=== PATIENT | female | born 1955 | race Caucasian/White ===

== ENCOUNTER 2016-09-13 10:40 | Inpatient (IN) | payer MEDICARE ==
[2016-10-14 09:53] VITALS: BMI 53.5
--- NOTE | 2016-10-14 15:25 | HP ---
HISTORY AND PHYSICAL CHIEF COMPLAINT: Right knee pain. HISTORY OF PRESENT ILLNESS: The patient is a 61-year-old female on disability, who presents with progressive right knee pain secondary to osteoarthrosis despite extensive conservative measures. She notes she is having pain that limits her normal function and activities. PAST MEDICAL HISTORY: Significant for asthma, type 2 diabetes, hypothyroidism, and arthritis. PAST SURGICAL HISTORY: Significant for right and left knee surgery, left total knee arthroplasty, previous incision and drainage of an infected right prepatellar bursitis. CURRENT MEDICATIONS: 1. Januvia. 2. Meloxicam. 3. Metformin. 4. Neurontin. 5. Synthroid. She denies drug allergies. FAMILY HISTORY: Significant for cancer. SOCIAL HISTORY: Negative for current tobacco or alcohol use. 16-POINT REVIEW OF SYSTEMS: Otherwise reviewed and is noncontributory. PHYSICAL EXAMINATION: The patient is approximately 5 foot tall, 288 pounds of endomorphic habitus. HEENT exam is nonfocal. Neck is supple. She has painless passive motion of the right hip. Straight leg raise is negative. Active motion right knee -6 to 100 degrees of flexion. She is tender about the lateral joint line. She has genu valgum alignment. Her distal neurovascular exam appears to be intact in the right lower extremity. X-rays to include weightbearing notch, lateral, and Merchant views of the right knee obtained in the office show severe lateral and patellofemoral compartment narrowing. IMPRESSION: 1. Right knee severe lateral and patellofemoral compartment osteoarthrosis. 2. Increased body mass index. 3. Uek-[id number] diabetes. RECOMMENDATIONS: I talked to the patient at length regarding her treatment options. At this point, she is severely limited because of pain related to her osteoarthrosis despite conservative measures. After a thorough discussion, she opts to proceed with surgery. We will plan to proceed with a right total knee arthroplasty. Risks and benefits were discussed at length in layman's terms. We will institute DVT prophylaxis postoperatively. The patient underwent preoperative medical evaluation by Dr. Maxim Montilla. MMSLAVAL / NELDA: [id number] /
[2016-10-18] MEDS ORDERED: ceFAZolin 3 GM in SODIUM CHLORIDE 0.9% 100 ML IVPB ONE (05:00)
[2016-10-18] MEDS ORDERED: ACETAMINOPHEN TAB 500 MG TAB PO ONE (05:00)
[2016-10-18] MEDS ORDERED: TRANEXAMIC ACID 1,000 MG in SODIUM CHLORIDE 0.9% 100 ML IVPB ONE ×4 (05:00)
[2016-10-18] MEDS ORDERED: MELOXICAM 7.5 MG TAB PO ONE (05:00)
[2016-10-18] MEDS ORDERED: SCOPOLAMINE 1.5MG/72HR PATCH TRANSDERM ONE (05:25)
[2016-10-18] MEDS ORDERED: HYDROmorphone 1 MG/ML 1 ML SYRINGE IVP PRN ×2 (05:25→09:57)
[2016-10-18] MEDS ORDERED: MIDAZOLAM 2 MG/2 ML VIAL IV PRN (05:25)
[2016-10-18] MEDS ORDERED: LIDOCAINE 1% 20 ML VIAL (10MG/ML) FOR IV START INTRADERMA PRN (05:25)
[2016-10-18] MEDS ORDERED: ONDANSETRON 4 MG/2 ML VIAL IVP ONE (05:25)
[2016-10-18] MEDS ORDERED: fentaNYL (PF) 50 MCG/ML 20 ML VIAL IVP PRN (05:25)
[2016-10-18] MEDS ORDERED: DEXAMETHASONE SOD PHOSPHATE 10 MG/ML 1 ML VIAL IV ONE (05:25)
[2016-10-18 06:52] LABS: Glucose,Whole Blood 136 mg/dL (75-99)
[2016-10-18] MEDS: LACTATED RINGERS 1,000 ML IV SCH (07:00)
[2016-10-18 07:08] LABS: Prothrombin Time 9.8 sec (9.0-12.0)
[2016-10-18 07:22] LABS: Partial Thromboplastin Time 18.6 sec (22.0-30.0)
[2016-10-18] MEDS ORDERED: TRANEXAMIC ACID 1,000 MG/10 ML VIAL ONE (07:53)
[2016-10-18] MEDS ORDERED: MIDAZOLAM 2 MG/2 ML VIAL ONE (07:53)
[2016-10-18] MEDS ORDERED: fentaNYL (PF) 50 MCG/ML 2 ML AMP ONE (07:53)
[2016-10-18] MEDS ORDERED: PROPOFOL 10 MG/ML 20 ML VIAL IV ONE (07:53)
[2016-10-18] MEDS ORDERED: SODIUM CHLORIDE 0.9% 100 ML BAG ONE (07:53)
[2016-10-18] MEDS ORDERED: ONDANSETRON 4 MG/2 ML VIAL ONE (07:53)
[2016-10-18] MEDS ORDERED: ROPIVACAINE 1,100 MG, SODIUM CHLORIDE 0.9% 330 ML MISCELLANE PRN ×2 (08:42)
--- NOTE | 2016-10-18 08:43 | P.ONQ ---
Anesthesiology Proc Note - PNB - Peripheral Nerve Block Performed Right Adductor Canal Time Out Performed: Yes Indication: Acute Post-Operative Pain, Dx/Pain Location (Dr Soriano) Sedation Type: Sedate with meaningful contact maintained Preparation: Sterile Dressing Position: Supine Catheter: Indwelling Needle Types: Other (see comment) ([place]) Needle Size: 100mm (4") Needle Gauge: 18 Technique: Ultrasound Injectate: 0.5% Ropivacaine (see comment for volume) (20cc) Blood Aspirated: No Pain Paresthesia on Injection Noted: No Resistance on Injection: Normal Events: Uneventful and Well Tolerated
[2016-10-18] MEDS ORDERED: LACTATED RINGERS 1,000 ML IV ONE (09:00)
[2016-10-18] MEDS ORDERED: ceFAZolin 3,000 MG in SODIUM CHLORIDE 0.9% IRRIGATIO 3,000 ML IRRIGATION ONE (09:20)
[2016-10-18] MEDS ORDERED: ACETAMINOPHEN TAB 325 MG TAB PO PRN (09:57)
[2016-10-18] MEDS ORDERED: NALOXONE 0.4 MG/ML 1 ML VIAL IV PRN (09:57)
[2016-10-18] MEDS ORDERED: MAGNESIUM HYDROXIDE 2,400 MG/10 ML CUP PO PRN (09:57)
[2016-10-18] MEDS ORDERED: traMADol 50 MG TAB PO PRN (09:57)
[2016-10-18] MEDS ORDERED: HYDROcodone/APAP 7.5-325MG 1 EACH TAB PO PRN (09:57)
[2016-10-18] MEDS ORDERED: diphenhydrAMINE 50 MG/ML 1 ML VIAL IVP ONE (10:12)
--- NOTE | 2016-10-18 10:23 | P.OP ---
Date of Procedure: 10/18/16 Preoperative Diagnosis: Right knee severe tricompartmental osteoarthrosis-primary Postoperative Diagnosis: Same Procedure(s) Performed: Right total knee arthroplasty -cemented-cruciate retaining Implants: Vi persona size 7 cemented femoral component, size D cemented tibial component, 13 mm articular surface, 32 mm cemented patellar component. Anesthesia: spinal Surgeon: aByron Soriano Head Of Physics #1: Jai Huff Estimated Blood Loss (ml): 75 Pathology: other (Bone fragments) Condition: stable Disposition: PACU Indications for Procedure: The patient's a 61-year-old female who presents with severe right knee pain secondary osteoarthrosis despite conservative measures. A discussion of the risks and benefits of continued conservative measures versus operative intervention was made with patient. She opted to proceed with surgery. Operative risks to include infection, neurovascular injury, development of blood clots, possible component loosening, possible component failure and need for subsequent procedures was discussed. Informed consent was obtained. Operative Findings: As below Description of Procedure: The patient was brought to the operating room, and after induction of spinal anesthesia the right lower extremity was prepped and draped in normal fashion. The limb was elevated to facilitate exsanguination. The tourniquet was inflated to 270 mmHg. A longitudinal incision extending 3 finger breaths above the superior pole of the patella extending to the medial aspect of the tibial tubercle. Skin and subcutaneous tissues were divided sharply. Electrocautery was used for hemostasis. A medial parapatellar arthrotomy was performed. The medial soft tissues to include the superficial and deep portions of the medial collateral ligament were elevated some periosteally. The patella was everted. A portion of the retropatellar fat pad was excised sharply. The lateral collateral as well as the popliteus tendon was elevated off the lateral femoral epi condyle with electrocautery. A starting hole was made in the distal femur 1 cm anterior to the posterior cruciate ligament origin. An intramedullary guide was inserted planning on 5 valgus distal cut with 10 mm distal resection. The cutting block was pinned in place. There was lateral distal femoral condyle deficiency therefore an additional 2 mm was resected. The posterior referencing sizing guide was utilized. I felt size 7 was most appropriate. I planned on 3 of external rotation. This was verified off the trans-epicondylar axis and the posterior condyles. The cutting block was pinned in place. The anterior, posterior, and chamfer cuts were then made. The bone fragments were removed as well as the residual osteophytes. A trial size 7 femoral component was placed and was fully seated. There was good anterior to posterior and medial to lateral fit. The distal peg holes were drilled. An extra medullary tibial guide was utilized with 7 posterior slope cutting block. This was set in line with the tibial shaft and second metatarsal distally. I planned on 2 mm resection from the lateral compartment. The cutting block was pinned in place. The posterior pushy ligament was protected with a retractor. Proximal tibial cut was made in the bone removed in one fragment. The tibia sized most appropriate-sized the. Remnants of the medial and lateral menisci were excised the capsule junction with electrocautery. The trial femoral and tibial components were placed along with a 13 mm articular surface. I was able to obtain full flexion and extension with good stability with varus and valgus stress. I did piecrust the IT band for additional lateral release. After several flexion and extension cycles the tibial rotation was marked with electrocautery in line with the medial one third of the tibial tubercle. Attention was then paid towards preparing the patella. A patella reamer was utilized taking this down to 14 mm of bone stock. A good flush cut was made. The patella sized most appropriately at 32 mm. The peg holes were drilled. The trial components placed. The knee was taken through range of motion. I had good patellofemoral tracking with no hands technique. The trial components were then removed. The flexion and extension gaps were checked and felt to be symmetric. The residual posterior osteophytes off the distal femur were carefully removed with a curved osteotome. The tibia was prepared in the appropriate rotation with appropriate drill and keel punch. The bony surfaces were prepared with pulsatile lavage and dried. The tibial component was then cemented in placed and was fully seated. Excess cement was removed. The femoral component was cemented place and was fully seated. Excess cement was removed. The trial 13 mm articular surface was placed and the knee was put in full extension. The patella component cemented placed and was fully seated. After the cement had sufficiently hardened, the knee was again taken through range of motion. I had good stability in flexion and extension with varus valgus stress. The trial articular surface was removed and the final one inserted. Care taken to avoid any soft tissue interposition. Pulsatile lavage was utilized. A medial parapatellar prodromal performed. The tourniquet was deflated the proximal a 70 minutes total tourniquet time. I did not feel the need for deep drain. The subcu changed tissues reapproximated interrupted 2-0 Vicryl sutures. The skin was reapproximated with 3-0 subcuticular strata fix suture. Skin tape and adhesive was applied. A sterile dressing was applied. The patient was awoken from sedation and transferred to the recovery room in good condition. Blood loss was estimated at 75 mL. No complications were incurred. Sponge and needle counts were correct in the case.
[2016-10-18 10:24] LABS: Glucose,Whole Blood 152 mg/dL (75-99)
[2016-10-18] MEDS ORDERED: METOCLOPRAMIDE 5 MG/ML 2 ML VIAL IVP ONE (10:40)
--- NOTE | 2016-10-18 10:49 | XR ---
EXAMINATION TYPE: XR knee limited RT DATE OF EXAM: 10/18/2016 CLINICAL HISTORY: Right knee pain and arthritis status post total knee replacement. TECHNIQUE: Portable AP and crosstable lateral views of the right knee are obtained immediately posto peratively. COMPARISON: None FINDINGS: Metallic hardware from total right knee arthroplasty is seen and appears satisfactory in a lignment and position. There is evidence of recent surgery with diffuse subcutaneous gas. IMPRESSION: 1. No acute fractures post right knee replacement.
[2016-10-18] MEDS ORDERED: SODIUM CHLORIDE 0.9% 1,000 ML IV ONE (10:57)
[2016-10-18] MEDS: HYDROcodone/APAP 5-325MG 1 EACH TAB PO PRN ×2 (11:36→23:44)
[2016-10-18 12:04] LABS: Glucose,Whole Blood 201 mg/dL (75-99)
[2016-10-18] MEDS: HYDROmorphone 1 MG/ML 1 ML SYRINGE IVP PRN ×4 (12:14→22:07)
[2016-10-18] MEDS: INSULIN LISPRO (humaLOG) 300 UNIT/3 ML VIAL SQ SCH ×3 (14:03→22:41)
[2016-10-18] MEDS: LEVOTHYROXINE 88 MCG TAB PO SCH (14:13)
[2016-10-18 16:53] LABS: Glucose,Whole Blood 242 mg/dL (75-99)
[2016-10-18] MEDS: ceFAZolin 3 GM in SODIUM CHLORIDE 0.9% 100 ML IVPB SCH ×2 (16:57→23:39)
--- NOTE | 2016-10-18 18:02 | CONS ---
CONSULTATION DATE OF CONSULTATION: 10/18/2016 REASON FOR CONSULTATION: Medical management requested by Dr. Soriano. CONSULTATION: This is a pleasant 61-year-old patient of Dr. Montilla who has undergone a right total knee arthroplasty. Chronic stable medical conditions include diabetes, osteoarthritis, depression, restless leg syndrome, hypothyroidism. Post procedure, the patient's restless leg syndrome is bothering her a bit. No nausea or vomiting. is at the bedside. Denies any cardiac history. REVIEW OF SYSTEMS: CONSTITUTION: None. HEENT: None. RESPIRATORY: None. CARDIOVASCULAR: None. GASTROINTESTINAL: None. GENITOURINARY: None. MUSCULOSKELETAL: Aches and pains in different joints. DERMATOLOGICAL: None. HEMATOLOGICAL: None. LYMPHATICS: None. PSYCHIATRY: Depression, controlled. NEUROLOGICAL: Restless legs. PAST MEDICAL HISTORY: 1. Diabetes mellitus, type 2. 2. Osteoarthritis. 3. Depression. 4. Restless leg syndrome. 5. Hypothyroidism. PAST SURGICAL HISTORY: 1. Bariatric surgery. 2. . 3. Cholecystectomy. 4. Hernia repair. 5. Joint replacement. 6. Abdominoplasty. 7. Skin removed from the upper legs. 8. Gastric sleeve. 9. Stomach stapling. 10.Left total knee. 11.Cataract surgery with implants, bilateral. SOCIAL HISTORY: . Alcohol rarely. Does not smoke. FAMILY HISTORY: DVT. HOME MEDICATIONS: 1. Januvia 100 mg p.o. daily. 2. Requip 1 mg p.o. q.i.d. 3. Metformin 1000 mg p.o. b.i.d. 4. Viibryd 40 mg p.o. daily. 5. Mobic 15 mg p.o. daily. 6. Victoza 1.2 mg subcutaneously at noon. 7. Synthroid 88 mcg p.o. daily. 8. Insulin Lantus (Toujeo) 35 units subcutaneously daily. 9. [place] 1 tablet p.o. t.i.d. p.r.n. 10.Neurontin 300 mg p.o. b.i.d. 11.Invokana 300 mg p.o. daily. 12.Ventolin HFA 1 to 2 puffs q.6 p.r.n. 13.Xarelto 10 mg p.o. daily. ALLERGIES: ADHESIVE TAPE. PHYSICAL EXAMINATION: On examination, temperature 97, pulse 56, respirations 16, blood pressure 111/55 pulse ox 93% on room air. GENERAL APPEARANCE: Well built, BMI 53.5. Sitting up. A bit anxious-appearing. HEENT: Oral cavity normal. EYES: Pupils equal. Conjunctivae normal. NECK: Short, thick. JVD unable to assess. RESPIRATORY: Effort normal. Lungs are clear. CARDIOVASCULAR: First and second sounds normal. No edema. ABDOMEN: Soft, non-tender. Liver and spleen not palpable. LYMPHATICS: No lymph node palpable in neck or axillae. PSYCHIATRY: Alert and oriented x3. Mood and affect normal. NEUROLOGICAL: Pupils equal. Cranial nerves grossly intact. Power and sensation grossly intact. EXTREMITIES: Right knee in a dressing. INVESTIGATIONS: Accu-Cheks are noted. ASSESSMENT: 1. Right total knee arthroplasty. 2. Primary osteoarthritis in multiple joints, bilateral. 3. Depression not otherwise specified. 4. Diabetes mellitus, type 2,chronically on insulin. 5. Chronic restless leg syndrome, currently uncontrolled. 6. Morbid obesity; BMI 53.5. PLAN: Home medications are resumed. Accu-Cheks to be closely followed. Patient is on Xarelto for DVT prophylaxis. Will get dietitian to see the patient. Care was discussed with the patient and her at the bedside. Questions were answered. Thank you, Dr. Soriano. MMLILY / NELDA: [phone] /
[2016-10-18] MEDS: metFORMIN 500 MG TAB PO SCH (18:13)
[2016-10-18] MEDS: SENNOSIDES-DOCUSATE SODIUM 1 EACH TAB PO SCH (22:07)
[2016-10-18 22:12] LABS: Glucose,Whole Blood 143 mg/dL (75-99)
[2016-10-19] MEDS: HYDROmorphone 1 MG/ML 1 ML SYRINGE IVP PRN ×6 (03:37→17:51)
[2016-10-19] MEDS: LACTATED RINGERS 1,000 ML IV SCH ×2 (03:38→22:34)
[2016-10-19] MEDS: LEVOTHYROXINE 88 MCG TAB PO SCH (05:56)
[2016-10-19 06:52] LABS: Glucose,Whole Blood 150 mg/dL (75-99)
[2016-10-19 07:02] LABS: Basophils % (A) 0 %; CH 28.4; CHCM 32.2; Eosinophils % (A) 1 %; HCT 36.8 % (34.0-46.0); HDW 2.89; Luc # (Auto) 0.15; Luc % (Auto) 2; Lymphocytes # (A) 1.9 k/uL (1.0-4.8); Lymphocytes % (A) 20 %; MCH 28.9 pg (25.0-35.0); MCHC 32.7 g/dL (31.0-37.0); MCV 88.5 fL (80.0-100.0); Monocytes # (A) 0.8 k/uL (0-1.0); Monocytes % (A) 8 %; Neutrophils # (A) 6.8 k/uL (1.3-7.7); Neutrophils % (A) 70 %; RBC 4.16 m/uL (3.80-5.40); RDW 13.9 % (11.5-15.5); WBC 9.7 k/uL (3.8-10.6); WBC (Perox) 10.28
[2016-10-19] MEDS: HYDROcodone/APAP 5-325MG 1 EACH TAB PO PRN ×3 (07:07→21:20)
[2016-10-19] MEDS: INSULIN LISPRO (humaLOG) 300 UNIT/3 ML VIAL SQ SCH ×4 (07:55→21:11)
[2016-10-19] MEDS: metFORMIN 500 MG TAB PO SCH ×2 (07:59→17:50)
--- NOTE | 2016-10-19 08:46 | P.PN ---
Progress Note - Text The patient is status post right adductor canal catheter placement. The catheter was placed for postoperative pain control, status post total right arthroplasty. Ropivacaine 0.2% is infusing at 8 mLs per hour. The patient has no complaints of right lower extremity numbness or weakness. Patient's VAS score is 0 -10. Assessment: Patient's adductor canal catheter is in place and working appropriately. Plan: continue infusion and adjust it as needed.
[2016-10-19] MEDS ORDERED: NON-FORMULARY DRUG (Canagliflozin [Invokana] 300 MG) PO SCH (09:00)
[2016-10-19] MEDS ORDERED: NON-FORMULARY DRUG (Vilazodone Hcl [Viibryd] 40 MG) PO SCH ×3 (09:00)
[2016-10-19] MEDS: FAMOTIDINE 20 MG TAB PO SCH (09:18)
[2016-10-19] MEDS: LINAGLIPTIN 5 MG TABLET PO SCH (09:20)
[2016-10-19] MEDS: RIVAROXABAN 10 MG TAB PO SCH (09:20)
[2016-10-19] MEDS: VIIBRYD 40 MG PO SCH (09:21)
[2016-10-19 11:11] LABS: Glucose,Whole Blood 155 mg/dL (75-99)
[2016-10-19] MEDS ORDERED: NON-FORMULARY DRUG (Liraglutide [Victoza 2-Pak] 1.2 MG) SQ SCH (12:00)
--- NOTE | 2016-10-19 12:10 | P.PN ---
Subjective Principal diagnosis: Status post right total knee arthroplasty Patient is seen today resting in her hospital chair, she appears to be no acute distress. She did notices increasing pain in the right calf region. She states last night when she attempts to get up with therapy, leg give out on her and she had a hyperextensible type injury. She has no increase in pain involving the knee itself. She has ambulated minimally since then. She denies any headaches, chest pain, shortness of breath, abdominal discomfort. Objective - Vital Signs Vital signs: Vital Signs Temp 97.0 F L 10/19/16 07:00 Pulse 84 10/19/16 08:00 Resp 18 10/19/16 07:00 BP 118/56 10/19/16 07:00 Pulse Ox 95 10/19/16 07:00 Intake & Output 10/18/16 10/19/16 10/19/16 18:59 06:59 18:59 Intake Total 2236 750 180 Output Total 1325 1150 900 Balance 911 -400 -720 Weight 124.284 kg Intake: IV 2236 Oral 750 180 Output: Urine 1250 1150 900 Uretheral (Welch) 900 Estimated Blood Loss 75 Other: Voiding Method Indwelling Catheter Indwelling Catheter # Voids 1 - Exam Right lower extremity: Incisions clean, dry, and intact. Minimal soft tissue swelling around the knee. Calf is painful with palpation, there is obvious swelling noted. Plantar flexion, dorsiflexion, EHL, FHL are intact. Sensory exam to light touch throughout the extremities intact. Dorsal pedis pulses 2+. - Labs CBC & Chem 7: 10/19/16 06:12 Labs: Abnormal Lab Results - Last 24 Hours (Table) 10/18/16 10/18/16 10/19/16 Range/Units 16:33 22:11 06:50 POC Glucose (mg/dL) 242 H 143 H 150 H (75-99) mg/dL 10/19/16 Range/Units 11:08 POC Glucose (mg/dL) 155 H (75-99) mg/dL Assessment and Plan Plan: Assessment: 1. Postop day 1 status post right total knee arthroplasty 2. Calf strain Plan: 1. Pain control, continue current medications 2. Lower extremity ultrasound on the right side for further evaluation of calf pain and swelling 3. GI and DVT prophylaxis, continue Xarelto 4. Basic range of motion exercises of the foot and ankle along with knee recommended, continue therapy 5. Ice and elevate/daily dressing changes 6. Medical recommendations 7. Discharge planning: Patient likely be discharged in the next day or 2 Time with Patient: Less than 30
--- NOTE | 2016-10-19 13:39 | US ---
EXAMINATION TYPE: US venous doppler duplex LE RT DATE OF EXAM: 10/19/2016 1:07 PM COMPARISON: NONE CLINICAL HISTORY: right calf pain. SIDE PERFORMED: right TECHNIQUE: The lower extremity deep venous system is examined utilizing real time linear array sonog crystal with graded compression, doppler sonography and color-flow sonography. VESSELS IMAGED: External Iliac Vein (EIV) Common Femoral Vein Deep Femoral Vein Greater Saphenous Vein * Femoral Vein-unable to view distal for compression Popliteal Vein Small Saphenous Vein * Proximal Calf Veins (* superficial vessels) Morbidly obese patient Right Leg: Negative for DVT Exam AP limited somewhat by patient body habitus. IMPRESSION: Grayscale, color doppler, spectral doppler imaging performed of the deep veins of the lo wer extremities. There is normal flow, compressibility, vascular waveforms. No evident deep venous arthrosis at or above the right knee. Follow-up as indicated in 24 to 48 hours.
[2016-10-19] MEDS: INSULIN GLARGINE 100 UNIT/ML 10 ML VIAL SQ SCH (14:12)
--- NOTE | 2016-10-19 15:56 | P.PN ---
<Ronni Moran - Last Filed: 10/20/16 12:03> Progress Note - Text Attending note. Date of service-10/19/2016 This patient was seen and examined by me . Discussed the patient with my nurse practitioner Ms. Casper. Right knee surgery. Pain is present. No chest pain no shortness of breath. On examination: Lungs-clear, cardiovascular first seconds are normal Investigations: Assessment and plan: Right total knee arthroplasty with some pain. Continue current medication and treatment plan. Care discussed with patient and her <Martha Casper - Last Filed: 10/20/16 16:18> Progress Note - Text DATE OF SERVICE: 10/19/2016 PRESENTING COMPLAINT: Medical management, status post knee surgery HISTORY OF PRESENT ILLNESS: 59-year-old female status post right total knee arthroplasty. INTERVAL HISTORY: 10/19/2016: Postop day 1 from right total knee arthroplasty, no nausea or vomiting, tolerating her diet, no BM, working with physical therapy, pain meds are providing adequate pain control. Restless leg syndrome has been under control. REVIEW OF SYSTEMS: Done for constitutional ,cardiovascular, GI, pulmonary with relevant findings as above. CURRENT MEDICATIONS [place], Pepcid, Dilaudid, Lantus, Humalog, urgent, milk of magnesia, Glucophage, Senokot Zofran, Ultram. PHYSICAL EXAM VITAL SIGNS: Temperature 97.0, pulse 86, respiratory rate 18, blood pressure 118/56, oxygen saturation 95% on room air. GENERAL APPEARANCE: Sitting up in the chair not in distress. EYES: Pupils equal. Conjunctiva normal. NECK: JVD not raised. Mass not palpable. RESPIRATORY: Respiratory effort normal. Lungs diminished to auscultation. CARDIOVASCULAR: First and second sounds normal. No edema. ABDOMEN: Soft. Liver and spleen not palpable. No tenderness. No mass palpable. PSYCHIATRY: Alert and oriented x3. Mood and affect normal. MUSCULOSKELETAL: Right knee covered with surgical dressing, no drainage noted tenderness to palpation INVESTIGATIONS: CBC unremarkable, Accu-Cheks noted. ASSESSMENT: -Right total knee arthroplasty -Nausea likely due to narcotic pain medication. -Primary osteoarthritis of multiple joints, bilateral. -Depression otherwise specified. -Diabetes mellitus type 2, chronically on insulin. -Chronic restless leg syndrome, improving -Morbid obesity, BMI 53.5. PLAN: Follow Accu-Cheks closely, continue DVT prophylaxis with Xarelto. Dietitian to see the patient today. We will continue to follow closely, questions answered regarding plan of care family is in agreement. FOUNDER / CEO statement: Patient was seen and examined by nurse practitioner Martha Casper and all elements of the case discussed with attending Dr. Moran
[2016-10-19 17:49] LABS: Glucose,Whole Blood 203 mg/dL (75-99)
[2016-10-19] MEDS: ONDANSETRON 4 MG/2 ML VIAL IVP PRN (18:49)
[2016-10-19 18:55] LABS: Glucose,Whole Blood 228 mg/dL (75-99)
[2016-10-19 20:27] LABS: Glucose,Whole Blood 156 mg/dL (75-99)
[2016-10-19] MEDS: SENNOSIDES-DOCUSATE SODIUM 1 EACH TAB PO SCH (21:10)
[2016-10-20] MEDS: HYDROmorphone 1 MG/ML 1 ML SYRINGE IVP PRN ×2 (02:20→09:41)
[2016-10-20] MEDS: LEVOTHYROXINE 88 MCG TAB PO SCH (05:35)
[2016-10-20] MEDS: HYDROcodone/APAP 5-325MG 1 EACH TAB PO PRN (05:35)
[2016-10-20 07:11] LABS: Basophils % (A) 0 %; CH 28.4; CHCM 32.4; Eosinophils # (A) 0.2 k/uL (0-0.7); Eosinophils % (A) 1 %; HCT 40.2 % (34.0-46.0); HDW 2.89; HGB 13.2 gm/dL (11.4-16.0); Luc # (Auto) 0.19; Luc % (Auto) 2; Lymphocytes % (A) 15 %; MCH 28.9 pg (25.0-35.0); MCHC 32.8 g/dL (31.0-37.0); Mean Platelet Volume 7.1; Monocytes % (A) 8 %; Neutrophils # (A) 9.7 k/uL (1.3-7.7); Neutrophils % (A) 74 %; RBC 4.57 m/uL (3.80-5.40); WBC 13.1 k/uL (3.8-10.6); WBC (Perox) 13.43
[2016-10-20 07:12] LABS: Glucose,Whole Blood 174 mg/dL (75-99)
[2016-10-20] MEDS: INSULIN LISPRO (humaLOG) 300 UNIT/3 ML VIAL SQ SCH ×4 (07:28→20:58)
[2016-10-20] MEDS: LINAGLIPTIN 5 MG TABLET PO SCH (07:30)
[2016-10-20] MEDS: FAMOTIDINE 20 MG TAB PO SCH (07:30)
[2016-10-20] MEDS: metFORMIN 500 MG TAB PO SCH ×2 (07:30→18:03)
[2016-10-20] MEDS: VIIBRYD 40 MG PO SCH (07:30)
[2016-10-20] MEDS: RIVAROXABAN 10 MG TAB PO SCH (07:30)
[2016-10-20] MEDS ORDERED: ALPRAZolam 0.25 MG TAB PO PRN (07:59)
[2016-10-20] MEDS ORDERED: hydrOXYzine PAMOATE 25 MG CAP PO PRN (09:34)
--- NOTE | 2016-10-20 09:37 | P.PN ---
Subjective Principal diagnosis: Status post right total knee arthroplasty Patient is seen today resting in her hospital chair, she appears to be no acute distress. Patient states that the pain Is slightly improved, she is having some slight increase in pain in the knee. She denies any headaches, chest pain , shortness of breath, abdominal discomfort. Objective - Vital Signs Vital signs: Vital Signs Temp 97.8 F 10/20/16 07:00 Pulse 111 H 10/20/16 07:00 Resp 17 10/20/16 07:00 BP 166/70 10/20/16 07:00 Pulse Ox 95 10/20/16 07:00 Intake & Output 10/19/16 10/20/16 10/20/16 18:59 06:59 18:59 Intake Total 380 500 Output Total 900 Balance -520 500 Intake: Intake, IV Titration 200 Amount Lactated Ringers 1,000 ml 200 @ 50 mls/hr IV .Q20H JENNIFER Rx#:[id number] Oral 180 500 Output: Urine 900 Uretheral (Welch) 900 Other: Voiding Method Indwelling Catheter # Voids 1 - Exam Right lower extremity: Incisions clean, dry, and intact. Minimal soft tissue swelling around the knee. Calf is painful with palpation, there is obvious swelling noted. Plantar flexion, dorsiflexion, EHL, FHL are intact. Sensory exam to light touch throughout the extremities intact. Dorsal pedis pulses 2+. - Labs CBC & Chem 7: 10/20/16 06:51 Labs: Abnormal Lab Results - Last 24 Hours (Table) 10/19/16 10/19/16 10/19/16 Range/Units 11:08 17:48 18:53 WBC (3.8-10.6) k/uL Neutrophils # (1.3-7.7) k/uL POC Glucose (mg/dL) 155 H 203 H 228 H (75-99) mg/dL 10/19/16 10/20/16 10/20/16 Range/Units 20:25 06:51 07:04 WBC 13.1 H (3.8-10.6) k/uL Neutrophils # 9.7 H (1.3-7.7) k/uL POC Glucose (mg/dL) 156 H 174 H (75-99) mg/dL Assessment and Plan Plan: Assessment: 1. Postop day #2 status post right total knee arthroplasty 2. Calf strain Plan: 1. Pain control, will adjust oral medications 2. Ultrasound of left lower extremity was negative for DVT 3. GI and DVT prophylaxis, continue Xarelto 4. Basic range of motion exercises of the foot and ankle along with knee recommended, continue therapy 5. Ice and elevate/daily dressing changes 6. Medical recommendations 7. Discharge planning: Patient likely be discharged home tomorrow Time with Patient: Less than 30
[2016-10-20] MEDS: ONDANSETRON 4 MG/2 ML VIAL IVP PRN (09:41)
[2016-10-20 11:25] LABS: Glucose,Whole Blood 204 mg/dL (75-99)
[2016-10-20] MEDS: INSULIN GLARGINE 100 UNIT/ML 10 ML VIAL SQ SCH (12:26)
--- NOTE | 2016-10-20 13:20 | P.PN ---
Progress Note - Text 0710 anesthesia POD 2. Patient is status post right TKR under spinal anesthesia with a right adductor canal catheter placed for postoperative pain relief. With ropivacaine 0.2% running at 8 mL per hour the patient's VAS is cc 0, 4). Catheter site is clean dry and the dressing is intact.
[2016-10-20] MEDS: HYDROcodone/APAP 7.5-325MG 1 EACH TAB PO PRN ×2 (13:48→20:18)
--- NOTE | 2016-10-20 16:17 | P.PN ---
Progress Note - Text DATE OF SERVICE: 10/20/2016 PRESENTING COMPLAINT: Medical management, status post knee surgery HISTORY OF PRESENT ILLNESS: 59-year-old female status post right total knee arthroplasty. INTERVAL HISTORY: 10/20/2016: Postop day 2 from right total knee arthroplasty, no nausea or vomiting, tolerating her diet, no BM, working with physical therapy, complains of pain On- Q pump and narcotic pain meds helping, restless legs have been under control with medication. 10/19/2016: Postop day 1 from right total knee arthroplasty, no nausea or vomiting, tolerating her diet, no BM, working with physical therapy, pain meds are providing adequate pain control. Restless leg syndrome has been under control. REVIEW OF SYSTEMS: Done for constitutional ,cardiovascular, GI, pulmonary with relevant findings as above. CURRENT MEDICATIONS [place], Pepcid, Dilaudid, Lantus, Humalog, urgent, milk of magnesia, Glucophage, Senokot Zofran, Ultram. PHYSICAL EXAM VITAL SIGNS: Temperature 97.8, pulse 111, respirations 17, blood pressure 166/70, oxygen saturation 95% on 3 L GENERAL APPEARANCE: Lying in bed, sleepy not in distress. EYES: Pupils equal. Conjunctiva normal. NECK: JVD not raised. Mass not palpable. RESPIRATORY: Respiratory effort normal. Lungs diminished to auscultation. CARDIOVASCULAR: First and second sounds normal. No edema. ABDOMEN: Soft. Liver and spleen not palpable. No tenderness. No mass palpable. PSYCHIATRY: Alert and oriented x3. Mood and affect normal. MUSCULOSKELETAL: Right knee covered with surgical dressing INVESTIGATIONS: CBC unremarkable, Accu-Cheks noted. ASSESSMENT: -Right total knee arthroplasty -Nausea likely due to narcotic pain medication. -Primary osteoarthritis of multiple joints, bilateral. -Depression otherwise specified. -Diabetes mellitus type 2, chronically on insulin. -Chronic restless leg syndrome, improving -Morbid obesity, BMI 53.5. PLAN: Follow Accu-Cheks closely, continue DVT prophylaxis with Xarelto. Discharge planning for tomorrow, We will continue to follow closely, questions answered regarding plan of care family is in agreement. AVIONICS MECHANIC statement: Patient was seen and examined by nurse practitioner Martha Casper and all elements of the case discussed with attending Dr. Moran
[2016-10-20 16:27] LABS: Glucose,Whole Blood 182 mg/dL (75-99)
[2016-10-20] MEDS: LACTATED RINGERS 1,000 ML IV SCH (18:05)
[2016-10-20] MEDS: SENNOSIDES-DOCUSATE SODIUM 1 EACH TAB PO SCH (20:19)
[2016-10-20 20:27] LABS: Glucose,Whole Blood 191 mg/dL (75-99)
--- NOTE | 2016-10-20 22:32 | PN ---
PROGRESS NOTE DATE OF SERVICE: 10/20/2016. ATTENDING NOTE: Patient examined by me. I discussed with nurse practitioner, Ms. Casper. The patient is status post right knee arthroplasty. Significant pain, getting IV Dilaudid. Had nausea and threw up her breakfast this morning. Tired. at the bedside. EXAM: Her lungs distant breath sounds. Cardiovascular. HEART: Sounds distant. Dressing of the right knee. ABDOMEN: Soft, nontender. INVESTIGATIONS: White count 13.1. ASSESSMENT: 1. Right total knee arthroplasty. 2. Nausea vomiting as a side effect of pain medications. PLAN: Continue current medication and treatment plan. I did talk to the and the patient to order design maintenance engineer food. Give anti nausea medication. Follow. MMODL / IJN: [id number] /
[2016-10-21] MEDS: HYDROcodone/APAP 7.5-325MG 1 EACH TAB PO PRN ×3 (01:30→12:39)
[2016-10-21] MEDS: LEVOTHYROXINE 88 MCG TAB PO SCH (05:57)
[2016-10-21 07:16] LABS: Glucose,Whole Blood 151 mg/dL (75-99)
[2016-10-21 07:36] LABS: Basophils % (A) 0 %; CH 29.5; CHCM 33.4; Eosinophils # (A) 0.2 k/uL (0-0.7); Eosinophils % (A) 2 %; HCT 39.4 % (34.0-46.0); HDW 2.96; HGB 12.7 gm/dL (11.4-16.0); Luc # (Auto) 0.15; Luc % (Auto) 2; Lymphocytes # (A) 1.3 k/uL (1.0-4.8); Lymphocytes % (A) 14 %; MCH 28.7 pg (25.0-35.0); MCHC 32.3 g/dL (31.0-37.0); MCV 88.7 fL (80.0-100.0); Mean Platelet Volume 7.5; Monocytes # (A) 0.6 k/uL (0-1.0); Monocytes % (A) 6 %; Neutrophils # (A) 7.2 k/uL (1.3-7.7); Neutrophils % (A) 76 %; RBC 4.44 m/uL (3.80-5.40); RDW 14.7 % (11.5-15.5); WBC 9.5 k/uL (3.8-10.6)
[2016-10-21 07:43] VITALS: BP 138/65; PULSE 96; RESP 14; TEMP 99
[2016-10-21] MEDS: INSULIN LISPRO (humaLOG) 300 UNIT/3 ML VIAL SQ SCH ×2 (07:50→12:45)
[2016-10-21] MEDS: LINAGLIPTIN 5 MG TABLET PO SCH (07:51)
[2016-10-21] MEDS: RIVAROXABAN 10 MG TAB PO SCH (07:51)
[2016-10-21] MEDS: metFORMIN 500 MG TAB PO SCH (07:51)
[2016-10-21] MEDS: VIIBRYD 40 MG PO SCH (07:51)
[2016-10-21] MEDS: FAMOTIDINE 20 MG TAB PO SCH (07:51)
--- NOTE | 2016-10-21 09:26 | P.PN ---
Subjective Principal diagnosis: Status post right total knee arthroplasty Patient is seen today resting in her hospital chair, she appears to be no acute distress. Patient states that the pain is much improved since yesterday. She denies any headaches, chest pain, shortness of breath, abdominal discomfort. Objective - Vital Signs Vital signs: Vital Signs Temp 99 F 10/21/16 07:00 Pulse 96 10/21/16 07:00 Resp 14 10/21/16 07:00 BP 138/65 10/21/16 07:00 Pulse Ox 92 L 10/21/16 07:00 Intake & Output 10/20/16 10/21/16 10/21/16 18:59 06:59 18:59 Other: # Voids 1 1 # Bowel Movements 0 - Exam Right lower extremity: Incisions clean, dry, and intact. Minimal soft tissue swelling around the knee. Calf is soft, minimal tenderness with palpation. Plantar flexion, dorsiflexion, EHL, FHL are intact. Sensory exam to light touch throughout the extremities intact. Dorsal pedis pulses 2+. - Labs CBC & Chem 7: 10/21/16 07:09 Labs: Abnormal Lab Results - Last 24 Hours (Table) 10/20/16 10/20/16 10/20/16 Range/Units 11:24 16:18 20:25 POC Glucose (mg/dL) 204 H 182 H 191 H (75-99) mg/dL 10/21/16 Range/Units 07:06 POC Glucose (mg/dL) 151 H (75-99) mg/dL Assessment and Plan Plan: Assessment: 1. Postop day #3 status post right total knee arthroplasty 2. Calf strain Plan: 1. Pain control, will adjust oral medications 2. Ultrasound of left lower extremity was negative for DVT 3. GI and DVT prophylaxis, continue Xarelto 4. Basic range of motion exercises of the foot and ankle along with knee recommended, continue therapy 5. Ice and elevate/daily dressing changes 6. Medical recommendations 7. Discharge planning: Patient will be discharged home today Time with Patient: Less than 30
--- NOTE | 2016-10-21 09:31 | P.DS ---
Providers Date of admission: 10/18/16 06:27 Expected date of discharge: 10/21/16 Attending physician: Bayron Soriano Consults: 10/18/16 09:57 Consult Physician Routine Consulting Provider: Maxim Montilla Consult Reason/Comments: Medical Management Do you want consulting provider notified?: Yes 10/18/16 11:18 Consult Physician Routine Consulting Provider: Ronni Moran Consult Reason/Comments: medical managment Do you want consulting provider notified?: Yes Primary care physician: Maxim Montilla Hospital Course: Date of admission: 10/18/2016 Date of discharge: 10/21/2016 Admission diagnosis: Status post right total knee arthroplasty Discharge diagnosis: Same Attending physician: Dr. Soriano Surgical procedures: Right total knee arthroplasty Brief history: Patient is a 61-year-old female with a history of with progressive primary right knee osteoarthritis. At this point patient has failed conservative treatment measures and has opted to proceed with a elective right total knee arthroplasty. Hospital course: Details of patient's surgery can be found in operative report. Patient tolerated the procedure well and was subsequently transported to orthopedic floor. Patient's orthopeidc and medical care was provided daily. Patient had daily laboratory tests performed for evaluation of overall blood counts. Patient had daily physical therapy to include strengthening range of motion as well as education with walker ambulation. Patient had daily CPM usage as part of their physical therapy program. Patient was treated with Xarelto for their postoperative DVT prophylaxis during their inpatient stay. Patient was noted to have a relatively uneventful postoperative course. Patient reported satisfactory pain control with oral pain medications by postoperative day 1. Patient showed satisfactory progress with physical therapy. Patient moved steadily through the program and had no difficulty meeting the goals by postoperative day 3. Given patient's otherwise satisfactory course and having met physical therapy goals, plan is to discharge patient home on postoperative day 3. Discharge condition/disposition: Patient will be discharged home in stable condition. Discharge medications: Instructions are given on resumption of patient's normal daily medications per primary care recommendation, in addition patient will be prescribed [place] 7.5 mg/325 mg, tramadol 50 mg, Vistaril 25 mg, Xarelto 10 mg, Pepcid 20 mg, Colace 100 mg. Discharge instructions: 1. Wound care and infection precautions, keep incision dry and covered while showering, no lotions, creams, moisturizers. No soaking, tubs, pools, hottubs. Do not scrub over the incision. 2. Weight-bear as tolerated with walker / cane until follow-up. 3. Ice and elevate when necessary. Do not exceed 20 minutes per hour with ice pack. 4. Utilize compression sleeve until seen at first follow up appointment. 5. Visiting nursing care. 6. Home physical therapy including home CPM. 7. Pain meds and anticoagulants per prescription. 8. Pain medication has potential to cause constipation. Increase oral fluid and fiber intake. Contact primary care provider if you have not had a bowel movement within 48 hours after discharge 9. No anti-inflammatory medication until discussed at first post operative visit, this including Motrin, Aleve, Mobic, Diclofenac. 10. Follow up in office at 2 weeks postop with Ruslan Huff PA-C 11. Follow up with your primary care doctor 7-10 days after discharge. 12. Contact [facility] with any questions, . Procedures: Right total knee arthroplasty Patient Condition at Discharge: Good Plan - Discharge Summary New Discharge Prescriptions: New Rivaroxaban [Xarelto] 10 mg PO DAILY #12 tab Docusate [Colace] 100 mg PO DAILY #30 capsule Famotidine [Pepcid] 20 mg PO DAILY #30 tablet HYDROcodone/APAP 7.5-325MG [[place] 7.5] 1 - 2 each PO Q6HR PRN #60 tab PRN Reason: Pain hydrOXYzine PAMOATE [Vistaril] 25 mg PO Q6HR #40 capsule traMADol HCl [Ultram] 50 mg PO Q6H PRN #40 tab PRN Reason: Pain No Action rOPINIRole HCL [Requip] 1 mg PO QID Vilazodone HCl [Viibryd] 40 mg PO DAILY metFORMIN HCL 1,000 mg PO BID Gabapentin [Neurontin] 300 mg PO BID Liraglutide [Victoza 2-John] 1.2 mg SQ 1200 Insulin Glargine,Hum.rec.anlog [Jim Castaneda] 35 units SQ DAILY@1200 Canagliflozin [Invokana] 300 mg PO DAILY sitaGLIPtin [Januvia] 100 mg PO DAILY Albuterol Inhaler [Ventolin Hfa Inhaler] 1 - 2 puff INHALATION RT-Q6H PRN PRN Reason: Shortness Of Breath Levothyroxine Sodium [Synthroid] 88 mcg PO DAILY Discharge Medication List Vilazodone HCl [Viibryd] 40 mg PO DAILY 09/28/13 [History] metFORMIN HCL 1,000 mg PO BID 09/28/13 [History] rOPINIRole HCL [Requip] 1 mg PO QID 09/28/13 [History] Albuterol Inhaler [Ventolin Hfa Inhaler] 1 - 2 puff INHALATION RT-Q6H PRN [History] Canagliflozin [Invokana] 300 mg PO DAILY 10/14/16 [History] Gabapentin [Neurontin] 300 mg PO BID 10/14/16 [History] Insulin Glargine,Hum.rec.anlog [[place] Solostar] 35 units SQ DAILY@1200 [History] Liraglutide [Victoza 2-John] 1.2 mg SQ 1200 10/14/16 [History] sitaGLIPtin [Januvia] 100 mg PO DAILY 10/14/16 [History] Levothyroxine Sodium [Synthroid] 88 mcg PO DAILY 10/18/16 [History] Rivaroxaban [Xarelto] 10 mg PO DAILY #12 tab 10/18/16 [Rx] Docusate [Colace] 100 mg PO DAILY #30 capsule 10/21/16 [Rx] Famotidine [Pepcid] 20 mg PO DAILY #30 tablet 10/21/16 [Rx] HYDROcodone/APAP 7.5-325MG [[place] 7.5] 1 - 2 each PO Q6HR PRN #60 tab 10/21/16 [ Rx] hydrOXYzine PAMOATE [Vistaril] 25 mg PO Q6HR #40 capsule 10/21/16 [Rx] traMADol HCl [Ultram] 50 mg PO Q6H PRN #40 tab 10/21/16 [Rx] Follow up Appointment(s)/Referral(s): [facility], [NON-STAFF] - Jai Huff PAC [PHYSICIAN FITNESS INSTRUCTOR] - 11/02/16 3:10 pm Activity/Diet/Wound Care/Special Instructions: Orthopedic Discharge Instructions: 1. Wound care and infection precautions, keep incision dry and covered while showering, no lotions, creams, moisturizers. No soaking, pools, hot tubs. Do not scrub over incision. 2. Weight-bear as tolerated with walker / cane until follow-up. 3. Ice and elevate when necessary. Do not exceed 20 minutes per hour with ice pack. 4. Utilize compression sleeve until seen at first follow up appointment. 5. Visiting nursing care. 6. Home physical therapy . 7. Pain meds and anticoagulants per prescription. 8. Pain medication has potential to cause constipation. Increase oral fluid and fiber intake. Contact primary care provider if you have not had a bowel movement within 48 hours after discharge. 9. No anti-inflammatory medication until discussed at first post operative visit, this including Motrin, Aleve, Mobic, Diclofenac. 10. Follow up in office at 2 weeks postop with Ruslan Huff PA-C 11. Follow up with your primary care doctor 7-10 days after discharge. 12. Contact [facility] with any questions, . Discharge Disposition: HOME WITH HOME HEALTH SERVICES
--- NOTE | 2016-10-21 11:14 | P.PN ---
Progress Note - Text DATE OF SERVICE: 10/21/2016 PRESENTING COMPLAINT: Medical management, status post knee surgery HISTORY OF PRESENT ILLNESS: 59-year-old female status post right total knee arthroplasty. INTERVAL HISTORY: 10/21/2016: Postop day 3 right total knee arthroplasty no nausea or vomiting, tolerating her diet, working with physical therapy, pain better controlled On-Q pump in place. Restless legs have been under control with medication. 10/20/2016: Postop day 2 from right total knee arthroplasty, no nausea or vomiting, tolerating her diet, no BM, working with physical therapy, complains of pain On- Q pump and narcotic pain meds helping, restless legs have been under control with medication. 10/19/2016: Postop day 1 from right total knee arthroplasty, no nausea or vomiting, tolerating her diet, no BM, working with physical therapy, pain meds are providing adequate pain control. Restless leg syndrome has been under control. REVIEW OF SYSTEMS: Done for constitutional ,cardiovascular, GI, pulmonary with relevant findings as above. CURRENT MEDICATIONS [place], Pepcid, Dilaudid, Lantus, Humalog, urgent, milk of magnesia, Glucophage, Senokot Zofran, Ultram. PHYSICAL EXAM VITAL SIGNS: Temperature 99.0, pulse 96, respiratory rate 14, blood pressure 138/65, oxygen saturation 92% on room air. GENERAL APPEARANCE: Sitting in a chair more awake not in distress. EYES: Pupils equal. Conjunctiva normal. NECK: JVD not raised. Mass not palpable. RESPIRATORY: Respiratory effort normal. Lungs diminished to auscultation. CARDIOVASCULAR: First and second sounds normal. No edema. ABDOMEN: Soft. Liver and spleen not palpable. No tenderness. No mass palpable. PSYCHIATRY: Alert and oriented x3. Mood and affect normal. MUSCULOSKELETAL: Right knee covered with surgical dressing INVESTIGATIONS: CBC unremarkable, Accu-Cheks noted. ASSESSMENT: -Right total knee arthroplasty -Nausea likely due to narcotic pain medication. -Primary osteoarthritis of multiple joints, bilateral. -Depression otherwise specified. -Diabetes mellitus type 2, chronically on insulin. -Chronic restless leg syndrome, improving -Morbid obesity, BMI 53.5. PLAN: Patient to be discharged home today per orthopedics. Current medical condition stable and appropriate for discharge. SUPERVISOR PAPER TESTING statement: Patient was seen and examined by nurse practitioner Martha Casper and all elements of the case discussed with attending Dr. Moran
[2016-10-21 11:36] LABS: Glucose,Whole Blood 241 mg/dL (75-99)
[2016-10-21] MEDS: INSULIN GLARGINE 100 UNIT/ML 10 ML VIAL SQ SCH (12:45)
--- NOTE | 2016-10-23 09:01 | PN ---
PROGRESS NOTE DATE OF SERVICE: 10/21/2016 ATTENDING NOTE: This patient was seen and examined by me. I reviewed and discussed this with my nurse practitioner, Ms. Casper. The patient's pain is better controlled. Tolerating a diet. No chest pain or short of breath. Did work with physical therapy. EXAMINATION: On examination, LUNGS: Fair air entry. CARDIOVASCULAR: First and second sounds are normal. ASSESSMENT: Right total knee arthroplasty. PLAN: Patient is doing well. If discharged should follow with the family doctor. Care was discussed with the patient. MMODL / IJN: [id number] /
--- NOTE | 2016-10-23 09:01 | PN ---
PROGRESS NOTE DATE OF SERVICE: 10/21/2016 ATTENDING NOTE: This patient was seen and examined by me. I reviewed the note of my nurse practitioner, Ms. Casper. I saw this patient yesterday on 10/21/16. Pain is better controlled. Tolerating a diet. Overall feels better. EXAMINATION: LUNGS: Distant breath sounds. CARDIOVASCULAR: First and second sounds are normal. ASSESSMENT: 1. Right total knee arthroplasty. 2. Nausea side effect of narcotic medications, improving. PLAN: Care was discussed with the patient. Questions were answered. MMODL / IJN: [id number] /
== END 2016-10-21 13:55 | disposition home health service (06) | DRG 470 ==
LOC: 2ORMAIN 10-18 06:27 → 3SUR 10-18 09:49
PROVIDERS: ADMIT Family Medicine; ATTEND Orthopaedic Surgery
PROC: 0SRC0J9 Replacement of Right Knee Joint with Synthetic Substitute, Cemented, Open Approach (ICD-10-PCS; principal; 2016-10-18 08:00)
DX: M17.11 Unilateral primary osteoarthritis, right knee (principal); Z68.43 Body mass index [BMI] 50.0-59.9, adult; F32.9 Major depressive disorder, single episode, unspecified; E11.9 Type 2 diabetes mellitus without complications; J45.909 Unspecified asthma, uncomplicated; E03.9 Hypothyroidism, unspecified; M19.90 Unspecified osteoarthritis, unspecified site; M25.761 Osteophyte, right knee; S86.119A Strain of other muscle(s) and tendon(s) of posterior muscle group at lower leg level, unspecified leg, initial encounter; G25.81 Restless legs syndrome; T40.605A Adverse effect of unspecified narcotics, initial encounter; R11.0 Nausea; Z98.41 Cataract extraction status, right eye; Z96.1 Presence of intraocular lens; Z98.42 Cataract extraction status, left eye; Z87.19 Personal history of other diseases of the digestive system; Z90.49 Acquired absence of other specified parts of digestive tract; Z98.84 Bariatric surgery status; Z79.4 Long term (current) use of insulin; Z79.01 Long term (current) use of anticoagulants; Z79.899 Other long term (current) drug therapy; Z80.9 Family history of malignant neoplasm, unspecified; Z91.048 Other nonmedicinal substance allergy status
CPT/HCPCS: 85025; 85610; 85730; 88300

== ENCOUNTER → 2016-10-13 | Outpatient (CLI) | payer MEDICARE | END | disposition home or self-care (01) | LOC: LABPAT 16:35 | PROVIDERS: ATTEND Orthopaedic Surgery | DX: Z01.812 Encounter for preprocedural laboratory examination (principal) | CPT/HCPCS: 87070 ==

== ENCOUNTER 2016-10-22 12:57 | Inpatient (IN) | payer MEDICARE ==
--- NOTE | 2016-10-22 13:47 | ED ---
General Adult HPI - General Chief complaint: Shortness of Breath Stated complaint: Low O2-Post Surgical 10/18/16 Time Seen by Provider: 10/22/16 13:00 Source: patient, family, RN notes reviewed Mode of arrival: wheelchair Limitations: no limitations - History of Present Illness Initial comments: This is a 61-year-old female presents emergency department because the visiting nurse told her that her lips are blue in her pulse ox is in the high 70s. Patient states she was asymptomatic at the time family did not notice her being any breast her distress and he did not notice her lips turning blue. Patient states she had no chest pain palpitations difficulty breathing shortness of breath patient had no recent fever chills or cough. Patient states she did just have surgery this previous week for right knee replacement. Patient states she has no lightheadedness or dizziness. Patient denies any headache patient denies numbness weakness. Patient denies any symptoms even at the time that the nurses stating her lips were blue. Patient continues to be asymptomatic - Related Data Home Medications Medication Instructions Recorded Confirmed Vilazodone HCl [Viibryd] 40 mg PO DAILY 09/28/13 10/22/16 metFORMIN HCL 1,000 mg PO BID 09/28/13 10/22/16 rOPINIRole HCL [Requip] 1 mg PO QID 09/28/13 10/22/16 Albuterol Inhaler [Ventolin Hfa 1 - 2 puff INHALATION RT-Q6H PRN 10/14/16 Inhaler] Canagliflozin [Invokana] 300 mg PO DAILY 10/14/16 10/22/16 Gabapentin [Neurontin] 300 mg PO BID 10/14/16 10/22/16 Insulin Glargine,Hum.rec.anlog 35 units SQ DAILY@1200 10/14/16 10/22/16 [Jim Solostdeni] Liraglutide [Victoza 2-John] 1.2 mg SQ DAILY@1200 10/14/16 10/22/16 sitaGLIPtin [Januvia] 100 mg PO DAILY 10/14/16 10/22/16 Levothyroxine Sodium [Synthroid] 88 mcg PO DAILY 10/18/16 10/22/16 HYDROcodone/APAP 7.5-325MG [[place] 1 - 2 tab PO Q6HR PRN 10/22/16 10/22/16 7.5] Previous Rx's Medication Instructions Recorded Rivaroxaban [Xarelto] 10 mg PO DAILY #12 tab 10/18/16 Docusate [Colace] 100 mg PO DAILY #30 capsule 10/21/16 Famotidine [Pepcid] 20 mg PO DAILY #30 tablet 10/21/16 hydrOXYzine PAMOATE [Vistaril] 25 mg PO Q6HR #40 capsule 10/21/16 traMADol HCl [Ultram] 50 mg PO Q6H PRN #40 tab 10/21/16 Allergies Allergy/AdvReac Type Severity Reaction Status Date / Time adhesive tape Allergy Rash/Hives Verified 10/22/16 13:07 Review of Systems ROS Statement: Those systems with pertinent positive or pertinent negative responses have been documented in the HPI. ROS Other: All systems not noted in ROS Statement are negative. Past Medical History Past Medical History: Asthma, Diabetes Mellitus, Osteoarthritis (OA) History of Any Multi-Drug Resistant Organisms: None Reported Past Surgical History: Bariatric Surgery, Section, Cholecystectomy, Hernia Repair, Joint Replacement, Orthopedic Surgery Additional Past Surgical History / Comment(s): ABDOMINALPLASTY , SKIN REMOVED FROM UPPER LEGS,GASTRIC SLEEVE, STOMACH STAPLING, TOTAL LEFT KNEE, CATARACT SURGERY WITH IMPLANTS-BILATERAL Past Anesthesia/Blood Transfusion Reactions: No Reported Reaction Past Psychological History: Depression Smoking Status: Never smoker Past Alcohol Use History: Rare Past Drug Use History: None Reported - Past Family History Sister(s) Family Medical History: Deep Vein Thrombosis (DVT) General Exam - General Exam Comments Initial Comments: GENERAL: Patient is well-developed and well-nourished. Patient is nontoxic and well- hydrated and is in no acute distress. ENT: Neck is soft and supple. No significant lymphadenopathy is noted. Oropharynx is clear. Moist mucous membranes. Neck has full range of motion without eliciting any pain. There is no thyroid enlargement and no masses were felt. EYES: The sclera were anicteric and conjunctiva were pink and moist. Extraocular movements were intact and pupils were equal round and reactive to light. Eyelids were unremarkable. PULMONARY: Unlabored respirations. Good breath sounds bilaterally. No audible rales rhonchi or wheezing was noted. CARDIOVASCULAR: There is a regular rate and rhythm without any murmurs gallops or rubs. Femoral pulses are equal bilaterally ABDOMEN: Soft and nontender with normal bowel sounds. No palpable organomegaly was noted. There is no palpable pulsatile mass. SKIN: Skin is clear with no lesions or rashes and otherwise unremarkable. NEUROLOGIC: Patient is alert and oriented x3. Cranial nerves II through XII are grossly intact. Motor and sensory are also intact. Normal speech, volume and content. Symmetrical smile. Cerebellar exam grossly intact. MUSCULOSKELETAL: Normal extremities with adequate strength and full range of motion. No lower extremity swelling or edema. No calf tenderness. LYMPHATICS: No significant lymphadenopathy is noted PSYCHIATRIC: Normal psychiatric evaluation. Normal interpersonal interactions appears functionally intact in deals appropriately with others. No signs of depression. No signs of anxiety. No delusions. No hallucinations. Limitations: no limitations Course Vital Signs 10/22/16 10/22/16 10/22/16 12:58 13:58 14:00 Temperature 98.8 F 99.3 F Pulse Rate 101 H 95 Respiratory 20 19 20 Rate Blood Pressure 120/80 121/60 O2 Sat by Pulse 88 L 95 Oximetry 10/22/16 10/22/16 10/22/16 14:42 15:36 16:01 Temperature 98.2 F Pulse Rate 86 79 79 Respiratory 18 18 18 Rate Blood Pressure 134/61 121/61 121/57 O2 Sat by Pulse 97 97 97 Oximetry Medical Decision Making - Medical Decision Making EKG shows a sinus rhythm with occasional PVCs at 100 bpm NH interval 234 QRS is 92 QT interval 354 QTC is 456 per patient's EKG shows no ST segment elevation or depression or T wave abnormalities are noted. Chest x-ray shows no acute abnormality. CT scan shows possible pulmonary was. I spoke with the nurse practitioner for Dr. Seaman the patient will be treated with Xarelto the current dose of 10 mg daily will be increased to 15 mg twice a day. Patient had elevated also cardiology consult appeared patient ultrasound on bilateral extremity. Hematology be consult in because the family's history of multiple clots. - Lab Data Result diagrams: 10/22/16 13:54 10/22/16 13:54 Lab Results 10/22/16 10/22/16 10/22/16 Range/Units 13:39 13:54 13:54 WBC 9.0 (3.8-10.6) k/uL RBC 4.12 (3.80-5.40) m/uL Hgb 11.7 (11.4-16.0) gm/dL Hct 36.0 (34.0-46.0) % MCV 87.3 (80.0-100.0) fL MCH 28.5 (25.0-35.0) pg MCHC 32.6 (31.0-37.0) g/dL RDW 14.9 (11.5-15.5) % Plt Count 239 (150-450) k/uL Neutrophils % 67 % Lymphocytes % 21 % Monocytes % 7 % Eosinophils % 2 % Basophils % 1 % Neutrophils # 6.1 (1.3-7.7) k/uL Lymphocytes # 1.9 (1.0-4.8) k/uL Monocytes # 0.7 (0-1.0) k/uL Eosinophils # 0.2 (0-0.7) k/uL Basophils # 0.1 (0-0.2) k/uL PT (9.0-12.0) sec INR (<1.2) APTT (22.0-30.0) sec Sample Site lrad ABG pH 7.44 (7.35-7.45) ABG pCO2 36 (35-45) mmHg ABG pO2 46 L (83-108) mmHg ABG HCO3 24 (21-25) mmol/L ABG Total CO2 26 H (19-24) mmol/L ABG O2 Saturation 83.0 L (94-97) % ABG Base Excess 0.7 mmol/L FiO2 21 % Sodium (137-145) mmol/L Potassium (3.5-5.1) mmol/L Chloride (98-107) mmol/L Carbon Dioxide (22-30) mmol/L Anion Gap mmol/L BUN (7-17) mg/dL Creatinine (0.52-1.04) mg/dL Est GFR (MDRD) Af Amer (>60 ml/min/1.73 sqM) Est GFR (MDRD) Non-Af (>60 ml/min/1.73 sqM) Glucose (74-99) mg/dL POC Glucose (mg/dL) (75-99) mg/dL POC Glu Millinery Salesperson ID Calcium (8.4-10.2) mg/dL Total Bilirubin (0.2-1.3) mg/dL AST (14-36) U/L ALT (9-52) U/L Alkaline Phosphatase (38-126) U/L Total Creatine Kinase 114 (30-135) U/L CK-MB (CK-2) 0.7 (0.0-2.4) ng/mL CK-MB (CK-2) Rel Index 0.6 Troponin I 0.162 H* (0.000-0.034) ng/mL NT-Pro-B Natriuret Pep pg/mL Total Protein (6.3-8.2) g/dL Albumin (3.5-5.0) g/dL 10/22/16 10/22/16 10/22/16 Range/Units 13:54 13:54 13:54 WBC (3.8-10.6) k/uL RBC (3.80-5.40) m/uL Hgb (11.4-16.0) gm/dL Hct (34.0-46.0) % MCV (80.0-100.0) fL MCH (25.0-35.0) pg MCHC (31.0-37.0) g/dL RDW (11.5-15.5) % Plt Count (150-450) k/uL Neutrophils % % Lymphocytes % % Monocytes % % Eosinophils % % Basophils % % Neutrophils # (1.3-7.7) k/uL Lymphocytes # (1.0-4.8) k/uL Monocytes # (0-1.0) k/uL Eosinophils # (0-0.7) k/uL Basophils # (0-0.2) k/uL PT 12.4 H (9.0-12.0) sec INR 1.2 H (<1.2) APTT 30.3 H (22.0-30.0) sec Sample Site ABG pH (7.35-7.45) ABG pCO2 (35-45) mmHg ABG pO2 (83-108) mmHg ABG HCO3 (21-25) mmol/L ABG Total CO2 (19-24) mmol/L ABG O2 Saturation (94-97) % ABG Base Excess mmol/L FiO2 % Sodium 136 L (137-145) mmol/L Potassium 4.3 (3.5-5.1) mmol/L Chloride 99 (98-107) mmol/L Carbon Dioxide 27 (22-30) mmol/L Anion Gap 10 mmol/L BUN 31 H (7-17) mg/dL Creatinine 0.97 (0.52-1.04) mg/dL Est GFR (MDRD) Af Amer >60 (>60 ml/min/1.73 sqM) Est GFR (MDRD) Non-Af 58 (>60 ml/min/1.73 sqM) Glucose 203 H (74-99) mg/dL POC Glucose (mg/dL) (75-99) mg/dL POC Glu Millinery Salesperson ID Calcium 8.9 (8.4-10.2) mg/dL Total Bilirubin 0.5 (0.2-1.3) mg/dL AST 448 H (14-36) U/L ALT 325 H (9-52) U/L Alkaline Phosphatase 72 (38-126) U/L Total Creatine Kinase (30-135) U/L CK-MB (CK-2) (0.0-2.4) ng/mL CK-MB (CK-2) Rel Index Troponin I (0.000-0.034) ng/mL NT-Pro-B Natriuret Pep 5330 pg/mL Total Protein 6.1 L (6.3-8.2) g/dL Albumin 3.3 L (3.5-5.0) g/dL 10/22/16 Range/Units 14:39 WBC (3.8-10.6) k/uL RBC (3.80-5.40) m/uL Hgb (11.4-16.0) gm/dL Hct (34.0-46.0) % MCV (80.0-100.0) fL MCH (25.0-35.0) pg MCHC (31.0-37.0) g/dL RDW (11.5-15.5) % Plt Count (150-450) k/uL Neutrophils % % Lymphocytes % % Monocytes % % Eosinophils % % Basophils % % Neutrophils # (1.3-7.7) k/uL Lymphocytes # (1.0-4.8) k/uL Monocytes # (0-1.0) k/uL Eosinophils # (0-0.7) k/uL Basophils # (0-0.2) k/uL PT (9.0-12.0) sec INR (<1.2) APTT (22.0-30.0) sec Sample Site ABG pH (7.35-7.45) ABG pCO2 (35-45) mmHg ABG pO2 (83-108) mmHg ABG HCO3 (21-25) mmol/L ABG Total CO2 (19-24) mmol/L ABG O2 Saturation (94-97) % ABG Base Excess mmol/L FiO2 % Sodium (137-145) mmol/L Potassium (3.5-5.1) mmol/L Chloride (98-107) mmol/L Carbon Dioxide (22-30) mmol/L Anion Gap mmol/L BUN (7-17) mg/dL Creatinine (0.52-1.04) mg/dL Est GFR (MDRD) Af Amer (>60 ml/min/1.73 sqM) Est GFR (MDRD) Non-Af (>60 ml/min/1.73 sqM) Glucose (74-99) mg/dL POC Glucose (mg/dL) 176 H (75-99) mg/dL POC Glu Millinery Salesperson ID Carlene Kimball Calcium (8.4-10.2) mg/dL Total Bilirubin (0.2-1.3) mg/dL AST (14-36) U/L ALT (9-52) U/L Alkaline Phosphatase (38-126) U/L Total Creatine Kinase (30-135) U/L CK-MB (CK-2) (0.0-2.4) ng/mL CK-MB (CK-2) Rel Index Troponin I (0.000-0.034) ng/mL NT-Pro-B Natriuret Pep pg/mL Total Protein (6.3-8.2) g/dL Albumin (3.5-5.0) g/dL Critical Care Time Critical Care Time: Yes Total Critical Care Time: 35 Disposition Clinical Impression: Pulmonary embolism, Elevated troponin Disposition: ADMITTED IP TO THIS HOSP Referrals: Maxim Montilla MD [Primary Care Provider] - 1-2 days Time of Disposition: 16:20
[2016-10-22 13:55] LABS: ABG PCO2 36 mmHg (35-45); ABG PH 7.44 (7.35-7.45); ABG PO2 46 mmHg (83-108)
[2016-10-22 13:56] LABS: ABG Base Excess 0.7 mmol/L; ABG HCO3 24 mmol/L (21-25); ABG TCO2 26 mmol/L (19-24)
[2016-10-22 14:09] LABS: Basophils # (A) 0.1 k/uL (0-0.2); Basophils % (A) 1 %; CH 29.4; CHCM 33.8; Eosinophils # (A) 0.2 k/uL (0-0.7); Eosinophils % (A) 2 %; HDW 2.99; HGB 11.7 gm/dL (11.4-16.0); Luc # (Auto) 0.18; Luc % (Auto) 2; Lymphocytes # (A) 1.9 k/uL (1.0-4.8); Lymphocytes % (A) 21 %; MCH 28.5 pg (25.0-35.0); MCHC 32.6 g/dL (31.0-37.0); MCV 87.3 fL (80.0-100.0); Mean Platelet Volume 7.9; Monocytes # (A) 0.7 k/uL (0-1.0); Monocytes % (A) 7 %; Neutrophils # (A) 6.1 k/uL (1.3-7.7); Neutrophils % (A) 67 %; RBC 4.12 m/uL (3.80-5.40); RDW 14.9 % (11.5-15.5); WBC (Perox) 9.22
--- NOTE | 2016-10-22 14:15 | XR ---
EXAMINATION TYPE: XR chest 2V DATE OF EXAM: 10/22/2016 COMPARISON: Prior chest x-ray 04/17/2014 HISTORY: Difficulty breathing TECHNIQUE: Frontal and lateral views of the chest are obtained. FINDINGS: Patient is rotated. Heart is enlarged and stable. Mediastinum appears widened possibly due to rotation. There are overlying cardiac leads. No airspace disease, pneumothorax, or pleural effusi on evident. IMPRESSION: No acute cardiopulmonary process. Stable exam, cardiomegaly, rotated, follow-up as indic ated
[2016-10-22 14:19] LABS: ALT 325 U/L (9-52); AST 448 U/L (14-36); Alkaline Phosphatase 72 U/L (38-126); Anion Gap 10 mmol/L; Blood Urea Nitrogen 31 mg/dL (7-17); Calcium 8.9 mg/dL (8.4-10.2); Carbon Dioxide 27 mmol/L (22-30); Chloride 99 mmol/L (98-107); Glucose 203 mg/dL (74-99); Non-African American GFR(MDRD) 58 (>60 ml/min/1.73 sqM); Potassium 4.3 mmol/L (3.5-5.1); Sodium 136 mmol/L (137-145); Total Bilirubin 0.5 mg/dL (0.2-1.3); Total Protein 6.1 g/dL (6.3-8.2)
[2016-10-22 14:25] LABS: INR 1.2 (<1.2); Partial Thromboplastin Time 30.3 sec (22.0-30.0); Prothrombin Time 12.4 sec (9.0-12.0)
[2016-10-22 14:43] LABS: Creatine Kinase MB 0.7 ng/mL (0.0-2.4)
[2016-10-22 14:43] LABS: Glucose,Whole Blood 176 mg/dL (75-99)
[2016-10-22] MEDS ORDERED: HYDROmorphone 1 MG/ML 1 ML SYRINGE IVP STA ×2 (14:44→20:00)
[2016-10-22] MEDS ORDERED: RX INFO: IV CONTRAST WAS GIVEN 1 EACH MISC MISCELLANE PRN (14:45)
[2016-10-22 14:48] LABS: Troponin I 0.162 ng/mL (0.000-0.034)
--- NOTE | 2016-10-22 15:46 | CT ---
EXAMINATION TYPE: CT chest angio for PE DATE OF EXAM: 10/22/2016 COMPARISON: NONE HISTORY: Decreased O2 saturation. Post op knee surgery [address] DLP: 526.00 mGycm Automated exposure control for dose reduction was used. CONTRAST: CT Chest for pulmonary embolism performed with with IV Contrast, patient injected with 80 mL of Visip a[place] 320. FINDINGS: LUNGS: The lungs are remarkable for probable old granulomatous disease, calcified nodule present axia l image 53 right upper lobe. Some minimal subpleural nodularity is present especially posterior later ally in the right upper lobe and left upper lobe, subcentimeter in size. There is no pleural effusio n or pneumothorax seen. The tracheobronchial tree is patent. MEDIASTINUM: There is somewhat limited opacification of the pulmonary arteries, segmental branches, i n the right lower lobe there is some decreased attenuation noted within a segmental pulmonary artery on image 74 which is appearing somewhat tubular as on axial image 49. There are no greater than 1 cm hilar or mediastinal lymph nodes. Borderline pretracheal node shows low attenuation on axial image 3 4. Some nonenlarged prevascular nodes present. 1 coronary artery calcifications present. No pericardi al effusion is seen. AORTA: No additional significant abnormality is seen. OTHER: Distal esophagus is thickened. Patient is status post gastric sleeve. IMPRESSION: Cannot exclude pulmonary embolism as described within the right lung. Old granulomatous disease. Post op changes. Abnormal thickening of the distal esophagus of questionable etiology.
[2016-10-22] MEDS ORDERED: HYDROmorphone 1 MG/ML 1 ML SYRINGE IM STA (15:55)
[2016-10-22] MEDS ORDERED: SODIUM CHLORIDE 0.9% 1,000 ML IV ONE (16:21)
[2016-10-22] MEDS ORDERED: HYDROcodone/APAP 7.5-325MG 1 EACH TAB PO PRN (17:32)
--- NOTE | 2016-10-22 17:35 | US ---
EXAMINATION TYPE: US venous doppler duplex LE DATE OF EXAM: 10/22/2016 5:01 PM COMPARISON: US CLINICAL HISTORY: Pain. right leg pain post total knee, possible PE per CT SIDE PERFORMED: Bilateral TECHNIQUE: The lower extremity deep venous system is examined utilizing real time linear array sonog crystal with graded compression, doppler sonography and color-flow sonography. VESSELS IMAGED: External Iliac Vein (EIV) Common Femoral Vein Deep Femoral Vein Greater Saphenous Vein * Femoral Vein Popliteal Vein Proximal Calf Veins (* superficial vessels) Morbidly obese patient Right Leg: Negative for DVT Left Leg: Negative for DVT IMPRESSION: Grayscale, color doppler, spectral doppler imaging performed of the deep veins of the lo wer extremities. There is normal flow, compressibility, vascular waveforms. No evident deep venous thrombosis at or above the knees.
[2016-10-22 18:12] VITALS: BMI 53.5
[2016-10-22] MEDS: RIVAROXABAN 15 MG TAB PO SCH (20:22)
[2016-10-22] MEDS: hydrOXYzine PAMOATE 25 MG CAP PO SCH ×2 (20:22→23:39)
[2016-10-22] MEDS: GABAPENTIN 300 MG CAP PO SCH (20:24)
[2016-10-22 21:09] LABS: Creatine Kinase MB 0.6 ng/mL (0.0-2.4)
[2016-10-22 21:19] LABS: Troponin I 0.088 ng/mL (0.000-0.034)
[2016-10-22 21:28] LABS: Glucose,Whole Blood 153 mg/dL (75-99)
[2016-10-22] MEDS: traMADol 50 MG TAB PO PRN (23:38)
[2016-10-23 02:47] LABS: Creatine Kinase MB 0.5 ng/mL (0.0-2.4)
[2016-10-23 02:53] LABS: Troponin I 0.064 ng/mL (0.000-0.034)
[2016-10-23] MEDS: traMADol 50 MG TAB PO PRN ×5 (05:07→23:26)
[2016-10-23] MEDS: hydrOXYzine PAMOATE 25 MG CAP PO SCH ×3 (05:07→17:28)
[2016-10-23 06:28] LABS: ALT 277 U/L (9-52); AST 219 U/L (14-36); Alkaline Phosphatase 65 U/L (38-126); Anion Gap 8 mmol/L; Blood Urea Nitrogen 24 mg/dL (7-17); Calcium 8.8 mg/dL (8.4-10.2); Carbon Dioxide 28 mmol/L (22-30); Chloride 103 mmol/L (98-107); Glucose 104 mg/dL (74-99); Non-African American GFR(MDRD) >60 (>60 ml/min/1.73 sqM); Potassium 4.1 mmol/L (3.5-5.1); Sodium 139 mmol/L (137-145); Total Bilirubin 0.5 mg/dL (0.2-1.3); Total Protein 5.6 g/dL (6.3-8.2)
[2016-10-23] MEDS: LEVOTHYROXINE 88 MCG TAB PO SCH (06:31)
[2016-10-23] MEDS: RIVAROXABAN 15 MG TAB PO SCH ×2 (06:31→17:28)
[2016-10-23 06:55] LABS: Glucose,Whole Blood 126 mg/dL (75-99)
[2016-10-23] MEDS: FAMOTIDINE 20 MG TAB PO SCH (07:51)
[2016-10-23] MEDS: GABAPENTIN 300 MG CAP PO SCH ×2 (07:51→21:23)
[2016-10-23] MEDS: LINAGLIPTIN 5 MG TABLET PO SCH (07:51)
[2016-10-23] MEDS: DOCUSATE 100 MG CAP PO SCH (07:51)
[2016-10-23] MEDS ORDERED: NON-FORMULARY DRUG (Canagliflozin [Invokana] 300 MG) PO SCH (09:00)
[2016-10-23] MEDS: HYDROcodone/APAP 7.5-325MG 1 EACH TAB PO PRN ×3 (09:02→21:21)
--- NOTE | 2016-10-23 09:20 | P.CRDCN ---
History of Present Illness Consult date: 10/23/16 Reason for Consult (text): Elevated troponin, pulmonary embolism, shortness of breath History of present illness: 61-year-old lady with history of diabetes who presented to Hospital having been sent by a visiting nurse. Patient had a recent knee replacement went home a day later the nurse found that she was somewhat short of breath at home due to this she was found to be hypoxic sent to the emergency room where she had a computed tomography scan of the chest where pulmonary embolism could not be ruled out. She is being treated as pulmonary embolism given the clinical context symptomatology and the computed tomography scan findings. She is currently on xarelto at pulmonary embolism dose. And is feeling better. EKG shows sinus tachycardia with nonspecific ST-T wave changes. Review of Systems Constitutional: Denies chills. Denies fever. Eyes: Denies blurred vision. Denies pain. Ears, nose, mouth and throat: Denies headache. Denies sore throat. Cardiovascular: Denies chest pain. has shortness of breath. Respiratory: Denies cough. Gastrointestinal: Denies abdominal pain. Denies diarrhea. Denies nausea. Denies vomiting. Musculoskeletal: Denies myalgias. Joint pain Integumentary: Denies pruritus. Denies rash. Neurological: Denies numbness. Denies weakness. Psychiatric: Denies anxiety. Denies depression. Endocrine: Denies fatigue. Denies weight change. Genitourinary: Denies burning, hematuria, frequency of urination. Hematological: No anemia or excess bleeding. Past Medical History Past Medical History: Asthma, Diabetes Mellitus, Osteoarthritis (OA) History of Any Multi-Drug Resistant Organisms: None Reported Past Surgical History: Bariatric Surgery, Section, Cholecystectomy, Hernia Repair, Joint Replacement, Orthopedic Surgery Additional Past Surgical History / Comment(s): ABDOMINALPLASTY , SKIN REMOVED FROM UPPER LEGS,GASTRIC SLEEVE, STOMACH STAPLING, TOTAL LEFT KNEE, CATARACT SURGERY WITH IMPLANTS-BILATERAL Past Anesthesia/Blood Transfusion Reactions: No Reported Reaction Past Psychological History: Depression Smoking Status: Never smoker Past Alcohol Use History: Rare Past Drug Use History: None Reported - Past Family History Sister(s) Family Medical History: Deep Vein Thrombosis (DVT) Medications and Allergies Home Medications Medication Instructions Recorded Confirmed Type Vilazodone HCl [Viibryd] 40 mg PO DAILY 09/28/13 10/22/16 History metFORMIN HCL 1,000 mg PO BID 09/28/13 10/22/16 History rOPINIRole HCL [Requip] 1 mg PO QID 09/28/13 10/22/16 History Albuterol Inhaler [Ventolin Hfa 1 - 2 puff INHALATION RT-Q6H PRN 10/14/16 History Inhaler] Canagliflozin [Invokana] 300 mg PO DAILY 10/14/16 10/22/16 History Gabapentin [Neurontin] 300 mg PO BID 10/14/16 10/22/16 History Insulin Glargine,Hum.rec.anlog 35 units SQ DAILY@1200 10/14/16 10/22/16 History [[place] Solostar] Liraglutide [Victoza 2-John] 1.2 mg SQ DAILY@1200 10/14/16 10/22/16 History sitaGLIPtin [Januvia] 100 mg PO DAILY 10/14/16 10/22/16 History Levothyroxine Sodium [Synthroid] 88 mcg PO DAILY 10/18/16 10/22/16 History Rivaroxaban [Xarelto] 10 mg PO DAILY #12 tab 10/18/16 10/22/16 Rx Docusate [Colace] 100 mg PO DAILY #30 capsule 10/21/16 10/22/16 Rx Famotidine [Pepcid] 20 mg PO DAILY #30 tablet 10/21/16 10/22/16 Rx hydrOXYzine PAMOATE [Vistaril] 25 mg PO Q6HR #40 capsule 10/21/16 10/22/16 Rx traMADol HCl [Ultram] 50 mg PO Q6H PRN #40 tab 10/21/16 10/22/16 Rx HYDROcodone/APAP 7.5-325MG [[place] 1 - 2 tab PO Q6HR PRN 10/22/16 10/22/16 History 7.5] Allergies Allergy/AdvReac Type Severity Reaction Status Date / Time adhesive tape Allergy Rash/Hives Verified 10/22/16 13:07 Physical Exam Vitals: Vital Signs Temp Pulse Pulse Pulse Resp BP BP 10/23/16 08:16 10/23/16 08:00 97.2 F L 83 16 125/64 10/23/16 04:00 97.3 F L 81 20 124/68 10/23/16 00:00 97.0 F L 86 20 112/71 10/22/16 20:00 99.1 F 85 18 132/65 10/22/16 18:30 97.2 F L 88 17 10/22/16 18:05 98.4 F 70 18 134/64 10/22/16 17:07 98.0 F 70 18 138/64 10/22/16 16:01 79 18 121/57 10/22/16 15:36 79 18 121/61 10/22/16 14:42 98.2 F 86 18 134/61 10/22/16 14:00 20 10/22/16 13:58 99.3 F 95 19 121/60 10/22/16 12:58 98.8 F 101 H 20 120/80 BP Pulse Ox 10/23/16 08:16 98 10/23/16 08:00 98 10/23/16 04:00 93 L 10/23/16 00:00 97 10/22/16 20:00 97 10/22/16 18:30 123/67 97 10/22/16 18:05 97 10/22/16 17:07 97 10/22/16 16:01 97 10/22/16 15:36 97 10/22/16 14:42 97 10/22/16 14:00 10/22/16 13:58 95 10/22/16 12:58 88 L Intake and Output 10/22/16 10/23/16 10/23/16 22:59 06:59 14:59 Intake Total 180 Balance 180 Intake: Oral 180 Other: # Voids 0 1 Weight 124.284 kg 123.831 kg General: The patient is awake and alert, in no distress, and does not appear acutely ill. Skin: Skin is warm and dry and no rashes or lesions are noted. Eye: Pupils are equal, round and reactive to light, extra-ocular movements are intact; there is normal conjunctiva bilaterally. Ears, nose, mouth and throat: There are moist mucous membranes and no oral lesions. Neck: The neck is supple, there is no tenderness or JVD. Cardiovascular: There is a regular rate and rhythm. No murmur, rub or gallop is appreciated. Respiratory: Lungs are clear to auscultation, respirations are non-labored, breath sounds are equal. Gastrointestinal: Soft, non-distended, non-tender abdomen without masses or organomegaly noted. There is no rebound or guarding present. Bowel sounds are unremarkable. Back: There is no tenderness to palpation in the midline. There is no obvious deformity. Musculoskeletal: Normal ROM, no tenderness, There is no pedal edema. There is no calf tenderness or swelling. Extremities: No edema. Vascular: Femoral pulse is normal. Posterior tibial pulses are normal .Dorsalis pedis is palpable. Neurological: CN II-XII intact. There are no obvious motor or sensory deficits. Speech is normal. Psychiatric: Cooperative, appropriate mood & affect, normal judgment. Results 10/22/16 13:54 10/23/16 05:49 Cardiac Enzymes 10/22/16 10/22/16 10/22/16 Range/Units 13:54 13:54 20:10 AST 448 H (14-36) U/L CK-MB (CK-2) 0.7 0.6 (0.0-2.4) ng/mL Troponin I 0.162 H* 0.088 H* (0.000-0.034) ng/mL 10/23/16 10/23/16 Range/Units 01:24 05:49 AST 219 H (14-36) U/L CK-MB (CK-2) 0.5 (0.0-2.4) ng/mL Troponin I 0.064 H* (0.000-0.034) ng/mL Coagulation 10/22/16 Range/Units 13:54 PT 12.4 H (9.0-12.0) sec APTT 30.3 H (22.0-30.0) sec CBC 10/22/16 Range/Units 13:54 WBC 9.0 (3.8-10.6) k/uL RBC 4.12 (3.80-5.40) m/uL Hgb 11.7 (11.4-16.0) gm/dL Hct 36.0 (34.0-46.0) % Plt Count 239 (150-450) k/uL Comprehensive Metabolic Panel 10/22/16 10/23/16 Range/Units 13:54 05:49 Sodium 136 L 139 (137-145) mmol/L Potassium 4.3 4.1 (3.5-5.1) mmol/L Chloride 99 103 (98-107) mmol/L Carbon Dioxide 27 28 (22-30) mmol/L BUN 31 H 24 H (7-17) mg/dL Creatinine 0.97 0.80 (0.52-1.04) mg/dL Glucose 203 H 104 H (74-99) mg/dL Calcium 8.9 8.8 (8.4-10.2) mg/dL AST 448 H 219 H (14-36) U/L ALT 325 H 277 H (9-52) U/L Alkaline Phosphatase 72 65 (38-126) U/L Total Protein 6.1 L 5.6 L (6.3-8.2) g/dL Albumin 3.3 L 2.8 L (3.5-5.0) g/dL Current Medications Generic Name Dose Route Start Last Admin Trade Name Freq PRN Reason Stop Dose Admin Hydrocodone Bitart/Acetaminophen 1 each 10/23/16 08:35 10/23/16 09:02 [place] 7.5-325 PO 1 each Q6H PRN Administration Pain Docusate Sodium 100 mg 10/23/16 09:00 10/23/16 07:51 Colace PO 100 mg DAILY JENNIFER Administration Famotidine 20 mg 10/23/16 09:00 10/23/16 07:51 Pepcid PO 20 mg DAILY JENNIFER Administration Gabapentin 300 mg 10/22/16 21:00 10/23/16 07:51 Neurontin PO 300 mg BID JENNIFER Administration Hydroxyzine Pamoate 25 mg 10/22/16 18:00 10/23/16 05:07 Vistaril PO 25 mg Q6HR JENNIFER Administration Insulin Glargine 35 unit 10/23/16 12:00 Lantus SQ DAILY@1200 JENNIFER Levothyroxine Sodium 88 mcg 10/23/16 06:30 10/23/16 06:31 Synthroid PO 88 mcg DAILY@0630 JENNIFER Administration Linagliptin 5 mg 10/23/16 09:00 10/23/16 07:51 Tradjenta PO 5 mg DAILY JENNIFER Administration Miscellaneous Information 1 each 10/22/16 14:45 Rx Info: Iv Contrast Was Given MISCELLANE 10/24/16 14:45 DAILY PRN Per Protocol Non-Formulary Medication 300 mg 10/23/16 09:00 Canagliflozin [Invokana] PO DAILY JENNIFER Non-Formulary Medication 40 mg 10/23/16 09:00 Vilazodone Hcl [Viibryd] PO DAILY JENNIFER Rivaroxaban 15 mg 10/22/16 17:30 10/23/16 06:31 Xarelto PO 15 mg BID-W/MEALS JENNIFER Administration Ropinirole HCl 1 mg 10/22/16 18:00 10/23/16 07:51 Requip PO 1 mg QID JENNIFER Administration Tramadol HCl 50 mg 10/22/16 17:32 10/23/16 05:07 Ultram PO 50 mg Q6H PRN Administration Pain Intake and Output 10/22/16 10/23/16 10/23/16 22:59 06:59 14:59 Intake Total 180 Balance 180 Intake: Oral 180 Other: # Voids 0 1 Weight 124.284 kg 123.831 kg 10/22/16 13:54 10/23/16 05:49 EKG Interpretations (text) Normal sinus rhythm Assessment and Plan Plan: Acute pulmonary embolism Status post knee replacement Patient is on anticoagulant she is stable to be discharged home later today. If she is still here tomorrow we can get an echocardiogram if not we can get this done as outpatient
--- NOTE | 2016-10-23 09:59 | P.CONS ---
History of Present Illness - Reason for Consult Consult date: 10/23/16 Pulmonary embolus. Family history of clots - History of Present Illness The patient is a 59-year-old lady, who was recently admitted to the hospital for right knee replacement. She was discharged on 10/18/16 on Xarelto 10 mg, which is the standard prophylactic dose post on to placement surgery. According to the patient, her visiting nurse noted that the patient appeared to be blue around the lips. She checked her pulse ox which was found to be low, in the 70 range. The patient herself cannot recall feeling any specific chest pain or shortness of breath. She was sent in to the emergency room, where she had a CTA of the chest. This indicated a possible pulmonary embolus in the segmental branches on the right side. The finding was not totally definitive for however. Dopplers of the lower extremity were negative. Based on the clinical presentation, it was felt that the patient be treated as a PE, then she was admitted to further management. The patient states that multiple family members have had clots, including at least 2 sisters, her own daughter, as well as nieces. She she is not aware a more specific information, asked whether these clots were arterial versus venous , or were provoked. Personally, she has never had an arterial or venous thrombosis. She denies any history of malignancy. She has had 1 miscarriage, which was in the first trimester. Review of Systems Constitutional: Reports fatigue Eyes: denies blurred vision, denies pain Ears, nose, mouth and throat: Denies headache, Denies sore throat Cardiovascular: Reports decreased exercise tolerance Respiratory: Reports dyspnea (Questionable) Gastrointestinal: Denies abdominal pain, Denies diarrhea, Denies nausea, Denies vomiting Genitourinary: Denies dysuria, Denies hematuria Menstruation: Reports postmenopausal Musculoskeletal: right: knee pain, knee stiffness Integumentary: Denies pruritus, Denies rash Neurological: Denies numbness, Denies weakness Psychiatric: Denies anxiety, Denies depression Endocrine: Denies fatigue, Denies weight change Hematologic/Lymphatic: Reports as per HPI Past Medical History Past Medical History: Asthma, Diabetes Mellitus, Osteoarthritis (OA) History of Any Multi-Drug Resistant Organisms: None Reported Past Surgical History: Bariatric Surgery, Section, Cholecystectomy, Hernia Repair, Joint Replacement, Orthopedic Surgery Additional Past Surgical History / Comment(s): ABDOMINALPLASTY , SKIN REMOVED FROM UPPER LEGS,GASTRIC SLEEVE, STOMACH STAPLING, TOTAL LEFT KNEE, CATARACT SURGERY WITH IMPLANTS-BILATERAL Past Anesthesia/Blood Transfusion Reactions: No Reported Reaction Past Psychological History: Depression Smoking Status: Never smoker Past Alcohol Use History: Rare Past Drug Use History: None Reported - Past Family History Sister(s) Family Medical History: Deep Vein Thrombosis (DVT) Medications and Allergies Home Medications Medication Instructions Recorded Confirmed Type Vilazodone HCl [Viibryd] 40 mg PO DAILY 09/28/13 10/22/16 History metFORMIN HCL 1,000 mg PO BID 09/28/13 10/22/16 History rOPINIRole HCL [Requip] 1 mg PO QID 09/28/13 10/22/16 History Albuterol Inhaler [Ventolin Hfa 1 - 2 puff INHALATION RT-Q6H PRN 10/14/16 History Inhaler] Canagliflozin [Invokana] 300 mg PO DAILY 10/14/16 10/22/16 History Gabapentin [Neurontin] 300 mg PO BID 10/14/16 10/22/16 History Insulin Glargine,Hum.rec.anlog 35 units SQ DAILY@1200 10/14/16 10/22/16 History [[place] Soldianaar] Liraglutide [Victoza 2-John] 1.2 mg SQ DAILY@1200 10/14/16 10/22/16 History sitaGLIPtin [Januvia] 100 mg PO DAILY 10/14/16 10/22/16 History Levothyroxine Sodium [Synthroid] 88 mcg PO DAILY 10/18/16 10/22/16 History Rivaroxaban [Xarelto] 10 mg PO DAILY #12 tab 10/18/16 10/22/16 Rx Docusate [Colace] 100 mg PO DAILY #30 capsule 10/21/16 10/22/16 Rx Famotidine [Pepcid] 20 mg PO DAILY #30 tablet 10/21/16 10/22/16 Rx hydrOXYzine PAMOATE [Vistaril] 25 mg PO Q6HR #40 capsule 10/21/16 10/22/16 Rx traMADol HCl [Ultram] 50 mg PO Q6H PRN #40 tab 10/21/16 10/22/16 Rx HYDROcodone/APAP 7.5-325MG [[place] 1 - 2 tab PO Q6HR PRN 10/22/16 10/22/16 History 7.5] Allergies Allergy/AdvReac Type Severity Reaction Status Date / Time adhesive tape Allergy Rash/Hives Verified 10/22/16 13:07 Physical Exam Vitals: Vital Signs Temp Pulse Pulse Pulse Resp BP BP 10/23/16 08:16 10/23/16 08:00 97.2 F L 83 16 125/64 10/23/16 04:00 97.3 F L 81 20 124/68 10/23/16 00:00 97.0 F L 86 20 112/71 10/22/16 20:00 99.1 F 85 18 132/65 10/22/16 18:30 97.2 F L 88 17 10/22/16 18:05 98.4 F 70 18 134/64 10/22/16 17:07 98.0 F 70 18 138/64 10/22/16 16:01 79 18 121/57 10/22/16 15:36 79 18 121/61 10/22/16 14:42 98.2 F 86 18 134/61 10/22/16 14:00 20 10/22/16 13:58 99.3 F 95 19 121/60 10/22/16 12:58 98.8 F 101 H 20 120/80 BP Pulse Ox 10/23/16 08:16 98 10/23/16 08:00 98 10/23/16 04:00 93 L 10/23/16 00:00 97 10/22/16 20:00 97 10/22/16 18:30 123/67 97 10/22/16 18:05 97 10/22/16 17:07 97 10/22/16 16:01 97 10/22/16 15:36 97 10/22/16 14:42 97 10/22/16 14:00 10/22/16 13:58 95 10/22/16 12:58 88 L Intake and Output 10/22/16 10/23/16 10/23/16 22:59 06:59 14:59 Intake Total 180 Balance 180 Intake: Oral 180 Other: # Voids 0 1 Weight 124.284 kg 123.831 kg - Constitutional General appearance: no acute distress - EENT Eyes: EOMI, PERRLA ENT: hearing grossly normal, normal oropharynx - Neck Neck: no lymphadenopathy Thyroid: bilateral: normal size - Respiratory Respiratory: bilateral: CTA - Cardiovascular Rhythm: regular Heart sounds: normal: S1, S2 - Gastrointestinal General gastrointestinal: normal bowel sounds, soft - Integumentary Integumentary: normal - Neurologic Neurologic: CNII-XII intact - Musculoskeletal Postop changes, right knee area - Psychiatric Psychiatric: A&O x's 3, appropriate affect Results CBC & Chem 7: 10/22/16 13:54 10/23/16 05:49 Labs: Abnormal Lab Results - Last 24 Hours (Table) 10/22/16 10/22/16 10/22/16 Range/Units 13:39 13:54 13:54 PT (9.0-12.0) sec INR (<1.2) APTT (22.0-30.0) sec ABG pO2 46 L (83-108) mmHg ABG Total CO2 26 H (19-24) mmol/L ABG O2 Saturation 83.0 L (94-97) % Sodium 136 L (137-145) mmol/L BUN 31 H (7-17) mg/dL Glucose 203 H (74-99) mg/dL POC Glucose (mg/dL) (75-99) mg/dL AST 448 H (14-36) U/L ALT 325 H (9-52) U/L Troponin I 0.162 H* (0.000-0.034) ng/mL Total Protein 6.1 L (6.3-8.2) g/dL Albumin 3.3 L (3.5-5.0) g/dL 10/22/16 10/22/16 10/22/16 Range/Units 13:54 14:39 20:10 PT 12.4 H (9.0-12.0) sec INR 1.2 H (<1.2) APTT 30.3 H (22.0-30.0) sec ABG pO2 (83-108) mmHg ABG Total CO2 (19-24) mmol/L ABG O2 Saturation (94-97) % Sodium (137-145) mmol/L BUN (7-17) mg/dL Glucose (74-99) mg/dL POC Glucose (mg/dL) 176 H (75-99) mg/dL AST (14-36) U/L ALT (9-52) U/L Troponin I 0.088 H* (0.000-0.034) ng/mL Total Protein (6.3-8.2) g/dL Albumin (3.5-5.0) g/dL 10/22/16 10/23/16 10/23/16 Range/Units 21:08 01:24 05:49 PT (9.0-12.0) sec INR (<1.2) APTT (22.0-30.0) sec ABG pO2 (83-108) mmHg ABG Total CO2 (19-24) mmol/L ABG O2 Saturation (94-97) % Sodium (137-145) mmol/L BUN 24 H (7-17) mg/dL Glucose 104 H (74-99) mg/dL POC Glucose (mg/dL) 153 H (75-99) mg/dL AST 219 H (14-36) U/L ALT 277 H (9-52) U/L Troponin I 0.064 H* (0.000-0.034) ng/mL Total Protein 5.6 L (6.3-8.2) g/dL Albumin 2.8 L (3.5-5.0) g/dL 10/23/16 Range/Units 06:20 PT (9.0-12.0) sec INR (<1.2) APTT (22.0-30.0) sec ABG pO2 (83-108) mmHg ABG Total CO2 (19-24) mmol/L ABG O2 Saturation (94-97) % Sodium (137-145) mmol/L BUN (7-17) mg/dL Glucose (74-99) mg/dL POC Glucose (mg/dL) 126 H (75-99) mg/dL AST (14-36) U/L ALT (9-52) U/L Troponin I (0.000-0.034) ng/mL Total Protein (6.3-8.2) g/dL Albumin (3.5-5.0) g/dL Chest x-ray: report reviewed CT scan - chest: report reviewed Venous US: report reviewed Assessment and Plan (1) Pulmonary embolism Narrative/Plan: The findings on the CT are not totally definitive. However the clinical situation is certainly suspicious, including postop state, documented hypoxia, as well as mild troponin elevation. Therefore it is quite reasonable in this case to treat the patient has an acute pulmonary embolus. This would be considered appropriate event. The patient was on Xarelto previously, but this was a prophylactic dose. Therefore it is appropriate to increase her dose to 15 by mouth twice a day, which is a treatment dose. Per protocol, she'll be switched to 20 mg by mouth daily for 3 weeks. I would recommend at least 6 months of anticoagulation. The patient has an extensive family history as described. Though she does not have any significant history personally, she would like to be tested for hypercoagulable conditions. This will be done in the outpatient setting. The results will most likely not affect her management, but may have implications for her family. The patient is okay to discharge from our standpoint, whenever okay with the admitting service and other consultants. Please follow-up in the office in about 3-4 weeks. Status: Acute
--- NOTE | 2016-10-23 11:06 | HP ---
HISTORY AND PHYSICAL DATE OF ADMISSION: 10/22/2016 PRESENTING COMPLAINT: Hypoxia. HISTORY OF PRESENTING COMPLAINT: This is a 61-year-old patient who was just in the hospital, admitted on 10/18/16 and discharged on 10/21/[address] Soriano. The patient had a right total knee arthroplasty. Patient follows with Dr. Montilla as a family doctor. Chronic stable medical conditions of diabetes, osteoarthritis, depression, restless legs syndrome and hypothyroidism. The patient has a visiting nurse at home. Rechecked the patient's pulse ox, found it to be in 70s and she thought patient may have a bit of blue lips and The patient was not short of breath, no different than her baseline. Did not complain of any swelling of the legs. In fact, patient had an ultrasound when she was in the hospital and was negative for DVT and she was brought in here to the hospital. Denies any fever. Incision is healing well. REVIEW OF SYSTEMS: CONSTITUTIONAL: Tired. HEENT: None. RESPIRATORY: No change from baseline. CARDIOVASCULAR: None. GASTROINTESTINAL: None. GENITOURINARY: None. MUSCULOSKELETAL: Pain in different joints. DERMATOLOGY: Incision healing well. HEMATOLOGIC: None. LYMPHATICS: None. PSYCHIATRY: Depression, controlled NEUROLOGIC: Restless legs syndrome. PAST HISTORY: Diabetes mellitus type 2, osteoarthritis, depression, restless legs syndrome, hypothyroidism. PAST SURGICAL HISTORY: Bariatric surgery, C section, cholecystectomy hernia repair, joint replacement, abdominoplasty, skin removed from left lower leg, gastric sleeve stomach stapling, left total knee, cataract surgery with implants, bilateral; right total knee. SOCIAL HISTORY: . Drinks alcohol rarely. No smoking. FAMILY HISTORY: DVT. ALLERGIES: ADHESIVE TAPE. HOME MEDICATIONS: 1. Ultram 50 mg p.o. q.6 p.r.n. 2. Januvia 100 mg p.o. daily. 3. Requip 1 mg p.o. q.i.d. 4. Metformin 1000 mg p.o. b.i.d. 5. Vistaril 25 mg q.6h p.r.n. 6. Viibryd 40 mg p.o. daily. 7. Xarelto 10 mg p.o. daily. 8. Victoza 1.2 mg subcutaneous daily at noon. 9. Synthroid 88 mcg p.o. daily. 10.Lantus 35 units p.o. daily. 11.[place] 7.5, 1 or 2 tablets q.6h p.r.n. 12.Neurontin 300 mg p.o. b.i.d. 13.Pepcid 20 mg p.o. daily. 14.Colace 100 mg daily. 15.Invokana 300 mg p.o. daily. 16.Ventolin 1-2 puffs q.6h p.r.n. EXAMINATION: On examination, vital signs on presentation, temperature 98.8, pulse 101, respiratory rate 20, blood pressure 130/80, pulse ox 88% on room air. GENERAL APPEARANCE: Well built. BMI of 46.5. Sitting up in bed. Not in distress. Comfortable though slightly short of breath. EYES: Pupils equal. Conjunctivae normal. HENT: Oral cavity normal. NECK: JVD unable to assess. Mass not palpable. RESPIRATORY: Effort normal. LUNGS: Slightly decreased breath sounds. CARDIOVASCULAR: First and second sounds normal. No edema. ABDOMEN: Soft, nontender. Liver and spleen not palpable LYMPHATICS: No lymph node palpable in neck or axillae. PSYCHIATRIC: Alert and oriented x3. Mood normal NEUROLOGIC: Pupils appear grossly intact. Pulses grossly intact. EXTREMITIES: Right knee has a dressing. INVESTIGATIONS: White count 9, hemoglobin 11.7, pro time 12.4. Blood gas showed a pH of 7.44, pCO2 46, pCO2 of 26 on room air. Potassium 4.3, BUN 31, creatinine 0.97. Accu-Cheks noted AST 448, ALT 325. Troponin I 0.162, 0.088. EKG, sinus rhythm. Chest x-ray, nothing acute. Chest CTA cannot exclude pulmonary embolism. Doppler ultrasound normal. ASSESSMENT: 1. This is a patient was found to be hypoxic at home. She had a pulse ox in the 70s and here the patient's pulse ox on room air is anywhere from 88-92%. Patient is morbidly obese and patient could have chronic restrictive lung disease. Blood gases show a compensated pH in the setting of a low PO2 and this could well be obesity hypoventilation syndrome. Pulmonary embolism, of course, cannot be ruled out. Though, once again, the fact that she had a Doppler ultrasound while she was inpatient and also had a negative Doppler ultrasound here and patient was on Xarelto. 2. Recent right total knee arthroplasty. 3. Primary osteoarthritis of multiple joints, bilateral. 4. Depression, not otherwise specified. 5. Diabetes mellitus type 2, chronically on insulin. 6. Chronic restless leg syndrome. 7. Morbid obesity, body mass index 46.5. 8. Troponin leak. could be from recent surgery. PLAN: At this point, patient has been put on a therapeutic dose Xarelto. Home medications are being continued. I will order a 2D echocardiogram to look for any wall motion abnormality. Consultation to cardiology, pulmonary and Dr. Soriano will be done. Care was discussed with the patient. Questions were answered. MMODL / IJN: [id number] /
[2016-10-23 11:47] LABS: Glucose,Whole Blood 136 mg/dL (75-99)
--- NOTE | 2016-10-23 12:03 | P.CNPUL ---
History of Present Illness Consult date: 10/23/16 Requesting physician: Ronni Moran Reason for consult: pulmonary embolism Chief complaint: Low oxygen saturation History of present illness: This is a 59-year-old female recently admitted for a right knee replacement, and she was just discharged on 10/18/2016 on Xarelto, as a prophylactic dose post knee replacement. However the patient was followed by the visiting nurse at home, and she was noted to be cyanotic around the lips. Pulse oximetry was quite low in the 70s, hence she recommended that she goes to the ER. The patient herself had no complaints, she had no chest pain, no shortness of breath , no cough, no wheezing. Indeed upon arrival to the ER, a CT angiogram was done , and it was a very poor quality CT of the chest since there wasn't a great opacification of the pulmonary vasculature, but was suggestive of thromboembolic disease in the right lower lobe. Clinically that correlated well , venous Doppler was negative for deep vein thrombosis. Patient was admitted, continued on Xarelto, but the dose was increased to a therapeutic dose of 15 mg twice a day at least for the next 21 days. Patient will be eventually switch to 20 mg daily after 3 weeks. And she will need to be on anticoagulation therapy for at least 6 months. Patient denies any cough no wheezing no shortness of breath and no chest pain. Denies any history of COPD, she does have history of morbid obesity, but no documentation of previous hypoxia. Or previous underlying pulmonary disease. Review of Systems Review of Systems Constitutional: Vague fatigue symptoms. No weight loss. No fever, no chills. Eyes: denies blurred vision, denies pain Ears, nose, mouth and throat: Denies headache, Denies sore throat Cardiovascular: Reports dyspnea on exertion Respiratory: As noted in HPI Gastrointestinal: Denies abdominal pain, Denies diarrhea, Denies nausea, Denies vomiting Genitourinary: No dysuria, no hematuria, no frequency, no urgency. Menstruation: Negative Musculoskeletal: right: knee pain, knee stiffness Integumentary: Denies pruritus, Denies rash Neurological: No headache or blurred vision no dizziness. Psychiatric: Denies anxiety, Denies depression Endocrine: No symptoms to suggest hypothyroidism, but patient is known to have history of diabetes. Hematologic/Lymphatic: No previous history of clotting or bleeding or bruising. Past Medical History Past Medical History: Asthma, Diabetes Mellitus, Osteoarthritis (OA) Additional Past Medical History / Comment(s): Questionable history of asthma, placed at one point on albuterol, but she doesn't take it on a regular basis. History of Any Multi-Drug Resistant Organisms: None Reported Past Surgical History: Bariatric Surgery, Section, Cholecystectomy, Hernia Repair, Joint Replacement, Orthopedic Surgery Additional Past Surgical History / Comment(s): ABDOMINALPLASTY , SKIN REMOVED FROM UPPER LEGS,GASTRIC SLEEVE, STOMACH STAPLING, TOTAL LEFT KNEE, CATARACT SURGERY WITH IMPLANTS-BILATERAL Past Anesthesia/Blood Transfusion Reactions: No Reported Reaction Past Psychological History: Depression Smoking Status: Never smoker Past Alcohol Use History: Rare Past Drug Use History: None Reported - Past Family History Sister(s) Family Medical History: Deep Vein Thrombosis (DVT) Medications and Allergies Home Medications Medication Instructions Recorded Confirmed Type Vilazodone HCl [Viibryd] 40 mg PO DAILY 09/28/13 10/22/16 History metFORMIN HCL 1,000 mg PO BID 09/28/13 10/22/16 History rOPINIRole HCL [Requip] 1 mg PO QID 09/28/13 10/22/16 History Albuterol Inhaler [Ventolin Hfa 1 - 2 puff INHALATION RT-Q6H PRN 10/14/16 History Inhaler] Canagliflozin [Invokana] 300 mg PO DAILY 10/14/16 10/22/16 History Gabapentin [Neurontin] 300 mg PO BID 10/14/16 10/22/16 History Insulin Glargine,Hum.rec.anlog 35 units SQ DAILY@1200 10/14/16 10/22/16 History [Toreshma Solzelda] Liraglutide [Victoza 2-John] 1.2 mg SQ DAILY@1200 10/14/16 10/22/16 History sitaGLIPtin [Januvia] 100 mg PO DAILY 10/14/16 10/22/16 History Levothyroxine Sodium [Synthroid] 88 mcg PO DAILY 10/18/16 10/22/16 History Rivaroxaban [Xarelto] 10 mg PO DAILY #12 tab 10/18/16 10/22/16 Rx Docusate [Colace] 100 mg PO DAILY #30 capsule 10/21/16 10/22/16 Rx Famotidine [Pepcid] 20 mg PO DAILY #30 tablet 10/21/16 10/22/16 Rx hydrOXYzine PAMOATE [Vistaril] 25 mg PO Q6HR #40 capsule 10/21/16 10/22/16 Rx traMADol HCl [Ultram] 50 mg PO Q6H PRN #40 tab 10/21/16 10/22/16 Rx HYDROcodone/APAP 7.5-325MG [[place] 1 - 2 tab PO Q6HR PRN 10/22/16 10/22/16 History 7.5] Allergies Allergy/AdvReac Type Severity Reaction Status Date / Time adhesive tape Allergy Rash/Hives Verified 10/22/16 13:07 Physical Exam Vitals: Vital Signs Temp Pulse Pulse Pulse Resp BP BP 10/23/16 08:16 10/23/16 08:00 97.2 F L 83 16 125/64 10/23/16 04:00 97.3 F L 81 20 124/68 10/23/16 00:00 97.0 F L 86 20 112/71 10/22/16 20:00 99.1 F 85 18 132/65 10/22/16 18:30 97.2 F L 88 17 10/22/16 18:05 98.4 F 70 18 134/64 10/22/16 17:07 98.0 F 70 18 138/64 10/22/16 16:01 79 18 121/57 10/22/16 15:36 79 18 121/61 10/22/16 14:42 98.2 F 86 18 134/61 10/22/16 14:00 20 10/22/16 13:58 99.3 F 95 19 121/60 10/22/16 12:58 98.8 F 101 H 20 120/80 BP Pulse Ox 10/23/16 08:16 98 10/23/16 08:00 98 10/23/16 04:00 93 L 10/23/16 00:00 97 10/22/16 20:00 97 10/22/16 18:30 123/67 97 10/22/16 18:05 97 10/22/16 17:07 97 10/22/16 16:01 97 10/22/16 15:36 97 10/22/16 14:42 97 10/22/16 14:00 10/22/16 13:58 95 10/22/16 12:58 88 L Intake and Output 10/22/16 10/23/16 10/23/16 22:59 06:59 14:59 Intake Total 180 Balance 180 Intake: Oral 180 Other: # Voids 0 1 Weight 124.284 kg 123.831 kg - Constitutional General appearance: Physical examination revealed a 61-year-old female in no distress, morbidly obese.- EENT Eyes: EOMI, PERRLA ENT: hearing grossly normal, normal oropharynx - Neck Neck: no lymphadenopathy no neck masses, no JVD. Thyroid: bilateral: normal size - Respiratory Respiratory: Diminished breath sound bilaterally, no crackles, no rhonchi, no wheezes. - Cardiovascular Rhythm: regular Heart sounds: normal: S1, S2, no gallops, no murmur. - Gastrointestinal General gastrointestinal: Obese soft nontender no megaly no rebound no guarding. - Integumentary Integumentary: normal - Neurologic Neurologic: CNII-XII intact - Musculoskeletal Postop changes, right knee area - Psychiatric Psychiatric: A&O x's 3, appropriate affect Results - Laboratory Findings CBC and BMP: 10/22/16 13:54 10/23/16 05:49 ABG ABG pH 7.44 (7.35-7.45) 10/22/16 13:39 ABG pCO2 36 mmHg (35-45) 10/22/16 13:39 ABG pO2 46 mmHg (83-108) L 10/22/16 13:39 ABG O2 Saturation 83.0 % (94-97) L 10/22/16 13:39 PT/INR, D-dimer PT 12.4 sec (9.0-12.0) H 10/22/16 13:54 INR 1.2 (<1.2) H 10/22/16 13:54 D-Dimer 2.26 mg/L FEU (<0.60) H 10/23/16 05:49 Abnormal lab findings: Abnormal Labs 10/22/16 10/22/16 10/22/16 13:39 13:54 13:54 PT INR APTT D-Dimer ABG pO2 46 L ABG Total CO2 26 H ABG O2 Saturation 83.0 L Sodium 136 L BUN 31 H Glucose 203 H POC Glucose (mg/dL) AST 448 H ALT 325 H Troponin I 0.162 H* Total Protein 6.1 L Albumin 3.3 L 10/22/16 10/22/16 10/22/16 13:54 14:39 20:10 PT 12.4 H INR 1.2 H APTT 30.3 H D-Dimer ABG pO2 ABG Total CO2 ABG O2 Saturation Sodium BUN Glucose POC Glucose (mg/dL) 176 H AST ALT Troponin I 0.088 H* Total Protein Albumin 10/22/16 10/23/16 10/23/16 21:08 01:24 05:49 PT INR APTT D-Dimer ABG pO2 ABG Total CO2 ABG O2 Saturation Sodium BUN 24 H Glucose 104 H POC Glucose (mg/dL) 153 H AST 219 H ALT 277 H Troponin I 0.064 H* Total Protein 5.6 L Albumin 2.8 L 10/23/16 10/23/16 10/23/16 05:49 06:20 11:44 PT INR APTT D-Dimer 2.26 H ABG pO2 ABG Total CO2 ABG O2 Saturation Sodium BUN Glucose POC Glucose (mg/dL) 126 H 136 H AST ALT Troponin I Total Protein Albumin - Diagnostic Findings CT scan - chest: image reviewed (Poor quality CT angiogram of the chest, but suggestive of thromboembolic disease involving the right lower lobe.) Assessment and Plan Plan: Impression: 1 acute pulmonary embolism, provoked by recent right total knee arthroplasty. 2 history of multiple comorbidities including morbid obesity, type 2 diabetes, osteoarthritis, history of bariatric surgery, and abdominoplasty. Recommendation: Agree with the present treatment plan, consider discharge planning in the next 24 hours. We'll continue to follow. Patient must remain on anticoagulations therapy for at least 3-6 months. Time with Patient: Greater than 30
[2016-10-23] MEDS: INSULIN GLARGINE 100 UNIT/ML 10 ML VIAL SQ SCH (12:04)
--- NOTE | 2016-10-23 13:06 | P.CNOR ---
History of Present Illness - [facility] Consult date: 10/23/16 Consult reason: other History of present illness: This is a 61-year-old female who was seen and evaluated Matilda Magana. Patient was recommended to go to the hospital yesterday afternoon after her visiting nurse check done home. Patient recently had a right total knee arthroplasty on 10/18/2016. She spent 3 nights in the hospital, and was discharged home on 10/21/2016. Home nursing mentioned cyanosis in the lips and her O2 sats were very low. She reported to Matilda Magana later that afternoon. She underwent multiple imaging test lab studies. There is concern over possible pulmonary embolism, she was admitted under the internal medicine group with multiple medical specialties on consult, including orthopedic group. Patient is seen today resting in her hospital bed, she appears comfortable. She 's having no increase in pain involving the right knee. She denies any acute shortness of breath, chest pain, lightheadedness, headaches. She notes no recent fever chills. Patient apparently has a significant family history involving blood clots, she' s never been worked up by ore trimmer. She's never had a DVT or pulmonary embolism the past. According to other medical specialty consults, her treating this as an acute pulmonary wasn't. The plan at this point seems to be increasing her oral anticoagulant which is Xarelto. She will also be seen in the outpatient setting by hematology for a further workup. Review of Systems Constitutional: Reports as per [facility] Past Medical History Past Medical History: Asthma, Diabetes Mellitus, Osteoarthritis (OA) Additional Past Medical History / Comment(s): Questionable history of asthma, placed at one point on albuterol, but she doesn't take it on a regular basis. History of Any Multi-Drug Resistant Organisms: None Reported Past Surgical History: Bariatric Surgery, Section, Cholecystectomy, Hernia Repair, Joint Replacement, Orthopedic Surgery Additional Past Surgical History / Comment(s): ABDOMINALPLASTY , SKIN REMOVED FROM UPPER LEGS,GASTRIC SLEEVE, STOMACH STAPLING, TOTAL LEFT KNEE, CATARACT SURGERY WITH IMPLANTS-BILATERAL Past Anesthesia/Blood Transfusion Reactions: No Reported Reaction Past Psychological History: Depression Smoking Status: Never smoker Past Alcohol Use History: Rare Past Drug Use History: None Reported - Past Family History Sister(s) Family Medical History: Deep Vein Thrombosis (DVT) Medications and Allergies Home Medications Medication Instructions Recorded Confirmed Type Vilazodone HCl [Viibryd] 40 mg PO DAILY 09/28/13 10/22/16 History metFORMIN HCL 1,000 mg PO BID 09/28/13 10/22/16 History rOPINIRole HCL [Requip] 1 mg PO QID 09/28/13 10/22/16 History Albuterol Inhaler [Ventolin Hfa 1 - 2 puff INHALATION RT-Q6H PRN 10/14/16 History Inhaler] Canagliflozin [Invokana] 300 mg PO DAILY 10/14/16 10/22/16 History Gabapentin [Neurontin] 300 mg PO BID 10/14/16 10/22/16 History Insulin Glargine,Hum.rec.anlog 35 units SQ DAILY@1200 10/14/16 10/22/16 History [Jim Castaneda] Liraglutide [Victoza 2-John] 1.2 mg SQ DAILY@1200 10/14/16 10/22/16 History sitaGLIPtin [Januvia] 100 mg PO DAILY 10/14/16 10/22/16 History Levothyroxine Sodium [Synthroid] 88 mcg PO DAILY 10/18/16 10/22/16 History Rivaroxaban [Xarelto] 10 mg PO DAILY #12 tab 10/18/16 10/22/16 Rx Docusate [Colace] 100 mg PO DAILY #30 capsule 10/21/16 10/22/16 Rx Famotidine [Pepcid] 20 mg PO DAILY #30 tablet 10/21/16 10/22/16 Rx hydrOXYzine PAMOATE [Vistaril] 25 mg PO Q6HR #40 capsule 10/21/16 10/22/16 Rx traMADol HCl [Ultram] 50 mg PO Q6H PRN #40 tab 10/21/16 10/22/16 Rx HYDROcodone/APAP 7.5-325MG [[place] 1 - 2 tab PO Q6HR PRN 10/22/16 10/22/16 History 7.5] Allergies Allergy/AdvReac Type Severity Reaction Status Date / Time adhesive tape Allergy Rash/Hives Verified 10/22/16 13:07 Physical Examination Right lower extremity: Incision is clean, dry, and intact. Minimal soft tissue swelling and ecchymosis present around the knee. Calf is soft, no tenderness with palpation. Plantar flexion, dorsiflexion, EHL, FHL are intact. Sensory exam light touch throughout the extremities intact. Dorsal pedis pulses 2+. Results - Labs Labs: Abnormal Lab Results - Last 24 Hours (Table) 10/22/16 10/22/16 10/22/16 Range/Units 13:39 13:54 13:54 PT (9.0-12.0) sec INR (<1.2) APTT (22.0-30.0) sec D-Dimer (<0.60) mg/L FEU ABG pO2 46 L (83-108) mmHg ABG Total CO2 26 H (19-24) mmol/L ABG O2 Saturation 83.0 L (94-97) % Sodium 136 L (137-145) mmol/L BUN 31 H (7-17) mg/dL Glucose 203 H (74-99) mg/dL POC Glucose (mg/dL) (75-99) mg/dL AST 448 H (14-36) U/L ALT 325 H (9-52) U/L Troponin I 0.162 H* (0.000-0.034) ng/mL Total Protein 6.1 L (6.3-8.2) g/dL Albumin 3.3 L (3.5-5.0) g/dL 10/22/16 10/22/16 10/22/16 Range/Units 13:54 14:39 20:10 PT 12.4 H (9.0-12.0) sec INR 1.2 H (<1.2) APTT 30.3 H (22.0-30.0) sec D-Dimer (<0.60) mg/L FEU ABG pO2 (83-108) mmHg ABG Total CO2 (19-24) mmol/L ABG O2 Saturation (94-97) % Sodium (137-145) mmol/L BUN (7-17) mg/dL Glucose (74-99) mg/dL POC Glucose (mg/dL) 176 H (75-99) mg/dL AST (14-36) U/L ALT (9-52) U/L Troponin I 0.088 H* (0.000-0.034) ng/mL Total Protein (6.3-8.2) g/dL Albumin (3.5-5.0) g/dL 10/22/16 10/23/16 10/23/16 Range/Units 21:08 01:24 05:49 PT (9.0-12.0) sec INR (<1.2) APTT (22.0-30.0) sec D-Dimer (<0.60) mg/L FEU ABG pO2 (83-108) mmHg ABG Total CO2 (19-24) mmol/L ABG O2 Saturation (94-97) % Sodium (137-145) mmol/L BUN 24 H (7-17) mg/dL Glucose 104 H (74-99) mg/dL POC Glucose (mg/dL) 153 H (75-99) mg/dL AST 219 H (14-36) U/L ALT 277 H (9-52) U/L Troponin I 0.064 H* (0.000-0.034) ng/mL Total Protein 5.6 L (6.3-8.2) g/dL Albumin 2.8 L (3.5-5.0) g/dL 10/23/16 10/23/16 10/23/16 Range/Units 05:49 06:20 11:44 PT (9.0-12.0) sec INR (<1.2) APTT (22.0-30.0) sec D-Dimer 2.26 H (<0.60) mg/L FEU ABG pO2 (83-108) mmHg ABG Total CO2 (19-24) mmol/L ABG O2 Saturation (94-97) % Sodium (137-145) mmol/L BUN (7-17) mg/dL Glucose (74-99) mg/dL POC Glucose (mg/dL) 126 H 136 H (75-99) mg/dL AST (14-36) U/L ALT (9-52) U/L Troponin I (0.000-0.034) ng/mL Total Protein (6.3-8.2) g/dL Albumin (3.5-5.0) g/dL H & H 10/22/16 Range/Units 13:54 Hgb 11.7 (11.4-16.0) gm/dL Hct 36.0 (34.0-46.0) % Coagulation 10/22/16 Range/Units 13:54 INR 1.2 H (<1.2) Result Diagrams: 10/22/16 13:54 10/23/16 05:49 Assessment and Plan Plan: Assessment: 1. Stable right total knee arthroplasty 2. Pulmonary embolism Plan: With regards to the right knee, she remained stable. Wound care instructions were discussed with the patient at bedside. She will continue with in-home therapy and use of the CPM after discharge. Her oral anticoagulation altered slightly due to the current pulmonary embolism. I advise continuing use of ice and elevating at home. I also advised using a walker or cane with ambulation for the next few weeks. Pain control, she'll continue current medications GI and DVT prophylaxis per hematology recommendations Other medical lab scientist recommendations On orthopedic standpoint, patient remains stable for discharge to home. Time with Patient: Less than 30
[2016-10-23] MEDS: Vilazodone Hcl [Viibryd] 40 MG PO SCH (13:35)
--- NOTE | 2016-10-23 15:30 | P.PN ---
Progress Note - Text DATE OF SERVICE: 10/23/2016 PRESENTING COMPLAINT: Hypoxia HISTORY OF PRESENT ILLNESS: 61-year-old female status post recent right total knee arthroplasty discharged on 10/21/2016, seen by visiting nurse found to be hypoxic with pulse ox in the 70s, and lips were blue. No complaints of shortness of breath, swelling in the legs. Expressed some concerns regarding familial clotting disorder as the potential reason. Diagnostic testing revealed PE. Admitted for the same. INTERVAL HISTORY: 10/23/2016: Patient lying in bed appears comfortable, no shortness of breath wheezing cough or pain on inspiration. 2 L of oxygen remains in place oxygen saturations 90- 100. Cardiology,Hematology and pulmonology all agree with Eliquis treatment or PE. From an orthopedic standpoint patient's right knee is stable. Patient is tolerating her diet eating between 75% 100%, ambulatory with assistance and the use of a walker, no BM. REVIEW OF SYSTEMS: Done for constitutional ,cardiovascular, GI, pulmonary, musculoskeletal with relevant findings as above. CURRENT MEDICATIONS [place], on a gluten, Lantus 35 units subcu daily, Xarelto 15 mg by mouth twice a day ropinirole 1 mg by mouth 4 times a day, Ultram 50 g by mouth every 6 hours when necessary PHYSICAL EXAM VITAL SIGNS: 97.2, pulse 83, respiratory rate 16, blood pressure 125/64, oxygen saturation 98 % on room air. GENERAL APPEARANCE: Lying in bed, not in distress. EYES: Pupils equal. Conjunctiva normal. NECK: JVD unable to assess. Mass not palpable. RESPIRATORY: Respiratory effort normal. Lungs diminished auscultation. CARDIOVASCULAR: First and second sounds normal. No edema. ABDOMEN: Soft. Liver and spleen not palpable. No tenderness. No mass palpable. PSYCHIATRY: Alert and oriented x3. Mood and affect normal. EXTREMITY: Right knee with a dry dressing no drainage noted. INVESTIGATIONS: D-dimer 2.26, BUN 24, AST 219, ALTs 277, troponin 0.064, Accu-Cheks noted. ASSESSMENT: -Acute hypoxia likely due to chronic restrictive lung disease or obesity hypoventilation syndrome improving -Acute Pulmonary embolism -Recent right total knee arthroplasty, improving -Primary osteoarthritis multiple joints, bilateral. -Depression not otherwise specified. -Diabetes mellitus type 2 on insulin chronically. -Chronic restless leg syndrome. -Morbid obesity body mass index 46.5. -Troponin leak, could be from recent surgery. PLAN: We'll continue Eliquis 15 mg by mouth twice a day for 20 days and will switch the dose to 20 mg daily. She will likely need home oxygen therapy for discharge , as she desaturates without oxygen on. Patient to follow-up with cardiology outpatient for 2-D echo if not here in the morning, hematology also recommends a follow-up outpatient for hypercoagulable concerns. Likely stable for discharge in the next 24 hours. We'll continue to follow closely. TRADE MANAGER statement: Patient was seen and examined by nurse practitioner Martha Casper and all elements of the case discussed with attending Dr. Moran
[2016-10-23 17:03] LABS: Glucose,Whole Blood 135 mg/dL (75-99)
[2016-10-23 20:43] LABS: Glucose,Whole Blood 168 mg/dL (75-99)
[2016-10-24] MEDS: hydrOXYzine PAMOATE 25 MG CAP PO SCH ×3 (00:39→15:04)
[2016-10-24] MEDS: HYDROcodone/APAP 7.5-325MG 1 EACH TAB PO PRN ×2 (03:03→10:54)
[2016-10-24] MEDS: traMADol 50 MG TAB PO PRN ×2 (05:25→12:08)
[2016-10-24] MEDS: LEVOTHYROXINE 88 MCG TAB PO SCH (06:44)
[2016-10-24 07:39] LABS: Glucose,Whole Blood 126 mg/dL (75-99)
[2016-10-24 08:28] VITALS: BP 131/60; PULSE 70; RESP 18; TEMP 97.9
--- NOTE | 2016-10-24 08:35 | P.PN ---
Subjective This is a 61-year-old female pt who presented to the hospital with hypoxemia and was diagnosed with probable PE. CT scan was inconclusive so she was placed on Xarelto. She is s/p right knee replacement, hx of DM, asthma, osteoarthritis and morbid obesity. Upon exam today she is seen sitting in bed in no acute distress. She denies any episodes of shortness of breath or chest pain. She is currently on oxygen via nasal cannula in the process of weaning per nursing staff. She is only maintained on 1L at this time. She c/o right knee achiness at this time. Objective - Vital Signs Vital signs: Vital Signs Temp 97.9 F 10/24/16 07:00 Pulse 70 10/24/16 07:00 Resp 18 10/24/16 07:00 BP 131/60 10/24/16 07:00 Pulse Ox 95 10/24/16 07:00 Intake & Output 10/23/16 10/24/16 10/24/16 18:59 06:59 18:59 Intake Total 180 Balance 180 Intake: Oral 180 Other: # Voids 2 1 # Bowel Movements 0 - Exam GENERAL: Well-appearing, well-nourished and in no acute distress. NECK: Supple without JVD or thyromegaly. LUNGS: Breath sounds clear to auscultation bilaterally. Respiration equal and unlabored. No wheezes, rales or rhonchi. HEART: Regular rate and rhythm without murmurs, rubs or gallops. S1 and S2 heard. EXTREMITIES: No edema. No clubbing or cyanosis. Peripheral pulses intact and strong. - Labs CBC & Chem 7: 10/22/16 13:54 10/23/16 05:49 Labs: Abnormal Lab Results - Last 24 Hours (Table) 10/23/16 10/23/16 10/23/16 Range/Units 05:49 11:44 16:48 D-Dimer 2.26 H (<0.60) mg/L FEU POC Glucose (mg/dL) 136 H 135 H (75-99) mg/dL 10/23/16 10/24/16 Range/Units 20:32 07:05 D-Dimer (<0.60) mg/L FEU POC Glucose (mg/dL) 168 H 126 H (75-99) mg/dL Assessment and Plan Plan: ASSESSMENT 1. Acute pulmonary embolism 2. Morbid obesity 3. Status post right knee replacement PLAN Patient can continue on anticoagulation. Echocardiogram has been performed this morning shows normal RV size and function with no evidence of pulmonary hypertension. This does not support significant pulmonary embolism. Patient is stable for discharge home from a cardiac standpoint. She can follow-up with Dr. Chua in 2 weeks. Thank you kindly for this consultation. Nurse Practitioner note has been reviewed, I agree with a documented findings and plan of care. Patient was seen and examined.
[2016-10-24] MEDS: RIVAROXABAN 15 MG TAB PO SCH (09:51)
[2016-10-24] MEDS: GABAPENTIN 300 MG CAP PO SCH (09:51)
[2016-10-24] MEDS: FAMOTIDINE 20 MG TAB PO SCH (09:51)
[2016-10-24] MEDS: DOCUSATE 100 MG CAP PO SCH (09:51)
[2016-10-24] MEDS: Vilazodone Hcl [Viibryd] 40 MG PO SCH (09:52)
[2016-10-24] MEDS: LINAGLIPTIN 5 MG TABLET PO SCH (09:52)
--- NOTE | 2016-10-24 11:23 | ECHOF ---
Referral Reason:wall motion abnormality MEASUREMENTS -------- HEIGHT: 154.9 cm WEIGHT: 123.8 kg BP: 135/62 RVIDd: 3.0 cm (< 3.3) IVSd: 2.0 cm (0.6 - 1.1) LVIDd: 3.1 cm (3.9 - 5.3) LVPWd: 1.8 cm (0.6 - 1.1) IVSs: 2.1 cm LVIDs: 1.2 cm LVPWs: 2.0 cm Ao Diam: 2.7 cm (2.0 - 3.7) AV Cusp: 1.9 cm (1.5 - 2.6) LA Diam: 3.4 cm (2.7 - 3.8) MV EXCURSION: 17.007 mm (> 18.000) MV EF SLOPE: 111 mm/s (70 - 150) EPSS: 0.2 cm MV E Doron: 0.82 m/s MV DecT: 156 ms MV A Doron: 0.63 m/s MV E/A Ratio: 1.31 RAP: 5.00 mmHg RVSP: 31.53 mmHg FINDINGS -------- Sinus rhythm. This was a technically difficult study with suboptimal views. There is severe concentric left ventricular hypertrophy. Overall left ventricular systolic function is normal with, an EF between 55 - 60 %. The right ventricle is normal in size and function. The left atrium is normal in size. The right atrium is normal in size. The aortic valve is trileaflet, and appears structurally normal. No aortic stenosis or regurgitation. Normal appearing mitral valve. Trace tricuspid regurgitation present. The right ventricular systolic pressure, as measured by Doppler, is 31.53mmHg. The pulmonic valve was not well visualized. The aortic root size is normal. The pericardium is normal. CONCLUSIONS -------- 1. Sinus rhythm. 2. Trace tricuspid regurgitation present. 3. The right ventricular systolic pressure, as measured by Doppler, is 31.53mmHg. 4. The pulmonic valve was not well visualized. 5. The aortic root size is normal. 6. The pericardium is normal. 7. This was a technically difficult study with suboptimal views. 8. There is severe concentric left ventricular hypertrophy. 9. Overall left ventricular systolic function is normal with, an EF between 55 - 60 %. 10. The right ventricle is normal in size and function. 11. The left atrium is normal in size. 12. The right atrium is normal in size. 13. The aortic valve is trileaflet, and appears structurally normal. No aortic stenosis or regurgitation. 14. Normal appearing mitral valve. TOOL SPECIALIST: Luanne Carlson RDCS
[2016-10-24 12:19] LABS: Glucose,Whole Blood 152 mg/dL (75-99)
[2016-10-24] MEDS: INSULIN GLARGINE 100 UNIT/ML 10 ML VIAL SQ SCH (13:37)
--- NOTE | 2016-10-24 14:04 | P.PN ---
Subjective Progress note dated 10/24/2016 This is a 61-year-old female who was admitted with a diagnosis of acute pulmonary embolism, provoked by recent right total knee arthroplasty. She is a history of multiple medical problems including obesity diabetes DJD, previous bariatric surgery and abdominoplasty. She's hoping to be able be discharged home soon. Apparently her insurance allowed her to start on a factor X a inhibitor. Anyway she denies any shortness of breath chest pain chest discomfort any other complaints for that matter. Feeling generally well. Objective - Vital Signs Vital signs: Vital Signs Temp 97.9 F 10/24/16 07:00 Pulse 70 10/24/16 07:00 Resp 18 10/24/16 07:00 BP 131/60 10/24/16 07:00 Pulse Ox 95 10/24/16 08:54 Intake & Output 10/23/16 10/24/16 10/24/16 18:59 06:59 18:59 Intake Total 180 Balance 180 Intake: Oral 180 Other: # Voids 2 1 # Bowel Movements 0 - Exam No acute distress, oriented 3. HEENT examination is grossly unremarkable. Mucous membranes are moist. No oral lesions. Neck supple. Full range of motion. No adenopathy or thyromegaly. Neck veins are flat. Cardiovascular examination reveals regular rhythm rate. S1-S2 normal no S3-S4 or murmur. Lungs reveal mostly clear breath sounds. A few scattered rhonchi. No wheezes or crackles. Abdomen soft bowel sounds are heard. No masses or tenderness. Extremities are intact. No cyanosis clubbing or edema. Skin without rash. Neurologic examination is brief but nonfocal. - Labs CBC & Chem 7: 10/22/16 13:54 10/23/16 05:49 Labs: Abnormal Lab Results - Last 24 Hours (Table) 10/23/16 10/23/16 10/24/16 Range/Units 16:48 20:32 07:05 POC Glucose (mg/dL) 135 H 168 H 126 H (75-99) mg/dL 10/24/16 Range/Units 12:11 POC Glucose (mg/dL) 152 H (75-99) mg/dL Assessment and Plan (1) Pulmonary embolism Status: Acute Plan: Plan dated 10/24/2016 The patient's doing relatively well. The patient should be treated with anticoagulants in my opinion for about 3 months. Really no need to treat any longer. She should have a follow-up CT angiogram the chest. Since this was a provoked clot blood clot, treatment recommendation is 3 months. We'll continue to follow. Prognosis is guarded. Time with Patient: Less than 30
--- NOTE | 2016-10-24 17:08 | P.DS ---
Providers Date of admission: 10/22/16 16:21 Expected date of discharge: 10/24/16 Attending physician: Ronni Moran Consults: 10/22/16 16:21 Consult Physician Urgent Consulting Provider: [facility] Consult Reason/Comments: Elevated troponin Do you want consulting provider notified?: Yes Consult Physician Urgent Consulting Provider: Jesica Hartley Consult Reason/Comments: Pulmonary embolism on Xarelto, family history of clots Do you want consulting provider notified?: Yes 10/22/16 21:55 Consult Physician Routine Consulting Provider: Emili Pinzon Consult Reason/Comments: hypoxia Do you want consulting provider notified?: Yes 10/22/16 21:56 Consult Physician Routine Consulting Provider: Bayron Soriano Consult Reason/Comments: r-tka Do you want consulting provider notified?: Yes Primary care physician: Maxim Duong [facility] Course: FINAL DIAGNOSES: -Acute hypoxia likely due to chronic restrictive lung disease or obesity hypoventilation syndrome improving -Acute Pulmonary embolism -Recent right total knee arthroplasty, improving -Primary osteoarthritis multiple joints, bilateral. -Depression not otherwise specified. -Diabetes mellitus type 2 on insulin chronically. -Chronic restless leg syndrome. -Morbid obesity body mass index 46.5. -Troponin leak, could be from recent surgery. HOSPTIAL COURSE: 61-year-old female status post recent right total knee arthroplasty, discharged on 10/21/2016, seen by a visiting nurse found to be hypoxic with pulse ox in the 70s and lips were blue, however patient had no complaints of shortness of breath swelling in the legs. Sent to the emergency department, diagnostic workup revealed pulmonary embolus admitted for the same. Cardiology consulted for elevated troponin however not felt to be a cardiac event and in fact was related to pulmonary embolus. Hematology consulted for concerns regarding hypercoagulability, appears to be a history in the family of DVTs, agreed with current treatment plan with Eliquis for PE. Should follow-up outpatient to do a full workup on hypercoagulability. Pulmonology consulted and agree with acute pulmonary embolism diagnosis provoked by right total knee arthroplasty will need to remain on anticoagulation for at least 3-6 months. Orthopedics consulted and recommend continuation with discharge instructions of wound care in-home therapy and use of the CPM machine after discharge continuation of anticoagulation with adjustments made for this hospitalization. Recommend using a cane or a walker with ambulation for the next few weeks as well. Patient did have several episodes of desaturation without oxygen therapy with saturations dropping into the 70s to 80s, with 2 L nasal cannula she remains in the 90s to 100s. Will require oxygen therapy for discharge. Patient ambulating in the ballesteros and in the room with her walker, tolerating her diet eating between 50 and 75% of her meals, moved her bowels. Overall condition has stabilized, anticoagulation adjusted to cover treatment of the PE and as such will be discharged home to the care of her family. PHYSICAL EXAM: CARDIOVASCULAR: First and second sounds noted no edema RESPIRATORY: Lung sounds diminished bilaterally respiratory effort mildly labored. MUSKULOSKELETAL: Right knee incision covered with a dry dressing mild swelling noted around it no erythema noted Patient was seen and examined by nurse practitioner Martha Casper in all elements of the case discussed with attending Dr. Moran DISPOSITION: Plan - Discharge Summary New Discharge Prescriptions: New Apixaban [Eliquis] 10 mg PO BID #45 tab Sennosides-Docusate Sodium [Senokot-S] 1 tab PO DAILY #1 tablet Continue rOPINIRole HCL [Requip] 1 mg PO QID Vilazodone HCl [Viibryd] 40 mg PO DAILY metFORMIN HCL 1,000 mg PO BID Gabapentin [Neurontin] 300 mg PO BID Liraglutide [Victoza 2-John] 1.2 mg SQ DAILY@1200 Insulin Glargine,Hum.rec.anlog [Toubautistao Solostar] 35 units SQ DAILY@1200 Canagliflozin [Invokana] 300 mg PO DAILY sitaGLIPtin [Januvia] 100 mg PO DAILY Albuterol Inhaler [Ventolin Hfa Inhaler] 1 - 2 puff INHALATION RT-Q6H PRN PRN Reason: Shortness Of Breath Levothyroxine Sodium [Synthroid] 88 mcg PO DAILY Famotidine [Pepcid] 20 mg PO DAILY #30 tablet hydrOXYzine PAMOATE [Vistaril] 25 mg PO Q6HR #40 capsule traMADol HCl [Ultram] 50 mg PO Q6H PRN #40 tab PRN Reason: Pain HYDROcodone/APAP 7.5-325MG [[place] 7.5-325] 1 - 2 tab PO Q6HR PRN PRN Reason: Pain Discontinued Rivaroxaban [Xarelto] 10 mg PO DAILY #12 tab Docusate [Colace] 100 mg PO DAILY #30 capsule Discharge Medication List Vilazodone HCl [Viibryd] 40 mg PO DAILY 09/28/13 [History] metFORMIN HCL 1,000 mg PO BID 09/28/13 [History] rOPINIRole HCL [Requip] 1 mg PO QID 09/28/13 [History] Albuterol Inhaler [Ventolin Hfa Inhaler] 1 - 2 puff INHALATION RT-Q6H PRN [History] Canagliflozin [Invokana] 300 mg PO DAILY 10/14/16 [History] Gabapentin [Neurontin] 300 mg PO BID 10/14/16 [History] Insulin Glargine,Hum.rec.anlog [Toubautistao Solostar] 35 units SQ DAILY@1200 [History] Liraglutide [Victoza 2-John] 1.2 mg SQ DAILY@1200 10/14/16 [History] sitaGLIPtin [Januvia] 100 mg PO DAILY 10/14/16 [History] Levothyroxine Sodium [Synthroid] 88 mcg PO DAILY 10/18/16 [History] Famotidine [Pepcid] 20 mg PO DAILY #30 tablet 10/21/16 [Rx] hydrOXYzine PAMOATE [Vistaril] 25 mg PO Q6HR #40 capsule 10/21/16 [Rx] traMADol HCl [Ultram] 50 mg PO Q6H PRN #40 tab 10/21/16 [Rx] HYDROcodone/APAP 7.5-325MG [[place] 7.5-325] 1 - 2 tab PO Q6HR PRN 10/22/16 [ History] Apixaban [Eliquis] 10 mg PO BID #45 tab 10/24/16 [Rx] Sennosides-Docusate Sodium [Senokot-S] 1 tab PO DAILY #1 tablet 10/24/16 [Rx] Follow up Appointment(s)/Referral(s): Emili Pinzon MD [STAFF PHYSICIAN] - 1 Week (Pt wants to make all of her own appointments) Denis Gutierrez MD [STAFF PHYSICIAN] - 4 Weeks (Pt wishes to make her own appointment. Please call office [phone] for appt) [facility] [NON-STAFF] - Maxim Montilla MD [Primary Care Provider] - 1-2 days (Pt wishes to make own appt) Raoul Chua MD [STAFF PHYSICIAN] - 2 Weeks (Pt wishes to make own appt.) Bayron Soriano MD [STAFF PHYSICIAN] - 1 Week (Pt wishes to make own appointment. ) Patient Instructions/Handouts: Pulmonary Embolism (DC) Activity/Diet/Wound Care/Special Instructions: Eliquis 10 mg twice daily for 7 days then 5 mg twice daily. Cardiac, diabetic diet. Activity as tolerated. Discharge Disposition: HOME WITH HOME HEALTH SERVICES
--- NOTE | 2016-10-24 21:29 | PN ---
PROGRESS NOTE DATE OF SERVICE: 10/23/16 ATTENDING NOTE: This patient was seen by me and examined by me on 10/23/2016. I discussed with my [employer], Ms. Casper. Breathing is stable. Requiring oxygen. No new issues. Tolerating a diet. PHYSICAL EXAMINATION: On exam lungs decreased breath sounds. CARDIOVASCULAR: First and second sounds normal. ASSESSMENT: 1. Acute hypoxia felt to be from acute pulmonary embolism. There may be likely a chronic hypoxia element due to restrictive lung disease. 2. Obesity hypoventilation syndrome. 3. Acute pulmonary embolism. PLAN: Continue current medication and treatment plan. Anticoagulations to continue. The patient will need oxygen for home use. Follow with pulmonary. Care was discussed with the patient and her . RAMAN / CAMILON: [id number] /
--- NOTE | 2016-10-25 14:18 | DS ---
DISCHARGE SUMMARY DATE OF SERVICE: 10/24/2016 ADDENDUM TO DISCHARGE SUMMARY ATTENDING NOTE: This patient was seen and examined by me. I discussed with my nurse practitioner, Ms. Casper. The patient is feeling better, requiring oxygen. ON EXAMINATION: LUNGS: Decreased breath sounds. CARDIOVASCULAR: First and second sounds normal. ASSESSMENT: 1. Acute hypoxic respiratory failure due to acute pulmonary embolism due to deep venous thrombosis. 2. Suspect chronic hypoxic respiratory failure due to underlying chronic restrictive lung disease/obesity hypoventilation syndrome, for further workup as an outpatient. PLAN: Care was discussed at length with the patient's . Questions were answered. Discharge planning more than 35 minutes. MMODL / IJN: [id number] /
== END 2016-10-24 15:13 | disposition home health service (06) | DRG 175 ==
LOC: EC 12:57 → 6SEL 16:21 → 4MS4W 10-23 18:12
PROVIDERS: ADMIT Hospitalist; ATTEND Hospitalist
DX: I26.99 Other pulmonary embolism without acute cor pulmonale (principal); J96.21 Acute and chronic respiratory failure with hypoxia; D68.9 Coagulation defect, unspecified; E66.2 Morbid (severe) obesity with alveolar hypoventilation; Z68.42 Body mass index [BMI] 45.0-49.9, adult; Z96.651 Presence of right artificial knee joint; F32.9 Major depressive disorder, single episode, unspecified; E11.9 Type 2 diabetes mellitus without complications; G25.81 Restless legs syndrome; J98.4 Other disorders of lung; Z96.652 Presence of left artificial knee joint; J45.909 Unspecified asthma, uncomplicated; Z96.1 Presence of intraocular lens; M15.9 Polyosteoarthritis, unspecified; Z91.048 Other nonmedicinal substance allergy status; Z83.2 Family history of diseases of the blood and blood-forming organs and certain disorders involving the immune mechanism; Z98.84 Bariatric surgery status; Z79.01 Long term (current) use of anticoagulants; Z79.899 Other long term (current) drug therapy; Z90.49 Acquired absence of other specified parts of digestive tract; Z87.19 Personal history of other diseases of the digestive system; Z79.4 Long term (current) use of insulin; Z79.891 Long term (current) use of opiate analgesic; Z79.51 Long term (current) use of inhaled steroids; Z98.41 Cataract extraction status, right eye; Z98.42 Cataract extraction status, left eye
CPT/HCPCS: 36415; 36600; 71020; 71275; 80053; 82550; 82553; 82805; 83880; 84484; 85025; 85379; 85610; 85730; 93005; 93306; 93970; 94760; 96360; 96372; 99291

== ENCOUNTER 2016-11-05 03:26 | Observation (INO) | payer MEDICARE ==
[2016-11-05] MEDS ORDERED: SODIUM CHLORIDE 0.9% 500 ML IV STA (03:38)
--- NOTE | 2016-11-05 03:43 | ED ---
General Adult HPI - General Source: EMS Mode of arrival: EMS <Laxmi Bingham - Last Filed: 11/05/16 06:24> <Olivier Cohen - Last Filed: 11/17/16 08:58> - General Chief complaint: Fall Stated complaint: Fall/Knee Injury Time Seen by Provider: 11/05/16 03:27 - History of Present Illness Initial comments: 61-year-old female patient presented to emergency department today for evaluation after experiencing a fall just prior to arrival. Patient states that she was about to go up the stairs, went up 1 step, states that she got very dizzy her vision went black and she passed out. Patient states when she came to she was wedged between the entertainment center and the staircase. She believes she was only unconscious for a few seconds. She states when she woke that her legs were twisted beneath her. She is unsure she had her head. Patient states that she was having severe pain in her right knee, right leg, and right foot. She states that she did undergo a right total knee arthroplasty on 10/18/2016. She states that shortly after that she was readmitted with pulmonary embolism for which she is currently being treated. She states that she had been feeling fine all day yesterday. She denies any neck pain or back pain. Patient denies any recent rash, fever, chills, shortness breath, chest pain, abdominal pain, nausea, vomiting, diarrhea, constipation, back pain, numbness, tingling, dizziness, weakness, hematuria, dysuria, urinary urgency, urinary frequency, headache, or visual disturbance. She denies any history of syncope. (Laxmi Bingham) - Related Data Home Medications Medication Instructions Recorded Confirmed Vilazodone HCl [Viibryd] 40 mg PO QAM 09/28/13 11/15/16 metFORMIN HCL 1,000 mg PO BID 09/28/13 11/15/16 rOPINIRole HCL [Requip] 1 mg PO QID 09/28/13 11/15/16 Albuterol Inhaler [Ventolin Hfa 1 - 2 puff INHALATION RT-Q6H PRN 10/14/16 Inhaler] Canagliflozin [Invokana] 300 mg PO DAILY 10/14/16 11/15/16 Gabapentin [Neurontin] 300 mg PO BID 10/14/16 11/15/16 Insulin Glargine,Hum.rec.anlog 35 units SQ DAILY@1200 10/14/16 11/15/16 [Jim Castaneda] Liraglutide [Victoza 2-John] 1.8 mg SQ DAILY@1200 10/14/16 11/15/16 sitaGLIPtin [Januvia] 100 mg PO DAILY 10/14/16 11/15/16 Levothyroxine Sodium [Synthroid] 88 mcg PO QAM 10/18/16 11/15/16 HYDROcodone/APAP 7.5-325MG [[place] 1 - 2 tab PO Q6HR PRN 10/22/16 11/15/16 7.5-325] Apixaban [Eliquis] 5 mg PO BID 11/05/16 11/15/16 Famotidine [Pepcid] 20 mg PO QAM 11/14/16 11/15/16 Previous Rx's Medication Instructions Recorded hydrOXYzine PAMOATE [Vistaril] 25 mg PO Q6HR #40 capsule 10/21/16 traMADol HCl [Ultram] 50 mg PO Q6H PRN #40 tab 10/21/16 Allergies Allergy/AdvReac Type Severity Reaction Status Date / Time adhesive tape Allergy Rash/Hives Verified 11/15/16 16:45 Review of Systems ROS Other: All systems not noted in ROS Statement are negative. <Laxmi Bingham - Last Filed: 11/05/16 06:24> ROS Other: All systems not noted in ROS Statement are negative. <Olivier Cohen - Last Filed: 11/17/16 08:58> ROS Statement: Those systems with pertinent positive or pertinent negative responses have been documented in the HPI. Past Medical History Past Medical History: Asthma, Diabetes Mellitus, Osteoarthritis (OA), Pulmonary Embolus (PE) Additional Past Medical History / Comment(s): Questionable history of asthma, placed at one point on albuterol, but she doesn't take it on a regular basis. PE in lung History of Any Multi-Drug Resistant Organisms: None Reported Past Surgical History: Bariatric Surgery, Section, Cholecystectomy, Hernia Repair, Joint Replacement, Orthopedic Surgery Additional Past Surgical History / Comment(s): ABDOMINALPLASTY , SKIN REMOVED FROM UPPER LEGS,GASTRIC SLEEVE, STOMACH STAPLING, TOTAL LEFT KNEE, CATARACT SURGERY WITH IMPLANTS-BILATERAL Past Anesthesia/Blood Transfusion Reactions: No Reported Reaction Past Psychological History: Depression Smoking Status: Never smoker Past Alcohol Use History: Rare Past Drug Use History: None Reported - Past Family History Sister(s) Family Medical History: Deep Vein Thrombosis (DVT) <Laxmi Bingham - Last Filed: 11/05/16 06:24> General Exam General appearance: alert, in distress (Well-developed, obese female sitting up in bed somewhat frantic. Crying stating that the pain in her leg is severe. Vital signs upon admission were temperature 98.9F, pulse 82, respirations 18, blood pressure 157/87, pulse ox 99% 2 L.), obese, other Head exam: Present: atraumatic, normocephalic, normal inspection Eye exam: Present: normal appearance, PERRL, EOMI. Absent: scleral icterus, conjunctival injection, periorbital swelling ENT exam: Present: normal exam, normal oropharynx, mucous membranes moist Neck exam: Present: normal inspection, full ROM, other (Nontender, no step-off, no deformity to firm midline palpation of the posterior cervical spine. Full range of motion without pain or limitation.). Absent: tenderness, meningismus, lymphadenopathy Respiratory exam: Present: normal lung sounds bilaterally. Absent: respiratory distress, wheezes, rales, rhonchi, stridor Cardiovascular Exam: Present: regular rate, normal rhythm, normal heart sounds. Absent: systolic murmur, diastolic murmur, rubs, gallop, clicks GI/Abdominal exam: Present: soft, normal bowel sounds, other (No evidence of surface trauma, ecchymosis, or abrasions.). Absent: distended, tenderness, guarding, rebound, rigid Extremities exam: Present: tenderness (Tenderness over the dorsal aspect of the entire foot, the medial and lateral aspect of the ankle, the tib-fib, and the right knee.), normal capillary refill, other (Are as evidence of a superficial abrasion to the right distal ruiz. Evidence of some ecchymosis noted to the dorsal aspect of the right great toe. Skin otherwise pink, warm, and dry. Cap refill less than 3 seconds. Pedal and posttibial pulses are strong and equal bilaterally. There is evidence of a healing right knee incision. Well approximated.). Absent: full ROM (Limited range of motion to the knee and ankle due to increased pain with movement.), pedal edema, joint swelling, calf tenderness Back exam: Present: normal inspection, other (Nontender, no step-off, no deformity to firm midline palpation of the thoracic and lumbar vertebrae. Full range of motion without pain or limitation.). Absent: tenderness, vertebral tenderness Neurological exam: Present: alert, oriented X3, CN II-XII intact Psychiatric exam: Present: normal affect, anxious Skin exam: Present: warm, dry, intact, normal color. Absent: rash <Laxmi Bingham - Last Filed: 11/05/16 06:24> EKG Findings - EKG Comments: EKG Findings:: EKG obtained at 0621 is a repeat now the patient is more calm and able to sit still for the past. This exam shows normal sinus rhythm with a ventricular rate of 83, OR interval 144, QRS duration 84, QT 374, QTC 439. No evidence of ST elevation or depression. <Laxmi Bingham - Last Filed: 11/05/16 06:24> Medical Decision Making - Lab Data Result diagrams: 11/05/16 04:12 11/05/16 04:12 - Radiology Data Radiology results: report reviewed, image reviewed <Laxmi Bingham - Last Filed: 11/05/16 06:24> - Lab Data Result diagrams: 11/05/16 04:12 11/05/16 04:12 <Olivier Cohen - Last Filed: 11/17/16 08:58> - Medical Decision Making 61-year-old female patient presented after a fall related to a syncopal episode at home. Patient underwent right total knee arthroplasty on 10/18/2016, was readmitted shortly thereafter for pulmonary embolism. Lab work was reviewed and did show white blood cell count of 11.3. Urinalysis showed a cloudy appearance, trace protein, 4+ urine glucose, trace blood, large amount of leukocyte esterase, 7 red blood cells, 66 white blood cells, occasional white blood cell clumps, 11 squamous epithelial cells, and occasional bacteria. X- rays of the right knee, tib-fib, and the foot were reviewed and showed a possible subacute fracture to the third proximal phalanx on the right foot. Patient is still having significant pain to the right leg and knee. Did discuss findings with my attending Dr. Cohen. Patient will be admitted to the service of Dr. diamond for further evaluation of the syncopal episode. Did discuss this plan with the patient and she verbalizes understanding and agrees to the plan. (Laxmi Bingham) I saw this patient in conjunction with the physician geriatric assistant. I performed independent history and physical exam. Agree with case management. (Olivier Cohen) - Lab Data Lab Results 11/05/16 11/05/16 11/05/16 Range/Units 04:12 04:12 04:12 WBC 11.3 H (3.8-10.6) k/uL RBC 4.65 (3.80-5.40) m/uL Hgb 13.1 (11.4-16.0) gm/dL Hct 41.8 (34.0-46.0) % MCV 89.9 (80.0-100.0) fL MCH 28.2 (25.0-35.0) pg MCHC 31.3 (31.0-37.0) g/dL RDW 15.6 H (11.5-15.5) % Plt Count 413 (150-450) k/uL Neutrophils % 73 % Lymphocytes % 17 % Monocytes % 6 % Eosinophils % 2 % Basophils % 1 % Neutrophils # 8.2 H (1.3-7.7) k/uL Lymphocytes # 2.0 (1.0-4.8) k/uL Monocytes # 0.7 (0-1.0) k/uL Eosinophils # 0.3 (0-0.7) k/uL Basophils # 0.1 (0-0.2) k/uL Hypochromasia Slight PT (9.0-12.0) sec INR (<1.2) APTT (22.0-30.0) sec Sodium 141 (137-145) mmol/L Potassium 4.7 (3.5-5.1) mmol/L Chloride 102 (98-107) mmol/L Carbon Dioxide 25 (22-30) mmol/L Anion Gap 14 mmol/L BUN 19 H (7-17) mg/dL Creatinine 0.70 (0.52-1.04) mg/dL Est GFR (MDRD) Af Amer >60 (>60 ml/min/1.73 sqM) Est GFR (MDRD) Non-Af >60 (>60 ml/min/1.73 sqM) Glucose 192 H (74-99) mg/dL POC Glucose (mg/dL) (75-99) mg/dL POC Glu Digital Tech ID Calcium 10.0 (8.4-10.2) mg/dL Total Bilirubin 0.4 (0.2-1.3) mg/dL AST 24 (14-36) U/L ALT 37 (9-52) U/L Alkaline Phosphatase 83 (38-126) U/L Total Creatine Kinase 25 L (30-135) U/L CK-MB (CK-2) <0.2 (0.0-2.4) ng/mL CK-MB (CK-2) Rel Index Troponin I <0.012 (0.000-0.034) ng/mL Total Protein 7.1 (6.3-8.2) g/dL Albumin 3.9 (3.5-5.0) g/dL Urine Color Urine Appearance (Clear) Urine pH (5.0-8.0) Ur Specific [place] (1.001-1.035) Urine Protein (Negative) Urine Glucose (UA) (Negative) Urine Ketones (Negative) Urine Blood (Negative) Urine Nitrite (Negative) Urine Bilirubin (Negative) Urine Urobilinogen (<2.0) mg/dL Ur Leukocyte Esterase (Negative) Urine RBC (0-5) /hpf Urine WBC (0-5) /hpf Urine WBC Clumps (None) /hpf Ur Squamous Epith Cells (0-4) /hpf Urine Bacteria (None) /hpf 11/05/16 11/05/16 11/05/16 Range/Units 04:12 04:20 04:28 WBC (3.8-10.6) k/uL RBC (3.80-5.40) m/uL Hgb (11.4-16.0) gm/dL Hct (34.0-46.0) % MCV (80.0-100.0) fL MCH (25.0-35.0) pg MCHC (31.0-37.0) g/dL RDW (11.5-15.5) % Plt Count (150-450) k/uL Neutrophils % % Lymphocytes % % Monocytes % % Eosinophils % % Basophils % % Neutrophils # (1.3-7.7) k/uL Lymphocytes # (1.0-4.8) k/uL Monocytes # (0-1.0) k/uL Eosinophils # (0-0.7) k/uL Basophils # (0-0.2) k/uL Hypochromasia PT 10.5 (9.0-12.0) sec INR 1.0 (<1.2) APTT 24.2 (22.0-30.0) sec Sodium (137-145) mmol/L Potassium (3.5-5.1) mmol/L Chloride (98-107) mmol/L Carbon Dioxide (22-30) mmol/L Anion Gap mmol/L BUN (7-17) mg/dL Creatinine (0.52-1.04) mg/dL Est GFR (MDRD) Af Amer (>60 ml/min/1.73 sqM) Est GFR (MDRD) Non-Af (>60 ml/min/1.73 sqM) Glucose (74-99) mg/dL POC Glucose (mg/dL) 176 H (75-99) mg/dL POC Glu Digital Tech ID Erica Hardin Calcium (8.4-10.2) mg/dL Total Bilirubin (0.2-1.3) mg/dL AST (14-36) U/L ALT (9-52) U/L Alkaline Phosphatase (38-126) U/L Total Creatine Kinase (30-135) U/L CK-MB (CK-2) (0.0-2.4) ng/mL CK-MB (CK-2) Rel Index Troponin I (0.000-0.034) ng/mL Total Protein (6.3-8.2) g/dL Albumin (3.5-5.0) g/dL Urine Color Yellow Urine Appearance Cloudy H (Clear) Urine pH 5.5 (5.0-8.0) Ur Specific [place] 1.025 (1.001-1.035) Urine Protein Trace H (Negative) Urine Glucose (UA) 4+ H (Negative) Urine Ketones Negative (Negative) Urine Blood Trace H (Negative) Urine Nitrite Negative (Negative) Urine Bilirubin Negative (Negative) Urine Urobilinogen <2.0 (<2.0) mg/dL Ur Leukocyte Esterase Large H (Negative) Urine RBC 7 H (0-5) /hpf Urine WBC 56 H (0-5) /hpf Urine WBC Clumps Occasional H (None) /hpf Ur Squamous Epith Cells 11 H (0-4) /hpf Urine Bacteria Occasional H (None) /hpf Disposition Decision to Admit Reason: Admit from EC Decision Date: 11/05/16 Decision Time: 06:12 <Laxmi Bingham - Last Filed: 11/05/16 06:24> <Olivier Cohen - Last Filed: 11/17/16 08:58> Clinical Impression: Syncope, Urinary tract infection Disposition: ADMITTED IP TO THIS HOSP
[2016-11-05] MEDS ORDERED: HYDROmorphone 1 MG/ML 1 ML SYRINGE IVP STA (03:44)
[2016-11-05 04:25] LABS: Basophils # (A) 0.1 k/uL (0-0.2); Basophils % (A) 1 %; CH 29.1; CHCM 32.5; Eosinophils # (A) 0.3 k/uL (0-0.7); Eosinophils % (A) 2 %; HCT 41.8 % (34.0-46.0); HDW 3.21; HGB 13.1 gm/dL (11.4-16.0); Hypochromasia Slight; Luc # (Auto) 0.16; Luc % (Auto) 1; Lymphocytes % (A) 17 %; MCH 28.2 pg (25.0-35.0); MCHC 31.3 g/dL (31.0-37.0); MCV 89.9 fL (80.0-100.0); Mean Platelet Volume 7.2; Monocytes # (A) 0.7 k/uL (0-1.0); Monocytes % (A) 6 %; Neutrophils # (A) 8.2 k/uL (1.3-7.7); Neutrophils % (A) 73 %; RBC 4.65 m/uL (3.80-5.40); RDW 15.6 % (11.5-15.5); WBC 11.3 k/uL (3.8-10.6)
[2016-11-05 04:34] LABS: Glucose,Whole Blood 176 mg/dL (75-99)
[2016-11-05 04:35] LABS: Partial Thromboplastin Time 24.2 sec (22.0-30.0); Prothrombin Time 10.5 sec (9.0-12.0)
[2016-11-05 04:36] LABS: ALT 37 U/L (9-52); AST 24 U/L (14-36); Alkaline Phosphatase 83 U/L (38-126); Anion Gap 14 mmol/L; Blood Urea Nitrogen 19 mg/dL (7-17); Carbon Dioxide 25 mmol/L (22-30); Chloride 102 mmol/L (98-107); Glucose 192 mg/dL (74-99); Non-African American GFR(MDRD) >60 (>60 ml/min/1.73 sqM); Potassium 4.7 mmol/L (3.5-5.1); Sodium 141 mmol/L (137-145); Total Bilirubin 0.4 mg/dL (0.2-1.3); Total Protein 7.1 g/dL (6.3-8.2)
[2016-11-05] MEDS ORDERED: LORazepam 2 MG/ML SYRINGE IV STA (04:42)
[2016-11-05 04:48] LABS: Creatine Kinase 25 U/L (30-135)
[2016-11-05 04:52] LABS: Appearance,Urine Cloudy (Clear); Bacteria,Urine Occasional /hpf; Bilirubin,Urine Negative (Negative); Glucose,Urine (UA) 4+ (Negative); Ketones,Urine Negative (Negative); Leukocyte Esterase,Urine Large (Negative); Nitrite,Urine Negative (Negative); PH, Urine 5.5 (5.0-8.0); Particle Count 62977; Protein,Urine Trace (Negative); RBC,Urine 7 /hpf (0-5); Specific Gravity,Urine 1.025 (1.001-1.035); Squamous Epithelial Cell,Urine 11 /hpf (0-4); UA Billing (MACRO vs. MICRO) MICRO; Urobilinogen,Urine <2.0 mg/dL (<2.0); WBC,Urine 56 /hpf (0-5)
[2016-11-05 05:01] LABS: Creatine Kinase MB <0.2 ng/mL (0.0-2.4); Troponin I <0.012 ng/mL (0.000-0.034)
--- NOTE | 2016-11-05 05:29 | XR ---
EXAM: XR Chest, 2 Views. CLINICAL HISTORY: Reason: syncope TECHNIQUE: Frontal and lateral views of the chest. COMPARISON: 10/22/16. FINDINGS: Lungs: Lungs are mildly hypoinflated. There is no evidence of airspace consolidation or diffuse interstitial abnormality. Mild prominence of interstitial markings likely due to hypoinflation or early mild pulmonary vascular congestion. Pleural spaces: No significant pleural effusion. No pneumothorax. Heart: Borderline cardiomegaly. Mediastinum: No mediastinal widening or shift. Bones: Unremarkable. No acute fracture. IMPRESSION: No airspace consolidation or pleural effusion. Borderline cardiomegaly and possible mild pulmonary vascular congestion.
--- NOTE | 2016-11-05 05:32 | XR ---
EXAM: XR Right Tibia and Fibula, 2 Views. CLINICAL HISTORY: Reason: Pain TECHNIQUE: Frontal and lateral views of the right tibia and fibula. COMPARISON: No relevant prior studies available. FINDINGS: Bones: There is no evidence of acute fracture. Bone density is within normal limits. Joints: Status post total knee replacement. Both femoral and tibial components are normally aligned, without evidence of loosening or hardware failure. Mild degenerative changes of the ankle joint. Soft tissues: No significant soft tissue swelling. No radiopaque foreign body. IMPRESSION: No acute osseous abnormality. Right knee prosthesis, without evidence of hardware failure.
--- NOTE | 2016-11-05 05:37 | XR ---
ADDENDUM - Added by Ziggy Lozano M.D. on 11/05/2016 5:37 AM (-07:00) EXAM: XR Right Foot Complete, 3 or More Views. CLINICAL HISTORY: Reason: Pain TECHNIQUE: Frontal, lateral and oblique views of the right foot. COMPARISON: No relevant prior studies available. FINDINGS: Bones: Thin lucent line along the medial base of the third proximal phalanx could represent a subacute or chronic nondisplaced fracture at this site. Otherwise no evidence of acute fracture. There is a 9 mm plantar heel spur. Joints: Severe degenerative changes at the first metatarsophalangeal joint. Moderate degenerative changes seen within the tibiotalar and subtalar joints, as well as within the second metatarsophalangeal joint. No dislocation. Soft tissues: No significant soft tissue swelling. No radiopaque foreign body. IMPRESSION: No evidence of acute fracture or dislocation. Questionable subacute nondisplaced fracture within the third proximal phalanx. Please correlate with any pain at this site. Degenerative changes, as above. EXAM: XR Right Foot Complete, 3 or More Views. CLINICAL HISTORY: Reason: Pain TECHNIQUE: Frontal, lateral and oblique views of the right foot. COMPARISON: No relevant prior studies available. FINDINGS: Bones: Thin lucent line along the medial base of the third proximal phalanx could represent a subacute or chronic nondisplaced fracture at this site. Otherwise no evidence of acute fracture. There is a 9 mm plantar heel spur. Joints: Severe degenerative changes at the first metatarsophalangeal joint. Moderate degenerative changes seen within the tibiotalar and subtalar joints, as well as within the second metatarsophalangeal joint. No dislocation. Soft tissues: No significant soft tissue swelling. No radiopaque foreign body. IMPRESSION: Normal right foot.
[2016-11-05] MEDS ORDERED: NALOXONE 0.4 MG/ML 1 ML VIAL IV PRN (06:06)
[2016-11-05] MEDS ORDERED: HYDROcodone/APAP 7.5-325MG 1 EACH TAB PO PRN ×4 (06:25→13:17)
[2016-11-05] MEDS ORDERED: CIPROFLOXACIN HCL 500 MG TAB PO SCH (09:00)
[2016-11-05 12:00] LABS: Glucose,Whole Blood 127 mg/dL (75-99)
[2016-11-05] MEDS ORDERED: NON-FORMULARY DRUG (Canagliflozin [Invokana] 300 MG) PO SCH (14:00)
[2016-11-05] MEDS: LINAGLIPTIN 5 MG TABLET PO SCH (14:39)
[2016-11-05] MEDS: metFORMIN 500 MG TAB PO SCH ×2 (14:39→20:32)
[2016-11-05] MEDS: traMADol 50 MG TAB PO PRN ×2 (15:36→20:32)
--- NOTE | 2016-11-05 16:32 | HP ---
HISTORY AND PHYSICAL DATE OF ADMISSION: 11/05/2016 PRESENTING COMPLAINT: Fall. HISTORY OF PRESENTING COMPLAINT: This is a pleasant 61-year-old patient who was recently in the hospital around 10/21/16 under the care of Dr. Soriano. She underwent right total knee arthroplasty. She presented then on 10/22/16 and was found to have a pulmonary embolism. The patient was also felt to have restrictive lung disease. She was put on oxygen and has been home. Last night the patient was sleeping in the chair and dozed off. Around 2:00 in the morning she decided to go to her bedroom. She took a couple of steps and thinks she lost her balance. She went on to fall between the staircase and a piece of furniture and got stuck in there. She had to wriggle herself out of there. There was no chest pain, no palpitation, no focal weakness, no seizure activity, no incontinence. Patient had some pain at the operative site around the right knee and presented to the ER. REVIEW OF SYSTEMS: CONSTITUTIONAL: None. HEENT: None. RESPIRATORY: On home oxygen. CARDIOVASCULAR: None. GASTROINTESTINAL: None. GENITOURINARY: None. MUSCULOSKELETAL: Some pain around the right knee, left foot. DERMATOLOGICAL: Incision healing well. HEMATOLOGICAL: None. LYMPHATICS: None. PSYCHIATRY: Depression, controlled. NEUROLOGICAL: Restless leg syndrome. PAST HISTORY: 1. Diabetes mellitus, type 2. 2. Osteoarthritis. 3. Depression. 4. Restless leg syndrome. 5. Hypothyroidism. 6. Possibly restrictive lung disease. 7. Element of obesity hypoventilation syndrome. PAST SURGICAL HISTORY: 1. Bariatric surgery. 2. C section. 3. Cholecystectomy. 4. Hernia repair. 5. Joint replacement. 6. Abdominoplasty. 7. Skin removed from the left lower leg. 8. Gastric sleeve. 9. Stomach stapling. 10.Left total knee. 11.Cataract surgery with implants. 12.Bilateral right total knee. SOCIAL HISTORY: . No alcohol. FAMILY HISTORY: DVT. ALLERGIES: ADHESIVE TAPE. HOME MEDICATIONS: 1. Ultram 50 mg q.6 p.r.n. 2. Januvia 100 mg p.o. daily. 3. Requip 1 mg p.o. q.i.d. 4. Metformin 1000 mg p.o. b.i.d. 5. Vistaril 25 mg p.o. q.6. 6. Viibryd 40 mg p.o. daily. 7. Senokot S one tablet p.o. daily. 8. Victoza 1.2 mg subcutaneously daily. 9. Synthroid 88 mcg p.o. daily. 10.Insulin Glargine 35 units subcutaneously daily. 11.[place] 7.5 one to two tablets q.6 p.r.n. 12.Neurontin 300 mg p.o. b.i.d. 13.Pepcid 20 mg p.o. daily. 14.Invokana 300 mg p.o. daily. 15.Eliquis 5 mg p.o. b.i.d. 16.Ventolin 1-2 puffs q.6 p.r.n. PHYSICAL EXAMINATION: VITAL SIGNS ON PRESENTATION: Temperature 98.9, pulse 82, respiratory rate 18, blood pressure 157/87, pulse ox 95% on 2 L. GENERAL APPEARANCE: Well built; BMI 51.6. Lying in bed, not in distress. EYES: Pupils equal.. Conjunctivae normal. HEENT: Oral cavity normal. NECK: JVD not raised. Mass not palpable. RESPIRATORY: Effort normal. Lungs are clear. CARDIOVASCULAR: First and second sounds normal. No edema. ABDOMEN: Soft, nontender. Liver and spleen not palpable. LYMPHATIC: No lymph palpable in neck or axillae. PSYCHIATRY: Alert and oriented x3. Mood and affect normal. NEUROLOGICAL: Pupils equal. Cranial nerves grossly intact. Power and sensation grossly intact. EXTREMITIES: Right knee incision healing well. Minimal tenderness. Some bruising in the left foot. INVESTIGATIONS: White count 11.3, hemoglobin 13.1, potassium 4.7. UA is positive. EKG shows normal sinus rhythm. Foot x-ray shows subacute nondisplaced fracture within the third proximal phalanx. Tib- fib x-ray of right knee shows prosthesis shows no fracture. ASSESSMENT: 1. Fall, likely from patient being rather sleepy when she was walking. There were no neurological symptoms per se, no physical findings. Patient was rather sleepy when she is walking and missed a step and took the fall. 2. Recent right total knee arthroplasty. 3. Primary osteoarthritis in multiple joints, bilateral. 4. Depression not otherwise specified. 5. Diabetes mellitus, type 2, chronically on insulin. 6. Chronic restless leg syndrome. 7. Morbid obesity; BMI 46.5. 8. Chronic hypoxic respiratory failure due to underlying chronic restrictive lung disease and obesity hypoventilation syndrome. 9. Acute pulmonary embolism, PE being on 10/22/16, currently on Xarelto. 10.Subacute nondisplaced fracture within the third proximal phalanx. PLAN: Home medications were resumed. The patient today does not want any further workup at this point. Will get a quick opinion from Dr. Soriano's team. Other than the foot support, nothing further should be quite required. There is no fracture of the prosthesis. This was discussed in detail with the patient. MMODL / IJN: [id number] /
[2016-11-05 17:02] LABS: Glucose,Whole Blood 122 mg/dL (75-99)
[2016-11-05] MEDS: hydrOXYzine PAMOATE 25 MG CAP PO SCH (18:05)
[2016-11-05] MEDS: HYDROcodone/APAP 7.5-325MG 1 EACH TAB PO PRN ×2 (18:05→22:12)
[2016-11-05 20:24] LABS: Glucose,Whole Blood 159 mg/dL (75-99)
[2016-11-05] MEDS: APIXABAN 5 MG TAB PO SCH (20:32)
[2016-11-05] MEDS: CEFUROXIME 250 MG TAB PO SCH (20:32)
[2016-11-05] MEDS: GABAPENTIN 300 MG CAP PO SCH (20:32)
[2016-11-06] MEDS: hydrOXYzine PAMOATE 25 MG CAP PO SCH ×5 (00:15→23:44)
[2016-11-06] MEDS: HYDROcodone/APAP 7.5-325MG 1 EACH TAB PO PRN ×6 (01:17→21:44)
[2016-11-06] MEDS: traMADol 50 MG TAB PO PRN ×3 (03:22→20:11)
[2016-11-06] MEDS: LEVOTHYROXINE 88 MCG TAB PO SCH (05:41)
[2016-11-06 06:58] LABS: Glucose,Whole Blood 110 mg/dL (75-99)
[2016-11-06] MEDS: CEFUROXIME 250 MG TAB PO SCH ×2 (08:12→20:11)
[2016-11-06] MEDS: metFORMIN 500 MG TAB PO SCH ×2 (08:12→20:11)
[2016-11-06] MEDS: LINAGLIPTIN 5 MG TABLET PO SCH (08:13)
[2016-11-06] MEDS: SENNOSIDES-DOCUSATE SODIUM 1 EACH TAB PO SCH (08:13)
[2016-11-06] MEDS: GABAPENTIN 300 MG CAP PO SCH ×2 (08:13→20:11)
[2016-11-06] MEDS: APIXABAN 5 MG TAB PO SCH ×2 (08:13→20:11)
[2016-11-06] MEDS: FAMOTIDINE 20 MG TAB PO SCH (08:13)
[2016-11-06] MEDS ORDERED: NON-FORMULARY DRUG (Vilazodone Hcl [Viibryd] 40 MG) PO SCH (09:00)
[2016-11-06] MEDS ORDERED: ENOXAPARIN 40 MG/0.4 ML SYRINGE SQ SCH (09:00)
--- NOTE | 2016-11-06 10:56 | P.CNOR ---
History of Present Illness - [facility] Consult date: 11/06/16 Consult reason: joint pain History of present illness: 61-year-old patient admitted status post syncopal episode and fall on 11/05/16. Patient is chronically complaining of right knee pain and right foot pain. Patient has history of right total knee arthroplasty performed on 10/18/16. Patient had been diagnosed with pulmonary embolus on 10/23/16. Patient states that she was ambulating with a walker and otherwise doing quite well up until her fall yesterday. Patient states she had good range of motion of her knee until her fall. Patient is complaining of right knee pain and right foot pain. Patient denies any groin pain and back pain or other orthopedic complaints at this time. Past Medical History Past Medical History: Asthma, Diabetes Mellitus, Osteoarthritis (OA), Pulmonary Embolus (PE) Additional Past Medical History / Comment(s): Questionable history of asthma, placed at one point on albuterol, but she doesn't take it on a regular basis. PE in lung History of Any Multi-Drug Resistant Organisms: None Reported Past Surgical History: Bariatric Surgery, Section, Cholecystectomy, Hernia Repair, Joint Replacement, Orthopedic Surgery Additional Past Surgical History / Comment(s): ABDOMINALPLASTY , SKIN REMOVED FROM UPPER LEGS,GASTRIC SLEEVE, STOMACH STAPLING, TOTAL LEFT KNEE, CATARACT SURGERY WITH IMPLANTS-BILATERAL Past Anesthesia/Blood Transfusion Reactions: No Reported Reaction Smoking Status: Never smoker - Past Family History Sister(s) Family Medical History: Deep Vein Thrombosis (DVT) Medications and Allergies Home Medications Medication Instructions Recorded Confirmed Type Vilazodone HCl [Viibryd] 40 mg PO DAILY 09/28/13 11/05/16 History metFORMIN HCL 1,000 mg PO BID 09/28/13 11/05/16 History rOPINIRole HCL [Requip] 1 mg PO QID 09/28/13 11/05/16 History Albuterol Inhaler [Ventolin Hfa 1 - 2 puff INHALATION RT-Q6H PRN 10/14/16 History Inhaler] Canagliflozin [Invokana] 300 mg PO DAILY 10/14/16 11/05/16 History Gabapentin [Neurontin] 300 mg PO BID 10/14/16 11/05/16 History Insulin Glargine,Hum.rec.anlog 35 units SQ DAILY@1200 10/14/16 11/05/16 History [Mayurreshma Castaneda] Liraglutide [Victoza 2-John] 1.2 mg SQ DAILY@1200 10/14/16 11/05/16 History sitaGLIPtin [Januvia] 100 mg PO DAILY 10/14/16 11/05/16 History Levothyroxine Sodium [Synthroid] 88 mcg PO DAILY 10/18/16 11/05/16 History Famotidine [Pepcid] 20 mg PO DAILY #30 tablet 10/21/16 11/05/16 Rx hydrOXYzine PAMOATE [Vistaril] 25 mg PO Q6HR #40 capsule 10/21/16 11/05/16 Rx traMADol HCl [Ultram] 50 mg PO Q6H PRN #40 tab 10/21/16 11/05/16 Rx HYDROcodone/APAP 7.5-325MG [[place] 1 - 2 tab PO Q6HR PRN 10/22/16 11/05/16 History 7.5-325] Sennosides-Docusate Sodium 1 tab PO DAILY #1 tablet 10/24/16 11/05/16 Rx [Senokot-S] Apixaban [Eliquis] 5 mg PO BID 11/05/16 11/05/16 History Allergies Allergy/AdvReac Type Severity Reaction Status Date / Time adhesive tape Allergy Rash/Hives Verified 11/05/16 11:23 Physical Examination Osteopathic Statement: *. No significant issues noted on an osteopathic structural exam other than those noted in the History and Physical/Consult. - Knee right Appearance: ecchymosis (Medially), previous incision (Well-healed without evidence for infective process) Tenderness with palpation: medial Pain: with extension ROM: extension: -35 degrees ROM: flexion: 80 degrees Strength: extension: 2/5 Strength: flexion: 4/5 - Ankle & Foot right Foot appearance: contusion (Dorsal great toe) Tenderness with palpation: other (Dorsal right great toe) Ankle alignment: normal Full ROM: yes Results - Labs Labs: Abnormal Lab Results - Last 24 Hours (Table) 11/05/16 11/05/16 11/05/16 Range/Units 11:58 17:01 20:22 POC Glucose (mg/dL) 127 H 122 H 159 H (75-99) mg/dL 11/06/16 Range/Units 06:57 POC Glucose (mg/dL) 110 H (75-99) mg/dL Microbiology - Last 24 Hours (Table) 11/05/16 04:28 Urine Culture - Preliminary Urine,Voided H & H 11/05/16 Range/Units 04:12 Hgb 13.1 (11.4-16.0) gm/dL Hct 41.8 (34.0-46.0) % Coagulation 11/05/16 Range/Units 04:12 INR 1.0 (<1.2) Result Diagrams: 11/05/16 04:12 11/05/16 04:12 - Diagnostic results Knee x-ray: report reviewed, image reviewed Ankle/Foot x-ray: report reviewed, image reviewed Assessment and Plan Plan: Impression; 1. Right knee sprain status post total knee arthroplasty 2. Right foot great toe contusion Plan: 1. Will obtain dedicated x-rays of the right knee-3 views 2. Will consult physical therapy for walker ambulation Time with Patient: Less than 30
[2016-11-06 11:53] LABS: Glucose,Whole Blood 196 mg/dL (75-99)
[2016-11-06] MEDS ORDERED: NON-FORMULARY DRUG (Liraglutide [Victoza 2-Pak] 1.2 MG) SQ SCH (12:00)
[2016-11-06] MEDS: INSULIN GLARGINE 100 UNIT/ML 10 ML VIAL SQ SCH (12:44)
--- NOTE | 2016-11-06 13:07 | XR ---
EXAMINATION TYPE: XR knee complete RT , 3 VIEWS DATE OF EXAM ORDERED: 11/06/2016 HISTORY: Right knee pain . COMPARISON: Previous study dated 11/05/2016. FINDINGS: There is a right knee prosthesis in place. Prosthetic elements appear in good position. I do not see radiographic evidence of loosening. IMPRESSION: STATUS POST RIGHT KNEE ARTHROPLASTY.
[2016-11-06 16:57] LABS: Glucose,Whole Blood 168 mg/dL (75-99)
--- NOTE | 2016-11-06 18:49 | P.PN ---
Progress Note - Text DATE OF SERVICE: 11/06/2016 PRESENTING COMPLAINT: Fall HISTORY OF PRESENT ILLNESS: 61-year-old female who recently underwent a right total knee arthroplasty, was readmitted and found to have a pulmonary embolism, was treated but on oxygen and discharged home. Patient felt asleep in a chair and dozed off around 2 AM she decided to go to her bedroom to the couple of steps and lost her balance and fell and developed pain around the operative knee site and came for further evaluation. INTERVAL HISTORY: 11/06/2016: Patient lying in bed appears comfortable. Right knee continues to be painful, x -rays completed per orthopedics. Tolerating her diet, ambulatory with assistance of a walker. Last BM prior to admission. REVIEW OF SYSTEMS: Done for constitutional ,cardiovascular, GI, pulmonary with relevant findings as above. CURRENT MEDICATIONS [place], Eliquis, Ceftin, Pepcid, Neurontin, Vistaril, Lantus, Synthroid, leuko-5 , Requip, Senokot, Ultram. PHYSICAL EXAM VITAL SIGNS: Temperature 99.0, respirations 18, pulse 84, blood pressure 153/63, oxygen saturation 98% on 2 L GENERAL APPEARANCE: Lying in bed, comfortable appearing. EYES: Pupils equal. Conjunctiva normal. NECK: JVD not raised. Mass not palpable. RESPIRATORY: Respiratory effort normal. Lungs diminished to auscultation. CARDIOVASCULAR: First and second sounds normal. No edema. ABDOMEN: Soft. Liver and spleen not palpable. No tenderness. No mass palpable. PSYCHIATRY: Alert and oriented x3. Mood and affect normal. EXTREMITIES: Right knee incision healing well, minimal tenderness, some bruising of the left foot. INVESTIGATIONS: LABS: Accu-Cheks noted X-rays of the right knee/3 views: Right knee prosthesis in place, prosthetic elements appear in good position. ASSESSMENT: -Status post fall secondary to being sleepy while walking. -Acute urinary tract infection -Recent right total knee arthroplasty. -Primary osteoarthritis of multiple joints, bilateral. -Depression not otherwise specified. -Diabetes mellitus type 2 chronically on insulin. -Chronic restless leg syndrome. -Morbid obesity BMI 46.5. -Chronic hypoxic respiratory failure due to underlying chronic restrictive lung disease and obesity hypoventilation syndrome. -Acute pulmonary embolism, PE occurred on 10/22/2016 currently on Xarelto -Subacute nondisplaced fracture within the third proximal phalanx PLAN: Continue pain management, patient to work with physical therapy, continue antibiotics for UTI. Plan of care discussed with patient and family at the bedside there in agreement. We will continue to follow. CLUB DIRECTOR statement: Patient was seen and examined by nurse practitioner Martha Casper and all elements of the case discussed with attending Dr. Moran
[2016-11-06 20:37] LABS: Glucose,Whole Blood 305 mg/dL (75-99)
[2016-11-07] MEDS: HYDROcodone/APAP 7.5-325MG 1 EACH TAB PO PRN ×3 (01:37→09:41)
[2016-11-07] MEDS: traMADol 50 MG TAB PO PRN (02:14)
[2016-11-07] MEDS: LEVOTHYROXINE 88 MCG TAB PO SCH (04:58)
[2016-11-07] MEDS: hydrOXYzine PAMOATE 25 MG CAP PO SCH ×2 (04:59→12:58)
[2016-11-07 06:51] LABS: Glucose,Whole Blood 132 mg/dL (75-99)
--- NOTE | 2016-11-07 07:36 | PN ---
PROGRESS NOTE DATE OF SERVICE: 11/06/2016 ATTENDING NOTE: This patient was seen and examined by me. I discussed with my nurse practitioner, Ms. Casper. Patient presented with fall, seen by Dr. Lopez today. X-ray of the knee does not show any periprosthetic fracture. Patient is comfortable. PHYSICAL EXAM: Lungs are clear. Cardiovascular first and second sounds normal. INVESTIGATIONS: Accu-Cheks are noted. ASSESSMENT: Injury to the right knee, secondary to fall. No fracture. PLAN: PT, OT is consulted. Other medical treatments to continue. Care was discussed with the patient and . MMODL / IJN: [id number] /
[2016-11-07 08:05] VITALS: BP 118/51; PULSE 77; RESP 18; TEMP 98.9
[2016-11-07] MEDS: GABAPENTIN 300 MG CAP PO SCH (09:34)
[2016-11-07] MEDS: metFORMIN 500 MG TAB PO SCH (09:34)
[2016-11-07] MEDS: LINAGLIPTIN 5 MG TABLET PO SCH (09:34)
[2016-11-07] MEDS: FAMOTIDINE 20 MG TAB PO SCH (09:34)
[2016-11-07] MEDS: SENNOSIDES-DOCUSATE SODIUM 1 EACH TAB PO SCH (09:34)
[2016-11-07] MEDS: CEFUROXIME 250 MG TAB PO SCH (09:35)
[2016-11-07] MEDS: APIXABAN 5 MG TAB PO SCH (09:35)
[2016-11-07 11:54] LABS: Glucose,Whole Blood 128 mg/dL (75-99)
[2016-11-07] MEDS: INSULIN GLARGINE 100 UNIT/ML 10 ML VIAL SQ SCH (12:59)
--- NOTE | 2016-11-07 13:45 | P.PN ---
Subjective Principal diagnosis: Right knee pain, recent right knee total arthroplasty, recent history of fall Patient seen today resting in her hospital bed. she notes some increasing pain throughout the knee and the great toe. X-rays are negative for any fractures of the right toe. X-rays also revealed a stable right total knee arthroplasty. She's noticed a lack of motion today, more painful with ambulation. Objective - Vital Signs Vital signs: Vital Signs Temp 98.9 F 11/07/16 08:00 Pulse 77 11/07/16 12:00 Resp 18 11/07/16 12:00 BP 118/51 11/07/16 08:00 Pulse Ox 95 11/07/16 08:00 Intake & Output 11/06/16 11/07/16 11/07/16 18:59 06:59 18:59 Intake Total 250 1020 Balance 250 1020 Intake: Oral 250 1020 Other: Voiding Method Toilet Bedside Commode Bedside Commode Bedpan # Voids 1 1 - Exam Right lower extremity: No obvious effusion present on the knee. There is ecchymosis more over the anterior medial aspect of the knee, also on the posterior lateral side. Patient is able to flex to about 90. She has a very difficult time extending the knee. Calf is soft, no tenderness with palpation. Plantar flexion, dorsiflexion, EHL, FHL are intact. Minimal ecchymosis noted over the great toe , she is tender around the MTP joint. Dorsal pedis pulses 2+, her sensory exam light touch is intact - Labs CBC & Chem 7: 11/05/16 04:12 11/05/16 04:12 Labs: Abnormal Lab Results - Last 24 Hours (Table) 11/06/16 11/06/16 11/07/16 Range/Units 16:55 20:31 06:49 POC Glucose (mg/dL) 168 H 305 H 132 H (75-99) mg/dL 11/07/16 Range/Units 11:52 POC Glucose (mg/dL) 128 H (75-99) mg/dL Microbiology - Last 24 Hours (Table) 11/05/16 04:28 Urine Culture - Final Urine,Voided Escherichia coli Assessment and Plan Plan: Assessment: 1. Right knee pain/strain 2. Recent history of right total knee arthroplasty 3. Pulmonary embolism 4. Recent history of fall Plan: On orthopedic standpoint, patients total knee arthroplasty remains stable. Recommend weight-bear as tolerated. Utilize pain medication as needed. Recommend icing the knee often. Other medical editor recommendations Patient scheduled to see Dr. Soriano in the office later this week Time with Patient: Less than 30
--- NOTE | 2016-11-07 20:58 | DS ---
DISCHARGE SUMMARY FINAL DIAGNOSES: 1. Blunt injury to the right periprosthetic knee arthroplasty secondary to a slip and fall. 2. Primary osteoarthritis of multiple joints bilateral. 3. Depression, not otherwise specified. 4. Diabetes mellitus type 2, chronically on insulin. 5. Chronic restless legs syndrome. 6. Morbid obesity. Body mass index of 46.5. 7. Chronic hypoxic respiratory failure due to underlying chronic restrictive lung disease and obesity hypoventilation syndrome. 8. Acute pulmonary embolism, pulmonary embolism being on October 22, 2016, currently on Xarelto. 9. Acute nondisplaced fracture within the proximal third phalanx of the right foot. 10.Acute urinary tract infection from Escherichia coli. HOSPITAL COURSE: A 61-year-old patient underwent a right total knee arthroplasty recently around October 21, 2016. Then she presented on October 22, 2016, with acute PE. At home in the night patient took a missed step and had a fall with some injury to the right knee that was replaced. No fracture was noted. Some bruising because patient is on anticoagulation. She also has some nondisplaced fracture of the foot. The patient was seen by Dr. Lopez from Orthopedics, with whom I talked today. The patient is okay to be discharged. The patient otherwise is recovering well from her surgery. Care was discussed with the patient and her . Questions were answered. EXAMINATION: LUNGS: Distant. Clear to auscultation. CARDIOVASCULAR: First and second sounds normal. DISCHARGE MEDICATIONS: 1. Viibryd 40 mg p.o. daily. 2. Metformin 1000 mg p.o. b.i.d. 3. Requip 1 mg p.o. q.i.d. 4. Ventolin HFA 1 to 2 puffs every 6 hours p.r.n. 5. Invokana 10 mg p.o. daily. 6. Neurontin 300 mg p.o. b.i.d. 7. Insulin 35 units subcutaneously daily. 8. Victoza subcutaneous daily. 9. Januvia 100 mg p.o. daily. 10.Synthroid 88 mcg p.o. daily. 11.Pepcid 20 mg p.o. daily. 12.Vistaril 25 mg every 6 hours p.r.n. 13.Ultram 50 mg p.o. every 6 hours p.r.n. 14.[place] 7.5, 1 to 2 tablets every 6 hours p.r.n. 15.Senokot S 1 tablet p.o. daily. 16.Eliquis 5 mg p.o. b.i.d. 17.Bactrim DS 1 tab p.o. every 12, 10 tablets. FOLLOWUP: 1. Follow up with Dr. Soriano in 3 days. 2. Follow up with Dr. Montilla in 1 week. 3. Orthopedic instructions to continue. Discussion/discharge planning more than 35 minutes. MMODL / IJN: [id number] /
== END 2016-11-07 15:25 | disposition home or self-care (01) ==
LOC: EC 03:26 → 3OBS 06:06
PROVIDERS: ADMIT Hospitalist; ATTEND Hospitalist
DX: R55 Syncope and collapse (principal); N39.0 Urinary tract infection, site not specified; I26.99 Other pulmonary embolism without acute cor pulmonale; J45.909 Unspecified asthma, uncomplicated; E11.9 Type 2 diabetes mellitus without complications; J96.11 Chronic respiratory failure with hypoxia; G25.81 Restless legs syndrome; Z68.42 Body mass index [BMI] 45.0-49.9, adult; E66.2 Morbid (severe) obesity with alveolar hypoventilation; E03.9 Hypothyroidism, unspecified; F32.9 Major depressive disorder, single episode, unspecified; S92.514A Nondisplaced fracture of proximal phalanx of right lesser toe(s), initial encounter for closed fracture; W10.9XXA Fall (on) (from) unspecified stairs and steps, initial encounter; S83.91XA Sprain of unspecified site of right knee, initial encounter; M15.9 Polyosteoarthritis, unspecified; B96.20 Unspecified Escherichia coli [E. coli] as the cause of diseases classified elsewhere; Z79.4 Long term (current) use of insulin; Z79.84 Long term (current) use of oral hypoglycemic drugs; Z79.899 Other long term (current) drug therapy; Z79.01 Long term (current) use of anticoagulants; Z91.048 Other nonmedicinal substance allergy status; Z99.81 Dependence on supplemental oxygen; Z96.651 Presence of right artificial knee joint
CPT/HCPCS: 96374; 96375; 99285; 36415; 93005; 97162; 80053; 82550; 82553; 84484; 85025; 85610; 85730; 81001; 87086; 87077; 87186; 71020; 73590; 73562; 73630; G0378 ×3; J2060; J1170

== ENCOUNTER → 2016-11-14 | Outpatient (CLI) | payer MEDICARE ==
[2016-11-14 12:35] LABS: Basophils % (A) 0 %; CH 27.6; CHCM 30.6; Eosinophils # (A) 0.2 k/uL (0-0.7); Eosinophils % (A) 3 %; HCT 40.5 % (34.0-46.0); HGB 12.4 gm/dL (11.4-16.0); Hypochromasia Marked; Luc # (Auto) 0.17; Luc % (Auto) 2; Lymphocytes # (A) 2.2 k/uL (1.0-4.8); Lymphocytes % (A) 29 %; MCH 27.7 pg (25.0-35.0); MCHC 30.5 g/dL (31.0-37.0); MCV 90.7 fL (80.0-100.0); Mean Platelet Volume 6.9; Monocytes # (A) 0.7 k/uL (0-1.0); Monocytes % (A) 9 %; Neutrophils # (A) 4.3 k/uL (1.3-7.7); Neutrophils % (A) 57 %; RBC 4.47 m/uL (3.80-5.40); RDW 14.5 % (11.5-15.5); WBC 7.6 k/uL (3.8-10.6); WBC (Perox) 7.82
== END | disposition home or self-care (01) ==
LOC: LABWHC1 12:00
PROVIDERS: ATTEND Orthopaedic Surgery
DX: Z01.812 Encounter for preprocedural laboratory examination (principal); S76.102D Unspecified injury of left quadriceps muscle, fascia and tendon, subsequent encounter; T84.84XD Pain due to internal orthopedic prosthetic devices, implants and grafts, subsequent encounter
CPT/HCPCS: 36415; 85025

== ENCOUNTER 2016-11-15 11:40 | Inpatient (IN) | payer MEDICARE ==
--- NOTE | 2016-11-14 10:38 | HP ---
HISTORY AND PHYSICAL CHIEF COMPLAINT: Right knee pain. HISTORY OF PRESENT ILLNESS: The patient is a 61-year-old female on disability who presents after undergoing right total knee arthroplasty on 10/18/2016 after twisting it on 11/04/2016 with increasing pain. She is having a difficult time weightbearing. She was progressing well prior to that. She did develop a pulmonary embolism in the postoperative phase. PAST MEDICAL HISTORY: Significant for asthma, type 2 diabetes, hypothyroidism, arthritis, and obesity. PAST SURGICAL HISTORY: Significant for bilateral total knee arthroplasty and section. CURRENT MEDICATIONS: 1. Januvia. 2. Mobic. 3. Metformin. 4. Neurontin. 5. Synthroid. 6. Eliquis. 7. [place]. ALLERGIES: She denies drug allergies. FAMILY HISTORY: Significant for stroke and cancer. SOCIAL HISTORY: Negative for current tobacco or alcohol use. REVIEW OF SYSTEMS: Sixteen-point review of systems otherwise reviewed and is noncontributory. PHYSICAL EXAMINATION: On examination, the patient is approximately 5 feet tall, 260 pounds of endomorphic habitus. HEENT exam is nonfocal. Neck is supple. She has painless passive motion of her right hip. On examination the right knee, the incision is healing well. There is no warmth or erythema. She has moderate swelling and ecchymosis along the medial joint line. She is quite tender about the medial joint line in the medial retinaculum. She has marked guarding. Active motion -15 degrees, full extension to 90 degrees of flexion. Extensor strength is approximately 4- over 5. Homans is negative. She does have an antalgic gait pattern. Her distal neurovascular exam appears intact otherwise in the right lower extremity. Two views of the right knee obtained in the office show a total knee arthroplasty in overall good alignment. The patella appears to be laterally displaced. IMPRESSION: 1. Status post right total knee arthroplasty with possible quadriceps strain versus rupture/possible MCL sprain. 2. Obesity. 3. Recent pulmonary emboli. RECOMMENDATIONS: I talked to the patient and her regarding her options at this point. At this point, we will plan to proceed with open exploration and possible retinacular versus quadriceps repair. If there is significant collateral instability, we will consider other options to include revision total knee arthroplasty with a more constrained implant. Risks and benefits were discussed at length in layman's terms. MMODL / IJN: [id number] /
[2016-11-14 10:44] VITALS: BMI 50.8
[~2016-11-15 11:40] MED LIST: ACETAMINOPHEN TAB 500 MG TAB PO ONE; MELOXICAM 7.5 MG TAB PO ONE; TRANEXAMIC ACID 1,000 MG in SODIUM CHLORIDE 0.9% 100 ML IVPB ONE; ceFAZolin 2 GM in SODIUM CHLORIDE 0.9% 100 ML IVPB ONE
[2016-11-15 12:32] LABS: Glucose,Whole Blood 107 mg/dL (75-99)
[2016-11-15] MEDS ORDERED: LACTATED RINGERS 1,000 ML IV ONE ×2 (12:34→16:19)
[2016-11-15] MEDS ORDERED: ONDANSETRON 4 MG/2 ML VIAL IVP ONE (12:35)
[2016-11-15] MEDS ORDERED: LIDOCAINE 1% 20 ML VIAL (10MG/ML) FOR IV START INTRADERMA ONE (12:35)
[2016-11-15] MEDS ORDERED: DEXAMETHASONE SOD PHOSPHATE 10 MG/ML 1 ML VIAL IV ONE (12:36)
[2016-11-15] MEDS ORDERED: ROCURONIUM BROMIDE 10 MG/ML 10 ML VIAL IV ONE (14:26)
[2016-11-15] MEDS ORDERED: PROPOFOL 10 MG/ML 20 ML VIAL IV ONE (14:26)
[2016-11-15] MEDS ORDERED: GLYCOPYRROLATE 0.2 MG/ML 2 ML VIAL ONE (14:26)
[2016-11-15] MEDS ORDERED: fentaNYL (PF) 50 MCG/ML 2 ML AMP ONE (14:26)
[2016-11-15] MEDS ORDERED: LIDOCAINE 1% INJ 10MG/ML (20 ML MDV) ONE (14:26)
[2016-11-15] MEDS ORDERED: HYDROmorphone (PF) 1 MG/ML ONE (14:26)
[2016-11-15] MEDS ORDERED: MIDAZOLAM 2 MG/2 ML VIAL ONE (14:26)
[2016-11-15] MEDS ORDERED: SUCCINYLCHOLINE CHLORIDE VIAL 200 MG/10 ML VIAL IV ONE (14:26)
[2016-11-15] MEDS ORDERED: NEOSTIGMINE 1 MG/ML 10 ML VIAL ONE (14:26)
[2016-11-15] MEDS ORDERED: ceFAZolin 3,000 MG in SODIUM CHLORIDE 0.9% IRRIGATIO 3,000 ML IRRIGATION ONE (15:03)
[2016-11-15] MEDS ORDERED: NALOXONE 0.4 MG/ML 1 ML VIAL IV PRN (16:15)
[2016-11-15] MEDS ORDERED: MAGNESIUM HYDROXIDE 2,400 MG/10 ML CUP PO PRN (16:15)
[2016-11-15] MEDS ORDERED: ONDANSETRON 4 MG/2 ML VIAL IVP PRN (16:15)
[2016-11-15] MEDS ORDERED: ACETAMINOPHEN TAB 325 MG TAB PO PRN (16:15)
[2016-11-15] MEDS ORDERED: HYDROcodone/APAP 7.5-325MG 1 EACH TAB PO PRN (16:15)
[2016-11-15] MEDS ORDERED: traMADol 50 MG TAB PO PRN (16:15)
[2016-11-15 16:17] LABS: Basophils % (A) 0 %; CH 27.6; CHCM 31.1; Eosinophils # (A) 0.1 k/uL (0-0.7); Eosinophils % (A) 1 %; HCT 34.5 % (34.0-46.0); HDW 3.22; HGB 10.8 gm/dL (11.4-16.0); Hypochromasia Moderate; Luc # (Auto) 0.09; Luc % (Auto) 1; Lymphocytes # (A) 1.1 k/uL (1.0-4.8); Lymphocytes % (A) 14 %; MCHC 31.4 g/dL (31.0-37.0); Monocytes # (A) 0.3 k/uL (0-1.0); Monocytes % (A) 3 %; Neutrophils # (A) 6.2 k/uL (1.3-7.7); Neutrophils % (A) 80 %; RBC 3.88 m/uL (3.80-5.40); RDW 14.5 % (11.5-15.5); WBC 7.8 k/uL (3.8-10.6); WBC (Perox) 7.69
--- NOTE | 2016-11-15 16:51 | P.OP ---
Date of Procedure: 11/15/16 Preoperative Diagnosis: Status post right total knee arthroplasty with probable retinacular tear Postoperative Diagnosis: Right knee partial medial retinacular tear/partial MCL sprain with instability Procedure(s) Performed: Revision right knee femoral component, tibial articular surface, and repair medial retinaculum Implants: Vi size 7 cemented femoral component-posterior stabilized, 14 mm posterior stabilized articular surface. Anesthesia: GETA Surgeon: Bayron Soriano Gear Cutting Machine Operator #1: Jai Huff Estimated Blood Loss (ml): 400 Pathology: none sent Condition: stable Disposition: PACU Indications for Procedure: The patient is a 61-year-old female who presented after falling one month after her right total knee arthroplasty with substantial pain and instability. A discussion of the risks and benefits of operative intervention was made with the patient and her family. I informed her we would explore her knee and repair the retinaculum in addition assess stability. Specific risks of surgery to include infection, neurovascular injury, development of blood clots, possible component loosening, possible need for subscap procedures was discussed. Informed consent was obtained. Operative Findings: As below Description of Procedure: The patient was brought to the operating room, and after induction of general anesthesia the right lower extremity was prepped and draped in normal fashion. I examined the right knee. There appeared be some laxity with valgus stress at 0 and 30 of flexion. The tourniquet was inflated to 270 mmHg. The previous midline incision was made extending 3 finger breaths above the superior pole of the patella to the medial aspect of tibial tubercle. The skin and subcutaneous tissues were divided sharply. Electrocautery was used for hemostasis. The medial retinacular repair was inspected and it was noted there was a 4 cm tear involving the anterior medial aspect. The superior medial aspect was intact. On further deep inspection a grade 2 tear involving the deep portion of the medial collateral ligament was noted with some valgus laxity and instability. At this point it was elected to proceed with revision of the femoral component and tibial insert to afford more stability. The remainder of the retinaculum was opened along its medial aspect. The articular spacer was then removed. A small sagittal saw was used to break the bone cement interface on the femoral component. This was then extracted without much bone loss. The appropriate size 7 guide was then placed for the box cut. A reciprocating saw was used to make the box cut and the bone was removed in one fragment. The trial component had good medial to lateral and anterior to posterior fit. A 14 mm trial articular surface was placed and the knee was taken through range of motion. I good stability in flexion and extension with varus and valgus stress. The trial components were then removed. The femoral component was then cemented in placed and was fully seated. Excess cement was removed. A trial 14 mm articular surface was placed and the knee was put in full extension. Again there was good stability with varus and valgus stress. After the cement had sufficiently hardened, the trial articular surface was removed and the final one inserted. This was fully seated. Care was taken to avoid any soft tissue interposition. Pulsatile lavage was again utilized. The medial retinaculum was repaired in interrupted fashion using #2 Ethibond suture. A deep drain was placed exiting laterally. The tourniquet was deflated with approximately 1 hour total tourniquet time. The subcutaneous tissues were reapproximated with interrupted 2-0 Vicryl sutures. The skin was reapproximated with 3-0 subcuticular strata fix suture. Skin tape and adhesive was applied. A sterile dressing was applied. The patient was awoken from general anesthesia and transferred to recovery room in good condition. Blood loss was estimated at 400 mL. No complications were incurred. Sponge and needle counts were correct in the case.
[2016-11-15] MEDS: HYDROmorphone 0.5 MG/0.5 ML SYRINGE IVP ONE ×4 (16:58→17:32)
[2016-11-15] MEDS ORDERED: INSULIN LISPRO (humaLOG) 300 UNIT/3 ML VIAL SQ ONE (17:09)
--- NOTE | 2016-11-15 17:09 | XR ---
EXAMINATION TYPE: XR knee limited RT DATE OF EXAM: 11/15/2016 CLINICAL HISTORY: Right knee replacement. TECHNIQUE: Portable AP and crosstable lateral views of the right knee are obtained immediately posto peratively. COMPARISON: Right knee x-ray November 06, 2016 FINDINGS: Metallic hardware from total right knee arthroplasty is redemonstrated and appears satisfa ctory and stable in alignment and position. There is new posterior surgical drain patellofemoral lev el. Subcutaneous edema soft tissue swelling anteriorly is present. IMPRESSION: METALLIC HARDWARE FROM TOTAL RIGHT KNEE ARTHROPLASTY REMAINS SATISFACTORY IN ALIGNMENT.
[2016-11-15 17:10] LABS: Glucose,Whole Blood 215 mg/dL (75-99)
[2016-11-15] MEDS ORDERED: MIDAZOLAM 2 MG/2 ML VIAL IVP ONE (17:14)
[2016-11-15] MEDS: MEPERIDINE 50 MG/ML SYRINGE IVP ONE ×2 (17:39→17:49)
[2016-11-15] MEDS: HYDROcodone/APAP 7.5-325MG 1 EACH TAB PO PRN (19:39)
[2016-11-15] MEDS: GABAPENTIN 300 MG CAP PO SCH (21:24)
[2016-11-15] MEDS: SENNOSIDES-DOCUSATE SODIUM 1 EACH TAB PO SCH (21:24)
[2016-11-15] MEDS: metFORMIN 500 MG TAB PO SCH (21:24)
[2016-11-15] MEDS: HYDROmorphone 1 MG/ML 1 ML SYRINGE IVP PRN (21:25)
[2016-11-16] MEDS: ceFAZolin 2 GM in SODIUM CHLORIDE 0.9% 100 ML IVPB SCH ×2 (00:28→07:25)
[2016-11-16] MEDS: HYDROcodone/APAP 7.5-325MG 1 EACH TAB PO PRN ×4 (02:08→19:00)
[2016-11-16] MEDS: HYDROmorphone 1 MG/ML 1 ML SYRINGE IVP PRN (03:59)
--- NOTE | 2016-11-16 05:15 | CONS ---
CONSULTATION DATE OF CONSULTATION: 11/15/2016 REASON FOR CONSULTATION: Medical management requested by Dr. Soriano. CONSULTATION: This is a very pleasant, 61-year-old patient, who was in the hospital around 10/21/16 under the care of Dr. Soriano. She had undergone right total knee arthroplasty. The patient was then readmitted 10/22/16 with a pulmonary embolism. The patient then was admitted on 11/05/16 after she took a fall at that time. No fracture was detected. The patient was having trouble with weightbearing on the right knee and today underwent MCL repair. Right knee in a dressing. Hemovac is in place. The patient's chronic stable medical conditions include diabetes mellitus type 2, depression, restless leg syndrome, hypothyroid, restrictive lung disease, obesity hypoventilation syndrome. REVIEW OF SYSTEMS: CONSTITUTIONAL: Tired. HEENT: None. RESPIRATORY: Baseline shortness of breath on auscultation. CARDIOVASCULAR: None. GASTROINTESTINAL: None. GENITOURINARY: None. MUSCULOSKELETAL: Pain around the right knee. HEMATOLOGIC: None. LYMPHATIC: None. PSYCHIATRY: Depression, controlled. NEUROLOGICAL: Restless leg syndrome. PAST MEDICAL HISTORY: Diabetes mellitus type 2, osteoarthritis, depression, restless leg syndrome, hypothyroid, restrictive lung disease, obesity hypoventilation syndrome, pulmonary embolism. PAST SURGICAL HISTORY: Bariatric surgery, C section, cholecystectomy, hernia repair, abdominoplasty, skin removed from the left lower leg, gastric sleeve, stomach stapling, left total knee, cataract surgery with implants bilateral, right total knee. SOCIAL HISTORY: . No alcohol, no smoking. FAMILY HISTORY: DVT. ALLERGIES: Allergies to ADHESIVES. HOME MEDICATIONS: 1. Ultram 50 mg q.6 p.r.n. 2. Januvia 100 mg p.o. daily. 3. Requip 1 mg p.o. q.i.d. 4. Metformin 1000 mg p.o. b.i.d. 5. Vistaril 25 mg p.o. q.6. 6. Viibryd 40 mg p.o. daily. 7. Victoza 2 pack 1.8 mg subcutaneously daily. 8. Synthroid 88 mcg p.o. daily. 9. Insulin Glargine 35 units subcutaneously daily. 10.[place] 7.5 one to two tablets q.6 p.r.n. 11.Neurontin 300 mg p.o. b.i.d. 12.Pepcid 20 mg p.o. daily. 13.Invokana 300 mg p.o. daily. 14.Eliquis 5 mg p.o. b.i.d. 15.Ventolin HFA 1 to 2 puffs q.6 p.r.n. PHYSICAL EXAMINATION: On examination, temperature 97.4 pulse 102 respirations 24, blood pressure 173/84, pulse ox 99% on oxygen. GENERAL APPEARANCE: Well built, BMI 50.8. Lying in bed. Nasal cannula in place. EYES; Pupils equal. Conjunctivae normal. HEENT: Oral cavity normal. NECK: JVD unable to assess. Mass not palpable. RESPIRATORY: Effort increased. LUNGS: Distant breath sounds. CARDIOVASCULAR: Heart sounds muffled. No edema. ABDOMEN: Soft, nontender. Liver and spleen not palpable. LYMPHATIC: No lymph node palpable in the neck or axillae. PSYCHIATRY: Alert and oriented x3. Mood and affect normal. EXTREMITIES: Right knee in a dressing with a Hemovac in place. INVESTIGATIONS: White count 7.8, hemoglobin 10.8. ASSESSMENT: 1. Recent pulmonary embolism. Patient on Xarelto. 2. Chronic hypoxic respiratory failure due to underlying chronic restrictive lung disease. 3. Obesity hypoventilation syndrome. 4. Morbid obesity. BMI greater than 50. 5. Chronic restless leg syndrome. 6. Diabetes mellitus type 2, chronically on insulin. 7. Depression, not otherwise specified. 8. Primary osteoarthritis multiple joints, bilateral. 9. Recent right total knee arthroplasty. 10.Right knee surgery on this admission for MCL repair/strain. 11.Hypothyroidism. PLAN: Home medications are resumed. Follow Accu-Cheks. Care was discussed with the patient. Thank you, Dr. Soriano. MMODL / IJN: [id number] /
[2016-11-16] MEDS: LEVOTHYROXINE 88 MCG TAB PO SCH (06:02)
[2016-11-16 06:59] LABS: Basophils % (A) 0 %; CH 28.5; CHCM 31.9; Eosinophils % (A) 1 %; HCT 29.3 % (34.0-46.0); HDW 3.07; Hypochromasia Slight; Luc # (Auto) 0.11; Luc % (Auto) 1; Lymphocytes # (A) 1.8 k/uL (1.0-4.8); Lymphocytes % (A) 22 %; MCH 27.3 pg (25.0-35.0); MCHC 30.5 g/dL (31.0-37.0); MCV 89.6 fL (80.0-100.0); Monocytes # (A) 0.7 k/uL (0-1.0); Monocytes % (A) 8 %; Neutrophils # (A) 5.5 k/uL (1.3-7.7); Neutrophils % (A) 67 %; RBC 3.27 m/uL (3.80-5.40); RDW 15.2 % (11.5-15.5); WBC 8.2 k/uL (3.8-10.6); WBC (Perox) 8.07
[2016-11-16 07:22] LABS: Glucose,Whole Blood 133 mg/dL (75-99)
[2016-11-16] MEDS: INSULIN LISPRO (humaLOG) 300 UNIT/3 ML VIAL SQ SCH ×4 (07:28→21:16)
[2016-11-16] MEDS: metFORMIN 500 MG TAB PO SCH ×2 (07:29→17:52)
[2016-11-16] MEDS: APIXABAN 5 MG TAB PO SCH ×2 (07:29→21:15)
[2016-11-16] MEDS: FAMOTIDINE 20 MG TAB PO SCH (07:29)
[2016-11-16] MEDS: GABAPENTIN 300 MG CAP PO SCH ×2 (07:29→21:15)
[2016-11-16] MEDS: LINAGLIPTIN 5 MG TABLET PO SCH (07:30)
[2016-11-16] MEDS: hydrOXYzine PAMOATE 25 MG CAP PO PRN ×3 (08:02→19:00)
[2016-11-16] MEDS ORDERED: FAMOTIDINE 20 MG TAB PO SCH (09:00)
--- NOTE | 2016-11-16 10:01 | P.PN ---
Subjective Progress Note Date: 11/16/16 Principal diagnosis: Status post revision femoral component of total knee arthroplasty, revision articular surface, medial retinacular repair Patient is seen today resting in her hospital bed, she appears comfortable. Her pain is controlled at this time. She denies any headaches, lightheadedness , chest pain, shortness of breath, fever chills, abdominal discomfort. Objective - Vital Signs Vital signs: Vital Signs Temp 98.3 F 11/16/16 07:00 Pulse 90 11/16/16 08:00 Resp 16 11/16/16 08:00 BP 123/56 11/16/16 07:00 Pulse Ox 98 11/16/16 07:00 Intake & Output 11/15/16 11/16/16 11/16/16 18:59 06:59 18:59 Intake Total 2101 3280 Output Total 825 100 100 Balance 1276 3180 -100 Weight 117.934 kg 117.934 kg Intake: IV 2101 Intake, IV Titration 1000 Amount Lactated Ringers 1,000 ml 1000 As IV .[employer] ONE Rx#: [id number] Oral 2280 Output: Drainage 100 100 Right Knee 100 100 Urine 375 Estimated Blood Loss 450 Other: Voiding Method Indwelling Catheter Indwelling Catheter Indwelling Catheter - Exam Right lower extremity: Incision is clean, dry and intact. There is ecchymosis noted throughout the right lower extremity, surrounding the medial and lateral aspects of the knee and also arranging down and foot. Calf is soft, no tenderness with palpation. Plantar flexion, dorsiflexion, EHL, FHL are intact. Sensory exam to light touch throughout the extremities intact, dorsal pedis pulses 2+. - Labs CBC & Chem 7: 11/16/16 06:40 Labs: Abnormal Lab Results - Last 24 Hours (Table) 11/15/16 11/15/16 11/15/16 Range/Units 12:20 16:05 17:02 RBC (3.80-5.40) m/uL Hgb 10.8 L (11.4-16.0) gm/dL Hct (34.0-46.0) % MCHC (31.0-37.0) g/dL POC Glucose (mg/dL) 107 H 215 H (75-99) mg/dL 11/16/16 11/16/16 Range/Units 06:40 07:19 RBC 3.27 L (3.80-5.40) m/uL Hgb 8.9 L D (11.4-16.0) gm/dL Hct 29.3 L (34.0-46.0) % MCHC 30.5 L (31.0-37.0) g/dL POC Glucose (mg/dL) 133 H (75-99) mg/dL Assessment and Plan Plan: Assessment: 1. Postop day 1 status post revision femoral component total knee arthroplasty , articular surface, repair of medial retinaculum Assessment: 1. Pain control, continue use of oral medication 2. Continue work with physical therapy, weight-bear as tolerated with walker 3. No CPM 4. Ice and elevate/daily dressing changes 5. GI and DVT prophylaxis, continue with [place] 5 mg twice a day 6. Medical recommendations 7. Discharge planning: Patient likely to be discharged home tomorrow Time with Patient: Less than 30
[2016-11-16 11:19] LABS: Glucose,Whole Blood 186 mg/dL (75-99)
[2016-11-16] MEDS: HYDROmorphone 0.5 MG/0.5 ML SYRINGE IVP PRN ×2 (11:35→16:53)
[2016-11-16] MEDS: INSULIN GLARGINE 100 UNIT/ML 10 ML VIAL SQ SCH (12:54)
[2016-11-16 12:57] LABS: Hemoglobin A1C 6.5 % (4.2-6.1)
[2016-11-16 15:46] LABS: HGB 8.9 gm/dL (11.4-16.0)
[2016-11-16 16:59] LABS: Glucose,Whole Blood 167 mg/dL (75-99)
--- NOTE | 2016-11-16 17:46 | P.PN ---
Progress Note - Text Progress Note Date: 11/16/16 DATE OF SERVICE: 11/16/2016 PRESENTING COMPLAINT: Right knee revision HISTORY OF PRESENT ILLNESS: 61-year-old female who underwent right total knee arthroplasty readmitted for pulmonary embolism and then readmitted one more time after a fall. Patient was having difficulty bearing weight on the right knee after discharge and underwent MCL repair. INTERVAL HISTORY: 11/16/2016: Patient lying in bed appears comfortable at the bedside, has some questions regarding discharge planning rehabilitation Center versus discharge to home. Patient's questions answered to the best my ability. Agreeable to work with physical therapy, tolerating her diet eating approximately 50% of her meals anticoagulation needs met with Eliquis and was not stopped prior to surgery. REVIEW OF SYSTEMS: Done for constitutional ,cardiovascular, GI, pulmonary with relevant findings as above. CURRENT MEDICATIONS [place], Eliquis Neurontin, Vistaril, Synthroid, for [employer]ent[employer], Glucophage. PHYSICAL EXAM VITAL SIGNS: Temperature 98.3, pulse 90, respiratory rate 16, blood pressure 123/56, oxygen saturation 98% on 2 L GENERAL APPEARANCE: Lying in bed, not in distress. EYES: Pupils equal. Conjunctiva normal. NECK: JVD not raised. Mass not palpable. RESPIRATORY: Respiratory effort normal. Lungs clear to auscultation. CARDIOVASCULAR: First and second sounds normal. No edema. ABDOMEN: Soft. Liver and spleen not palpable. No tenderness. No mass palpable. PSYCHIATRY: Alert and oriented x3. Mood and affect normal. MUSCULOSKELETAL: Right knee with a dressing in place swelling noted, INVESTIGATIONS: Hemoglobin 8.9, Accu-Cheks noted. Hemoglobin A1c 6.5. ASSESSMENT: -Right knee surgery on this admission for MCL repair/strain. -Recent total knee arthroplasty. -Recent pulmonary embolism. Patient on Xarelto. -Chronic hypoxic respiratory failure due to underlying restrictive lung disease. -Obesity hypoventilation syndrome. -Morbid obesity BMI greater than 50 -Chronic left restless leg syndrome. -Diabetes mellitus type 2 chronically on insulin. -Depression, not otherwise specified. -Primary osteoarthritis multiple joints bilateral. -Hypothyroidism. PLAN: Continue current course per orthopedic recommendations, anticoagulation needs met with Xareladelaida, continue current medication and treatment plan. discharge planning potentially for rehab. Plan of care discussed with the patient and at the bedside they are in agreement. All questions answered to the best of my ability. ARMATURE WINDER HELPER REPAIR statement: Patient was seen and examined by nurse practitioner Martha Casper and all elements of the case discussed with attending Dr. Moran
--- NOTE | 2016-11-16 18:07 | PN ---
PROGRESS NOTE DATE OF SERVICE: 11/16/16. This patient seen examined by me. I discussed with my nurse. Ms. Casper. The patient is status post surgery of the right knee. Including MCL repair. Lying in bed, comfortable. Tolerating a diet. No chest pain. PHYSICAL EXAMINATION: LUNGS: Decreased breath sounds. Cardiovascular. HEART: Sounds muffled. INVESTIGATIONS: Hemoglobin 8.9, Accu-Cheks are noted. PLAN: Care was discussed with the patient. Accu-Cheks to follow. The patient back on Eliquis for anticoagulation for recent pulmonary embolism. Care was discussed with the patient and with Dr. Soriano at the bedside. The patient's Hemovac has been discontinued from the right knee. The patient looking to go to the [facility]. RAMAN / IJN: [id number] /
[2016-11-16 19:54] LABS: Glucose,Whole Blood 201 mg/dL (75-99)
[2016-11-16] MEDS: SENNOSIDES-DOCUSATE SODIUM 1 EACH TAB PO SCH (21:15)
[2016-11-17] MEDS: HYDROcodone/APAP 7.5-325MG 1 EACH TAB PO PRN ×4 (01:30→19:12)
[2016-11-17] MEDS: hydrOXYzine PAMOATE 25 MG CAP PO PRN ×4 (01:31→19:13)
[2016-11-17] MEDS: LEVOTHYROXINE 88 MCG TAB PO SCH (06:05)
[2016-11-17 07:24] LABS: Glucose,Whole Blood 179 mg/dL (75-99)
[2016-11-17] MEDS: GABAPENTIN 300 MG CAP PO SCH ×2 (07:47→21:10)
[2016-11-17] MEDS: FAMOTIDINE 20 MG TAB PO SCH (07:48)
[2016-11-17] MEDS: APIXABAN 5 MG TAB PO SCH ×2 (07:48→21:11)
[2016-11-17] MEDS: metFORMIN 500 MG TAB PO SCH ×2 (07:48→17:41)
[2016-11-17] MEDS: LINAGLIPTIN 5 MG TABLET PO SCH (07:48)
[2016-11-17] MEDS: INSULIN LISPRO (humaLOG) 300 UNIT/3 ML VIAL SQ SCH ×4 (08:32→21:11)
[2016-11-17 11:04] LABS: Glucose,Whole Blood 227 mg/dL (75-99)
--- NOTE | 2016-11-17 11:05 | P.PN ---
Subjective Progress Note Date: 11/17/16 Principal diagnosis: Status post revision femoral component of total knee arthroplasty, revision articular surface, medial retinacular repair Patient is seen today resting in her hospital bed, she appears comfortable. Her pain is controlled at this time. She denies any headaches, lightheadedness , chest pain, shortness of breath, fever chills, abdominal discomfort. Objective - Vital Signs Vital signs: Vital Signs Temp 98.9 F 11/17/16 07:56 Pulse 88 11/17/16 07:00 Resp 16 11/17/16 07:53 BP 117/56 11/17/16 07:00 Pulse Ox 98 11/17/16 10:35 Intake & Output 11/16/16 11/17/16 11/17/16 18:59 06:59 18:59 Intake Total 474 540 Output Total 500 1250 Balance -26 -710 Weight 117.934 kg Intake: Oral 474 540 Output: Drainage 100 Right Knee 100 Urine 400 1250 Uretheral ([place]) 400 Other: Voiding Method Toilet Bedside Commode Toilet Bedside Commode # Voids 1 1 1 - Exam Right lower extremity: Incision is clean, dry and intact. There is ecchymosis noted throughout the right lower extremity, surrounding the medial and lateral aspects of the knee and also arranging down and foot. Calf is soft, no tenderness with palpation. Plantar flexion, dorsiflexion, EHL, FHL are intact. Sensory exam to light touch throughout the extremities intact, dorsal pedis pulses 2+. - Labs CBC & Chem 7: 11/16/16 06:40 Labs: Abnormal Lab Results - Last 24 Hours (Table) 11/16/16 11/16/16 11/16/16 Range/Units 06:40 06:40 11:14 Hgb 8.9 L D (11.4-16.0) gm/dL POC Glucose (mg/dL) 186 H (75-99) mg/dL Hemoglobin A1c 6.5 H (4.2-6.1) % 11/16/16 11/16/16 11/17/16 Range/Units 16:56 19:46 07:21 Hgb (11.4-16.0) gm/dL POC Glucose (mg/dL) 167 H 201 H 179 H (75-99) mg/dL Hemoglobin A1c (4.2-6.1) % 11/17/16 Range/Units 10:42 Hgb (11.4-16.0) gm/dL POC Glucose (mg/dL) 227 H (75-99) mg/dL Hemoglobin A1c (4.2-6.1) % Assessment and Plan Plan: Assessment: 1. Postop day #2 status post revision femoral component total knee arthroplasty , articular surface, repair of medial retinaculum Assessment: 1. Pain control, continue use of oral medication 2. Continue work with physical therapy, weight-bear as tolerated with walker 3. No CPM 4. Ice and elevate/daily dressing changes 5. GI and DVT prophylaxis, continue Eliquis 5 mg twice a day 6. Medical recommendations 7. Discharge planning: planning for discharge to rehab facility tomorrow Time with Patient: Less than 30
[2016-11-17] MEDS: INSULIN GLARGINE 100 UNIT/ML 10 ML VIAL SQ SCH (12:35)
--- NOTE | 2016-11-17 16:08 | PN ---
PROGRESS NOTE DATE OF SERVICE: 11/17/2016. ATTENDING NOTE: This patient is seen and examined by me. I discussed with my nurse practitioner, Ms. Casper. The patient is doing better, sitting up, looking to go to inpatient rehab. Breathing is stable. EXAM: LUNGS: Fair air entry and distant breath sounds. CARDIOVASCULAR: Heart sounds muffled. ABDOMEN: Soft, nontender. INVESTIGATIONS: Accu-Cheks are noted. ASSESSMENT: Status post right knee surgery for MCL repair. Other medical conditions stable. Care was discussed with the patient and at the bedside. Follow. MMODL / IJN: [id number] /
[2016-11-17] MEDS ORDERED: INSULIN GLARGINE 100 UNIT/ML 10 ML VIAL SQ SCH (16:32)
--- NOTE | 2016-11-17 16:37 | P.PN ---
Progress Note - Text Progress Note Date: 11/17/16 DATE OF SERVICE: 11/17/2016 PRESENTING COMPLAINT: Right knee revision HISTORY OF PRESENT ILLNESS: 61-year-old female who underwent right total knee arthroplasty readmitted for pulmonary embolism and then readmitted one more time after a fall. Patient was having difficulty bearing weight on the right knee after discharge and underwent MCL repair. INTERVAL HISTORY: 11/17/2016: Patient sitting her recliner appears very comfortable. blood glucose has been elevated, Lantus adjusted. Agreeable to work with physical therapy states her knee feels much improved from admission. Tolerating her diet eating 100% of her meals, ambulatory with a walker and some standby assistance.anticoagulation needs are being met with Eliquis. 11/16/2016: Patient lying in bed appears comfortable at the bedside, has some questions regarding discharge planning rehabilitation Center versus discharge to home. Patient's questions answered to the best my ability. Agreeable to work with physical therapy, tolerating her diet eating approximately 50% of her meals anticoagulation needs met with Eliquis and was not stopped prior to surgery. REVIEW OF SYSTEMS: Done for constitutional ,cardiovascular, GI, pulmonary with relevant findings as above. CURRENT MEDICATIONS [place], Eliquis Neurontin, Vistaril, Synthroid, for [employer]ent[employer], Glucophage, Lantus PHYSICAL EXAM VITAL SIGNS: temperature 98.9, respiratory rate 16, blood pressure 126/67, oxygen saturation 98% on room air. GENERAL APPEARANCE: Lying in bed, not in distress. EYES: Pupils equal. Conjunctiva normal. NECK: JVD not raised. Mass not palpable. RESPIRATORY: Respiratory effort normal. Lungs clear to auscultation. CARDIOVASCULAR: First and second sounds normal. No edema. ABDOMEN: Soft. Liver and spleen not palpable. No tenderness. No mass palpable. PSYCHIATRY: Alert and oriented x3. Mood and affect normal. MUSCULOSKELETAL: Right knee with a dressing in place swelling noted, INVESTIGATIONS: Accu-Cheks noted ASSESSMENT: -Right knee surgery on this admission for MCL repair/strain. -Recent total knee arthroplasty. -Recent pulmonary embolism. Patient on Xarelto. -Chronic hypoxic respiratory failure due to underlying restrictive lung disease. -Obesity hypoventilation syndrome. -Morbid obesity BMI greater than 50 -Chronic left restless leg syndrome. -Diabetes mellitus type 2 chronically on insulin. -Depression, not otherwise specified. -Primary osteoarthritis multiple joints bilateral. -Hypothyroidism. PLAN: Continue current course per orthopedic recommendations, anticoagulation needs met with Xarelto, continue current medication and treatment plan. discharge planning for rehab. Plan of care discussed with the patient and at the bedside they are in agreement. All questions answered to the best of my ability. PRODUCT MARKETING DIRECTOR statement: Patient was seen and examined by nurse practitioner Martha Casper and all elements of the case discussed with attending Dr. Moran
[2016-11-17 17:34] LABS: Glucose,Whole Blood 149 mg/dL (75-99)
[2016-11-17 20:18] LABS: Glucose,Whole Blood 159 mg/dL (75-99)
[2016-11-17] MEDS: SENNOSIDES-DOCUSATE SODIUM 1 EACH TAB PO SCH (21:10)
[2016-11-18] MEDS: hydrOXYzine PAMOATE 25 MG CAP PO PRN ×3 (01:03→11:13)
[2016-11-18] MEDS: HYDROcodone/APAP 7.5-325MG 1 EACH TAB PO PRN ×3 (01:03→11:13)
[2016-11-18] MEDS: LEVOTHYROXINE 88 MCG TAB PO SCH (06:04)
[2016-11-18 07:07] LABS: Glucose,Whole Blood 134 mg/dL (75-99)
[2016-11-18 07:19] LABS: Basophils % (A) 1 %; CH 27.7; CHCM 30.3; Eosinophils # (A) 0.1 k/uL (0-0.7); Eosinophils % (A) 2 %; HCT 28.5 % (34.0-46.0); HDW 3.14; HGB 8.7 gm/dL (11.4-16.0); Hypochromasia Marked; Luc % (Auto) 2; Lymphocytes # (A) 1.8 k/uL (1.0-4.8); Lymphocytes % (A) 31 %; MCHC 30.6 g/dL (31.0-37.0); MCV 91.7 fL (80.0-100.0); Mean Platelet Volume 6.8; Monocytes # (A) 0.4 k/uL (0-1.0); Monocytes % (A) 6 %; Neutrophils # (A) 3.4 k/uL (1.3-7.7); Neutrophils % (A) 58 %; RBC 3.11 m/uL (3.80-5.40); WBC 5.9 k/uL (3.8-10.6); WBC (Perox) 5.94
[2016-11-18] MEDS: INSULIN LISPRO (humaLOG) 300 UNIT/3 ML VIAL SQ SCH ×2 (07:55→12:37)
[2016-11-18] MEDS: APIXABAN 5 MG TAB PO SCH (07:56)
[2016-11-18] MEDS: GABAPENTIN 300 MG CAP PO SCH (07:56)
[2016-11-18] MEDS: LINAGLIPTIN 5 MG TABLET PO SCH (07:56)
[2016-11-18] MEDS: FAMOTIDINE 20 MG TAB PO SCH (07:56)
[2016-11-18] MEDS: metFORMIN 500 MG TAB PO SCH (07:56)
--- NOTE | 2016-11-18 08:02 | P.DS ---
Providers Date of admission: 11/15/16 11:40 Expected date of discharge: 11/18/16 Attending physician: Bayron Soriano Consults: 11/15/16 16:19 Consult Physician Routine Consulting Provider: Ronni Moran Consult Reason/Comments: Medical Management Do you want consulting provider notified?: Yes Primary care physician: [facility] Hospital Course: Date of admission: 11/15/2016 Date of discharge: 11/18/2016 Admission diagnosis: Status post revision femoral component right total knee arthroplasty, replace articular surface, medial retinacular repair Discharge diagnosis: Same Attending physician: Dr. Soriano Surgical procedures: Revision femoral component right total knee arthroplasty, replace articular surface, medial retinacular repair Brief history: Patient is a 61-year-old female who was recently admitted to [facility] for revision type surgery on her right knee. Patient had initially underwent a right total knee arthroplasty on 10/18/2016. She was seen in the outpatient setting of her 2 week appointment and was doing very good. She did have a fall at her home on 11/05/2016, she reported back to the hospital. Images demonstrated no acute fractures or dislocations at that time. She was discharged home after a few days and followed up with Dr. Soriano in the outpatient setting. Further imaging test were done, there is concern over a possible quadriceps tendon tear versus medial retinacular tear. Due to the patient's symptoms and physical exam findings, she was scheduled for revision surgery on 11/15/2016. Hospital course: Details of patient's surgery can be found in operative report. Patient tolerated the procedure well and was subsequently transported to orthopedic floor. Patient's orthopeidc and medical care was provided daily. Patient had daily laboratory tests performed for evaluation of overall blood counts. Patient had daily physical therapy to include strengthening range of motion as well as education with walker ambulation. Patient was treated with Eliquis for their postoperative DVT prophylaxis during their inpatient stay. Patient was noted to have a relatively uneventful postoperative course. Patient reported satisfactory pain control with oral pain medications by postoperative day 0. Patient showed satisfactory progress with physical therapy. Patient moved steadily through the program and had no difficulty meeting the goals by postoperative day 3. Given patient's otherwise satisfactory course and having met physical therapy goals, plan is to discharge patient rehab on postoperative day 3. Discharge condition/disposition: Patient will be discharged to rehab in stable condition. Discharge medications: Instructions are given on resumption of patient's normal daily medications per primary care recommendation. Discharge instructions: 1. Wound care and infection precautions, keep incision dry and covered while showering, no lotions, creams, moisturizers. No soaking, tubs, pools, hottubs. Do not scrub over the incision. 2. Weight-bear as tolerated with walker / cane until follow-up. 3. Ice and elevate when necessary. Do not exceed 20 minutes per hour with ice pack. 4. Utilize compression sleeve until seen at first follow up appointment. 5. Visiting nursing care. 6. Home physical therapy. 7. Pain meds and anticoagulants per prescription. 8. Pain medication has potential to cause constipation. Increase oral fluid and fiber intake. Contact primary care provider if you have not had a bowel movement within 48 hours after discharge 9. No anti-inflammatory medication until discussed at first post operative visit, this including Motrin, Aleve, Mobic, Diclofenac. 10. Follow up in office at 2 weeks postop with Ruslan Huff PA-C 11. Follow up with your primary care doctor 7-10 days after discharge. 12. Contact [facility] with any questions, . Procedures: Revision femoral component right total knee arthroplasty, replace articular surface, medial retinacular repair Patient Condition at Discharge: Good Plan - Discharge Summary New Discharge Prescriptions: New HYDROcodone/APAP 7.5-325MG [[place] 7.5] 1 - 2 each PO Q6HR PRN #60 tab PRN Reason: Pain traMADol HCl [Ultram] 50 mg PO Q6H PRN #40 tab PRN Reason: Pain No Action rOPINIRole HCL [Requip] 1 mg PO QID Vilazodone HCl [Viibryd] 40 mg PO QAM metFORMIN HCL 1,000 mg PO BID Gabapentin [Neurontin] 300 mg PO BID Liraglutide [Victoza 2-John] 1.8 mg SQ DAILY@1200 Insulin Glargine,Hum.rec.anlog [Jim Solostar] 35 units SQ DAILY@1200 Canagliflozin [Invokana] 300 mg PO DAILY sitaGLIPtin [Januvia] 100 mg PO DAILY Albuterol Inhaler [Ventolin Hfa Inhaler] 1 - 2 puff INHALATION RT-Q6H PRN PRN Reason: Shortness Of Breath Levothyroxine Sodium [Synthroid] 88 mcg PO QAM hydrOXYzine PAMOATE [Vistaril] 25 mg PO Q6HR #40 capsule Apixaban [Eliquis] 5 mg PO BID Famotidine [Pepcid] 20 mg PO QAM Discharge Medication List Vilazodone HCl [Viibryd] 40 mg PO QAM 09/28/13 [History] metFORMIN HCL 1,000 mg PO BID 09/28/13 [History] rOPINIRole HCL [Requip] 1 mg PO QID 09/28/13 [History] Albuterol Inhaler [Ventolin Hfa Inhaler] 1 - 2 puff INHALATION RT-Q6H PRN [History] Canagliflozin [Invokana] 300 mg PO DAILY 10/14/16 [History] Gabapentin [Neurontin] 300 mg PO BID 10/14/16 [History] Insulin Glargine,Hum.rec.anlog [[place] Solostar] 35 units SQ DAILY@1200 [History] Liraglutide [Victoza 2-John] 1.8 mg SQ DAILY@1200 10/14/16 [History] sitaGLIPtin [Januvia] 100 mg PO DAILY 10/14/16 [History] Levothyroxine Sodium [Synthroid] 88 mcg PO QAM 10/18/16 [History] hydrOXYzine PAMOATE [Vistaril] 25 mg PO Q6HR #40 capsule 10/21/16 [Rx] Apixaban [Eliquis] 5 mg PO BID 11/05/16 [History] Famotidine [Pepcid] 20 mg PO QAM 11/14/16 [History] HYDROcodone/APAP 7.5-325MG [[place] 7.5] 1 - 2 each PO Q6HR PRN #60 tab 11/18/16 [ Rx] traMADol HCl [Ultram] 50 mg PO Q6H PRN #40 tab 11/18/16 [Rx] Follow up Appointment(s)/Referral(s): [facility], [NON-STAFF] - Jai Huff PAC [PHYSICIAN BUYING AGENT] - 2 Weeks Activity/Diet/Wound Care/Special Instructions: Orthopedic Discharge Instructions: 1. Wound care and infection precautions, keep incision dry and covered while showering, no lotions, creams, moisturizers. No soaking, pools, hot tubs. Do not scrub over incision. 2. Weight-bear as tolerated with walker / cane until follow-up. 3. Ice and elevate when necessary. Do not exceed 20 minutes per hour with ice pack. 4. Utilize compression sleeve until seen at first follow up appointment. 5. Visiting nursing care. 6. Home physical therapy. 7. Pain meds and anticoagulants per prescription. 8. Pain medication has potential to cause constipation. Increase oral fluid and fiber intake. Contact primary care provider if you have not had a bowel movement within 48 hours after discharge. 9. No anti-inflammatory medication until discussed at first post operative visit, this including Motrin, Aleve, Mobic, Diclofenac. 10. Follow up in office at 2 weeks postop with Ruslan Huff PA-C 11. Follow up with your primary care doctor 7-10 days after discharge. 12. Contact [facility] with any questions, . Discharge Disposition: TRANSFER TO SNF/ECF
--- NOTE | 2016-11-18 08:15 | P.PN ---
Subjective Progress Note Date: 11/18/16 Principal diagnosis: Status post revision femoral component of total knee arthroplasty, revision articular surface, medial retinacular repair Patient is seen today resting in her hospital bed, she appears comfortable. Her pain is controlled at this time. She denies any headaches, lightheadedness , chest pain, shortness of breath, fever chills, abdominal discomfort. Objective - Vital Signs Vital signs: Vital Signs Temp 98.9 F 11/18/16 07:37 Pulse 86 11/18/16 07:37 Resp 16 11/18/16 07:42 BP 127/60 11/18/16 07:37 Pulse Ox 95 11/18/16 07:38 Intake & Output 11/17/16 11/18/16 11/18/16 18:59 06:59 18:59 Intake Total 677 360 Output Total 300 Balance 677 60 Intake: Oral 677 360 Output: Urine 300 Other: Voiding Method Toilet Toilet Toilet # Voids 1 1 - Exam Right lower extremity: Incision is clean, dry and intact. There is ecchymosis noted throughout the right lower extremity, surrounding the medial and lateral aspects of the knee and also arranging down and foot. Calf is soft, no tenderness with palpation. Plantar flexion, dorsiflexion, EHL, FHL are intact. Sensory exam to light touch throughout the extremities intact, dorsal pedis pulses 2+. - Labs CBC & Chem 7: 11/18/16 06:44 Labs: Abnormal Lab Results - Last 24 Hours (Table) 11/17/16 11/17/16 11/17/16 Range/Units 10:42 17:32 19:51 RBC (3.80-5.40) m/uL Hgb (11.4-16.0) gm/dL Hct (34.0-46.0) % MCHC (31.0-37.0) g/dL POC Glucose (mg/dL) 227 H 149 H 159 H (75-99) mg/dL 11/18/16 11/18/16 Range/Units 06:44 07:05 RBC 3.11 L (3.80-5.40) m/uL Hgb 8.7 L (11.4-16.0) gm/dL Hct 28.5 L (34.0-46.0) % MCHC 30.6 L (31.0-37.0) g/dL POC Glucose (mg/dL) 134 H (75-99) mg/dL Assessment and Plan Plan: Assessment: 1. Postop day #3 status post revision femoral component total knee arthroplasty , articular surface, repair of medial retinaculum Assessment: 1. Pain control, continue use of oral medication 2. Continue work with physical therapy, weight-bear as tolerated with walker 3. No CPM 4. Ice and elevate/daily dressing changes 5. GI and DVT prophylaxis, continue Eliquis 5 mg twice a day 6. Medical recommendations 7. Discharge planning: Discharge to rehab today Time with Patient: Less than 30
[2016-11-18] MEDS: NON-FORMULARY DRUG (Vilazodone Hcl [Viibryd] 40 MG) PO SCH ×2 (08:51→08:53)
[2016-11-18] MEDS: NON-FORMULARY DRUG (Canagliflozin [Invokana] 300 MG) PO SCH ×2 (08:51→08:52)
[2016-11-18] MEDS: NON-FORMULARY DRUG (Liraglutide [Victoza 2-Pak] 1.8 MG) SQ SCH ×2 (08:52→08:53)
[2016-11-18 11:37] LABS: Glucose,Whole Blood 191 mg/dL (75-99)
--- NOTE | 2016-11-18 13:04 | P.PN ---
Progress Note - Text Progress Note Date: 11/18/16 DATE OF SERVICE: 11/18/2016 PRESENTING COMPLAINT: Right knee revision HISTORY OF PRESENT ILLNESS: 61-year-old female who underwent right total knee arthroplasty readmitted for pulmonary embolism and then readmitted one more time after a fall. Patient was having difficulty bearing weight on the right knee after discharge and underwent MCL repair. INTERVAL HISTORY: 11/18/2016: Patient sitting in the recliner appears very comfortable. Blood glucose improved after adjustment. Agreeable to work with physical therapy, tolerating her diet, ambulatory with a walker and some standby assistance. Anticoagulation needs are being met with Eliquis. Plans for discharge to rehab center today per orthopedics. 11/17/2016: Patient sitting her recliner appears very comfortable. blood glucose has been elevated, Lantus adjusted. Agreeable to work with physical therapy states her knee feels much improved from admission. Tolerating her diet eating 100% of her meals, ambulatory with a walker and some standby assistance.anticoagulation needs are being met with Eliquis. 11/16/2016: Patient lying in bed appears comfortable at the bedside, has some questions regarding discharge planning rehabilitation Center versus discharge to home. Patient's questions answered to the best my ability. Agreeable to work with physical therapy, tolerating her diet eating approximately 50% of her meals anticoagulation needs met with Eliquis and was not stopped prior to surgery. REVIEW OF SYSTEMS: Done for constitutional ,cardiovascular, GI, pulmonary with relevant findings as above. CURRENT MEDICATIONS [place], Eliquis Neurontin, Vistaril, Synthroid, for [employer], Glucophage, Lantus PHYSICAL EXAM VITAL SIGNS: Temperature 98.9, pulse 86, respiratory rate 16, blood pressure 127/60, oxygen saturation 95% on room air. GENERAL APPEARANCE: Lying in bed, not in distress. EYES: Pupils equal. Conjunctiva normal. NECK: JVD not raised. Mass not palpable. RESPIRATORY: Respiratory effort normal. Lungs clear to auscultation. CARDIOVASCULAR: First and second sounds normal. No edema. ABDOMEN: Soft. Liver and spleen not palpable. No tenderness. No mass palpable. PSYCHIATRY: Alert and oriented x3. Mood and affect normal. MUSCULOSKELETAL: Right knee with a dressing in place swelling noted, INVESTIGATIONS: Hemoglobin 8.7, Accu-Cheks noted. ASSESSMENT: -Right knee surgery on this admission for MCL repair/strain. -Recent total knee arthroplasty. -Recent pulmonary embolism. Patient on Xarelto. -Chronic hypoxic respiratory failure due to underlying restrictive lung disease. -Obesity hypoventilation syndrome. -Morbid obesity BMI greater than 50 -Chronic left restless leg syndrome. -Diabetes mellitus type 2 chronically on insulin. -Depression, not otherwise specified. -Primary osteoarthritis multiple joints bilateral. -Hypothyroidism. PLAN: Continue current course per orthopedic recommendations, anticoagulation needs met with Xarelto, continue current medication and treatment plan. discharge planning for rehab today. Plan of care discussed with the patient and at the bedside they are in agreement. All questions answered to the best of my ability. MARKETING CONSULTANT statement: Patient was seen and examined by nurse practitioner Martha Casper and all elements of the case discussed with attending Dr. Moran
[2016-11-18 13:53] VITALS: BP 112/52; PULSE 98; RESP 17; TEMP 98.2
--- NOTE | 2016-11-18 20:03 | PN ---
PROGRESS NOTE DATE OF SERVICE: 11/18/2016 ATTENDING NOTE: This patient was seen and examined by me. I discussed the case with my nurse practitioner, Ms. Casper. Patient is feeling well, sitting up. Comfortable. PHYSICAL EXAMINATION: Distant breath sounds. PSYCH: Alert and oriented x3. The patient will be going to the [facility]CF. Anticoagulation to continue. Care was discussed with the patient. Questions were answered. Thank you, Dr. Soriano. RAMAN / NELDA: [phone] /
== END 2016-11-18 15:30 | DRG 467 ==
LOC: 2ORMAIN 11:40 → 3SUR 16:32
PROVIDERS: ADMIT Orthopaedic Surgery; ATTEND Orthopaedic Surgery
PROC: 0SRT0J9 Replacement of Right Knee Joint, Femoral Surface with Synthetic Substitute, Cemented, Open Approach (ICD-10-PCS; principal; 2016-11-15 13:10)
PROC: 0MQN0ZZ Repair Right Knee Bursa and Ligament, Open Approach (ICD-10-PCS; principal; 2016-11-15 13:10)
PROC: 0SPT0JZ Removal of Synthetic Substitute from Right Knee Joint, Femoral Surface, Open Approach (ICD-10-PCS; principal; 2016-11-15 13:10)
PROC: 0SRV0J9 Replacement of Right Knee Joint, Tibial Surface with Synthetic Substitute, Cemented, Open Approach (ICD-10-PCS; principal; 2016-11-15 13:10)
PROC: 0SPV0JZ Removal of Synthetic Substitute from Right Knee Joint, Tibial Surface, Open Approach (ICD-10-PCS; principal; 2016-11-15 13:10)
DX: S83.411A Sprain of medial collateral ligament of right knee, initial encounter (principal); J96.11 Chronic respiratory failure with hypoxia; E66.2 Morbid (severe) obesity with alveolar hypoventilation; E03.9 Hypothyroidism, unspecified; E11.9 Type 2 diabetes mellitus without complications; F32.9 Major depressive disorder, single episode, unspecified; G25.81 Restless legs syndrome; J45.909 Unspecified asthma, uncomplicated; J98.4 Other disorders of lung; M19.91 Primary osteoarthritis, unspecified site; W19.XXXA Unspecified fall, initial encounter; Z79.01 Long term (current) use of anticoagulants; Z79.4 Long term (current) use of insulin; Z79.899 Other long term (current) drug therapy; Z82.3 Family history of stroke; Z86.711 Personal history of pulmonary embolism
CPT/HCPCS: 83036; 85025; 86850; 86900; 86901; 94760

== ENCOUNTER → 2017-08-02 | Outpatient (CLI) | payer MEDICARE ==
[~2017-08-02] MED LIST changes: -ACETAMINOPHEN TAB 500 MG TAB PO ONE; +DOBUTamine DRIP for NUC MED 500 MG in DEXTROSE/WATER 1 250ML.BAG IV ONE; -MELOXICAM 7.5 MG TAB PO ONE; -TRANEXAMIC ACID 1,000 MG in SODIUM CHLORIDE 0.9% 100 ML IVPB ONE; -ceFAZolin 2 GM in SODIUM CHLORIDE 0.9% 100 ML IVPB ONE
--- NOTE | 2017-08-02 12:43 | P.STRESS ---
- Stress Test Note Stress Test Results/Findings: Exam Performed: dobutamine stress echo with con Exam Date: 08/02/17 Reason for Exam: ABNORMAL EKG Height: 5 ft Weight: 122.47 kg Protocol: DSE Stage: 3 Duration of Exercise: 6:15 Resting Heart Rate: 66 Resting Blood Pressure: 156/63 Maximum Achieved Heart Rate: 138 Maximum Achieved Blood Pressure: 184/76 85% PMHR: 133 100% PMHR: 157 METS: NA Technologist Comment: Stress Test Results/Findings: This is a 62-year-old female with history of diabetes and abnormal EKG being evaluated for cardiac status. Stress data: Baseline EKG showed a sinus rhythm with evidence of right bundle- branch block pattern. A standard dose of dobutamine was initiated and was titrated to a maximum of 20 mics, achieving a maximal heart rate of 138 with a blood pressure of 178/65. EKGs taken during and after the dobutamine infusion did not reveal any changes to suggest ischemia. Patient did not experience any chest pain. Echo data: Baseline echo images show normal wall motion and thickening. Exercise echo images at low dose and high dose dobutamine showed progressive augmentation of wall motion and thickening in all the segments. Final impression: #1. Negative dobutamine stress test #2. Negative dobutamine stress echo.
== END | disposition home or self-care (01) ==
LOC: RADNMMAIN 09:00
PROVIDERS: ATTEND Family Medicine
DX: R94.31 Abnormal electrocardiogram [ECG] [EKG] (principal)
CPT/HCPCS: C8930; J1250; Q9950; 93351

== ENCOUNTER 2018-01-08 17:03 | Inpatient (IN) | payer MEDICARE ==
[2018-01-08] MEDS ORDERED: IPRATROPIUM-ALBUTEROL 3 ML NEB INHALATION STA (17:05)
--- NOTE | 2018-01-08 17:10 | ED ---
SOB HPI - General Stated Complaint: SOB Time Seen by Provider: 01/08/18 17:03 Source: patient, EMS, RN notes reviewed, old records reviewed Mode of arrival: EMS - History of Present Illness Initial Comments: This is a 62-year-old female with a history of asthma and a history of a possible PE in November of this year following knee surgery who currently is on Elaquis and she had a nondiagnostic imaging study done back at that time who presents today with shortness of breath that has been intermittent since yesterday she was sent here from her doctor's office to rule out a PE. She has a fevers chills nausea vomiting sweats. He does have a history of asthma she has not use any nebulizers today. She was found have a pulse oximetry of 91% at the doctor's office as well as 91% per EMS until she was placed on oxygen with a go up to 97% or 98%. She denies any cough phlegm production fevers chills sweats or other symptoms this time. History of obesity. MD Complaint: shortness of breath - Related Data Home Medications Medication Instructions Recorded Confirmed Vilazodone HCl [Viibryd] 40 mg PO DAILY 09/28/13 01/08/18 metFORMIN HCL 1,000 mg PO BID 09/28/13 01/08/18 rOPINIRole HCL [Requip] 1 mg PO QID 09/28/13 01/08/18 Gabapentin [Neurontin] 300 mg PO BID 10/14/16 01/08/18 Insulin Glargine,Hum.rec.anlog 35 units SQ DAILY 10/14/16 01/08/18 [Jim Castaneda] Liraglutide [Victoza 2-John] 1.8 mg SQ DAILY 10/14/16 01/08/18 sitaGLIPtin [Januvia] 100 mg PO DAILY 10/14/16 01/08/18 Levothyroxine Sodium [Synthroid] 88 mcg PO QAM 10/18/16 01/08/18 Apixaban [Eliquis] 5 mg PO BID 11/05/16 01/08/18 Famotidine [Pepcid] 20 mg PO QAM 11/14/16 01/08/18 Ferrous Sulfate [Feosol] 325 mg PO BID 01/08/18 01/08/18 Meloxicam [Mobic] 15 mg PO DAILY 01/08/18 01/08/18 Nystatin [Nystop] 1 dose TOPICAL BID 01/08/18 01/08/18 Tolterodine ER [Detrol LA] 4 mg PO DAILY 01/08/18 01/08/18 Previous Rx's Medication Instructions Recorded hydrOXYzine PAMOATE [Vistaril] 25 mg PO Q6HR #40 capsule 10/21/16 traMADol HCl [Ultram] 50 mg PO Q6H PRN #40 tab 11/18/16 Allergies Allergy/AdvReac Type Severity Reaction Status Date / Time adhesive tape Allergy Rash/Hives Verified 01/08/18 17:33 Review of Systems ROS Statement: Those systems with pertinent positive or pertinent negative responses have been documented in the HPI. ROS Other: All systems not noted in ROS Statement are negative. Past Medical History Past Medical History: Asthma, Diabetes Mellitus, Osteoarthritis (OA), Pulmonary Embolus (PE), Thyroid Disorder Additional Past Medical History / Comment(s): Questionable history of asthma, placed at one point on albuterol, but she doesn't take it on a regular basis. PE in lung 10/22/16. On Eliquis, states Dr Soriano instructed her to NOT stop it prior to surgery. Recent fall X2. History of Any Multi-Drug Resistant Organisms: None Reported Past Surgical History: Bariatric Surgery, Section, Cholecystectomy, Hernia Repair, Joint Replacement, Orthopedic Surgery Additional Past Surgical History / Comment(s): ABDOMINOPLASTY , SKIN REMOVED FROM UPPER LEGS,GASTRIC SLEEVE, STOMACH STAPLING, TOTAL LEFT KNEE, CATARACT SURGERY WITH IMPLANTS-BILATERAL, RIGHT TOTAL KNEE. Past Anesthesia/Blood Transfusion Reactions: No Reported Reaction Past Psychological History: Depression Smoking Status: Never smoker Past Alcohol Use History: Rare Past Drug Use History: None Reported - Past Family History Sister(s) Family Medical History: Deep Vein Thrombosis (DVT) Daughter(s) Additional Family Medical History / Comment(s): Blood clot in brain General Exam - General Exam Comments Initial Comments: This is a well-developed well-nourished awake alert oriented 3 female General appearance: alert, in no apparent distress Head exam: Present: atraumatic, normocephalic, normal inspection Eye exam: Present: normal appearance, PERRL, EOMI. Absent: scleral icterus, conjunctival injection, periorbital swelling ENT exam: Present: normal exam, mucous membranes moist Neck exam: Present: normal inspection. Absent: tenderness, meningismus, lymphadenopathy Respiratory exam: Present: chest wall tenderness (Tenderness palpation of the left costal sternal margin no step-off or crepitation.), decreased breath sounds. Absent: respiratory distress, wheezes, rales, rhonchi, stridor Cardiovascular Exam: Present: regular rate, normal rhythm, normal heart sounds. Absent: systolic murmur, diastolic murmur, rubs, gallop, clicks GI/Abdominal exam: Present: soft, normal bowel sounds. Absent: distended, tenderness, guarding, rebound, rigid Extremities exam: Present: normal inspection, full ROM, normal capillary refill , pedal edema (Trace pedal edema nothing out of the ordinary per the patient). Absent: tenderness, joint swelling, calf tenderness Back exam: Present: normal inspection Neurological exam: Present: alert, oriented X3, CN II-XII intact Psychiatric exam: Present: normal affect, normal mood Skin exam: Present: warm, dry, intact, normal color. Absent: rash Course Vital Signs 01/08/18 01/08/18 01/08/18 17:05 17:33 17:43 Temperature 98.4 F Pulse Rate 92 72 73 Respiratory 18 Rate Blood Pressure 192/79 O2 Sat by Pulse 94 L Oximetry 01/08/18 19:20 Temperature Pulse Rate 68 Respiratory 18 Rate Blood Pressure 133/70 O2 Sat by Pulse 95 Oximetry - Reevaluation(s) Reevaluation #1: 01/08/18 20:49 Patient initially was feeling somewhat improved Medical Decision Making - Medical Decision Making Patient was feeling somewhat improved however she does desaturate on room air down to about 82 with minimal exertion. She'll be admitted for exacerbation of asthma. Case is discussed with Dr. Moran - Lab Data Result diagrams: 01/08/18 17:34 01/08/18 17:34 Lab Results 01/08/18 01/08/18 01/08/18 Range/Units 17:34 17:34 17:34 WBC 7.1 (3.8-10.6) k/uL RBC 4.14 (3.80-5.40) m/uL Hgb 12.1 (11.4-16.0) gm/dL Hct 37.9 (34.0-46.0) % MCV 91.5 (80.0-100.0) fL MCH 29.3 (25.0-35.0) pg MCHC 32.0 (31.0-37.0) g/dL RDW 14.6 (11.5-15.5) % Plt Count 225 (150-450) k/uL Neutrophils % 67 % Lymphocytes % 22 % Monocytes % 5 % Eosinophils % 5 % Basophils % 1 % Neutrophils # 4.7 (1.3-7.7) k/uL Lymphocytes # 1.5 (1.0-4.8) k/uL Monocytes # 0.3 (0-1.0) k/uL Eosinophils # 0.3 (0-0.7) k/uL Basophils # 0.1 (0-0.2) k/uL Hypochromasia Slight PT (9.0-12.0) sec INR (<1.2) APTT (22.0-30.0) sec Sodium 138 (137-145) mmol/L Potassium 4.5 (3.5-5.1) mmol/L Chloride 105 (98-107) mmol/L Carbon Dioxide 25 (22-30) mmol/L Anion Gap 8 mmol/L BUN 18 H (7-17) mg/dL Creatinine 0.60 (0.52-1.04) mg/dL Est GFR (CKD-EPI)AfAm >90 (>60 ml/min/1.73 sqM) Est GFR (CKD-EPI)NonAf >90 (>60 ml/min/1.73 sqM) Glucose 375 H (74-99) mg/dL Calcium 9.2 (8.4-10.2) mg/dL Magnesium 1.4 L (1.6-2.3) mg/dL Total Bilirubin 0.3 (0.2-1.3) mg/dL AST 20 (14-36) U/L ALT 32 (9-52) U/L Alkaline Phosphatase 78 (38-126) U/L Total Creatine Kinase 24 L (30-135) U/L CK-MB (CK-2) <0.2 (0.0-2.4) ng/mL CK-MB (CK-2) Rel Index Troponin I <0.012 (0.000-0.034) ng/mL NT-Pro-B Natriuret Pep pg/mL Total Protein 6.8 (6.3-8.2) g/dL Albumin 3.6 (3.5-5.0) g/dL 01/08/18 01/08/18 Range/Units 17:34 17:34 WBC (3.8-10.6) k/uL RBC (3.80-5.40) m/uL Hgb (11.4-16.0) gm/dL Hct (34.0-46.0) % MCV (80.0-100.0) fL MCH (25.0-35.0) pg MCHC (31.0-37.0) g/dL RDW (11.5-15.5) % Plt Count (150-450) k/uL Neutrophils % % Lymphocytes % % Monocytes % % Eosinophils % % Basophils % % Neutrophils # (1.3-7.7) k/uL Lymphocytes # (1.0-4.8) k/uL Monocytes # (0-1.0) k/uL Eosinophils # (0-0.7) k/uL Basophils # (0-0.2) k/uL Hypochromasia PT 10.6 (9.0-12.0) sec INR 1.1 (<1.2) APTT 24.2 (22.0-30.0) sec Sodium (137-145) mmol/L Potassium (3.5-5.1) mmol/L Chloride (98-107) mmol/L Carbon Dioxide (22-30) mmol/L Anion Gap mmol/L BUN (7-17) mg/dL Creatinine (0.52-1.04) mg/dL Est GFR (CKD-EPI)AfAm (>60 ml/min/1.73 sqM) Est GFR (CKD-EPI)NonAf (>60 ml/min/1.73 sqM) Glucose (74-99) mg/dL Calcium (8.4-10.2) mg/dL Magnesium (1.6-2.3) mg/dL Total Bilirubin (0.2-1.3) mg/dL AST (14-36) U/L ALT (9-52) U/L Alkaline Phosphatase (38-126) U/L Total Creatine Kinase (30-135) U/L CK-MB (CK-2) (0.0-2.4) ng/mL CK-MB (CK-2) Rel Index Troponin I (0.000-0.034) ng/mL NT-Pro-B Natriuret Pep 169 pg/mL Total Protein (6.3-8.2) g/dL Albumin (3.5-5.0) g/dL - EKG Data -: EKG Interpreted by Me EKG shows normal: sinus rhythm (EKG shows normal sinus rhythm of 70 NE interval 142 QRS 144 QT since QTC 424/457 and some right bundle-branch block no acute ST- T wave changes) - Radiology Data Radiology results: report reviewed (Imaging showed no evidence of PE there is some evidence of increased interstitial markings. Asymptomatic complete report) , image reviewed Critical Care Time Critical Care Time: Yes Critical Care Time: 31 minutes of critical care time which includes initial presentation with history physical labs x-rays reevaluation patient several occasions discuss with the patient and her regarding findings. Discussion with the admitting physician admission orders and documentation of the above Disposition Clinical Impression: Asthma exacerbation, Exertional dyspnea, Exercise hypoxemia, Hypomagnesemia Disposition: ADMITTED IP TO THIS HOSP Condition: Stable Referrals: Maxim Montilla MD [Primary Care Provider] - 1-2 days
[2018-01-08 17:46] LABS: Basophils # (A) 0.1 k/uL (0-0.2); Basophils % (A) 1 %; Eosinophils # (A) 0.3 k/uL (0-0.7); Eosinophils % (A) 5 %; HCT 37.9 % (34.0-46.0); HGB 12.1 gm/dL (11.4-16.0); Hypochromasia Slight; Lymphocytes # (A) 1.5 k/uL (1.0-4.8); Lymphocytes % (A) 22 %; MCH 29.3 pg (25.0-35.0); MCV 91.5 fL (80.0-100.0); Monocytes # (A) 0.3 k/uL (0-1.0); Monocytes % (A) 5 %; Neutrophils # (A) 4.7 k/uL (1.3-7.7); Neutrophils % (A) 67 %; Platelet Count 225 k/uL (150-450); RBC 4.14 m/uL (3.80-5.40); RDW 14.6 % (11.5-15.5); WBC 7.1 k/uL (3.8-10.6)
[2018-01-08 17:56] LABS: INR 1.1 (<1.2); Partial Thromboplastin Time 24.2 sec (22.0-30.0); Prothrombin Time 10.6 sec (9.0-12.0)
[2018-01-08 18:00] LABS: Creatine Kinase 24 U/L (30-135)
[2018-01-08 18:02] LABS: ALT 32 U/L (9-52); AST 20 U/L (14-36); Albumin 3.6 g/dL (3.5-5.0); Alkaline Phosphatase 78 U/L (38-126); Anion Gap 8 mmol/L; Blood Urea Nitrogen 18 mg/dL (7-17); Calcium 9.2 mg/dL (8.4-10.2); Carbon Dioxide 25 mmol/L (22-30); Chloride 105 mmol/L (98-107); Glucose 375 mg/dL (74-99); Magnesium 1.4 mg/dL (1.6-2.3); Potassium 4.5 mmol/L (3.5-5.1); Sodium 138 mmol/L (137-145); Total Bilirubin 0.3 mg/dL (0.2-1.3); Total Protein 6.8 g/dL (6.3-8.2)
[2018-01-08 18:13] LABS: Creatine Kinase MB <0.2 ng/mL (0.0-2.4); Troponin I <0.012 ng/mL (0.000-0.034)
--- NOTE | 2018-01-08 18:16 | XR ---
EXAMINATION TYPE: XR chest 2V DATE OF EXAM: 01/08/2018 COMPARISON: 11/05/2016 HISTORY: Difficulty breathing TECHNIQUE: Frontal and lateral views of the chest are obtained. FINDINGS: There is general coarsening of the pulmonary interstitial markings. Heart size is normal. Costophrenic angles are clear. There is no pleural effusion. IMPRESSION: Increased interstitial density compared to old exam. This is nonspecific and could relat e to acute interstitial pneumonia or developing fibrosis. Normal heart.
[2018-01-08] MEDS ORDERED: MAGNESIUM SULFATE-D5W PMX 1 GM in DEXTROSE/WATER 1 100ML.BAG IVPB ONE (18:49)
--- NOTE | 2018-01-08 19:49 | CT ---
EXAMINATION TYPE: CT angio chest DATE OF EXAM: 01/08/2018 7:19 PM COMPARISON: 10/22/2016 HISTORY: Shortness of breath. CT DLP: 753.1 mGycm Automated exposure control for dose reduction was used. CONTRAST: CTA scan of the thorax is performed with IV Contrast, patient injected with 86ml mL of Isovue 370, pu lmonary embolism protocol. There are 3-D post processed images.. FINDINGS: There is a diffuse groundglass interstitial density in the lungs. I see no filling defects in the pul monary arteries. There are few bronchial lymph nodes measure up to 1 cm. There are paratracheal lymph nodes that measure up to 1.5 cm. Thoracic aorta appears intact without evidence of aneurysm or disse ction. There is no pericardial effusion. Heart size is normal. There is no pleural effusion. There ar e a few subpleural right upper lobe low density nodules that measure up to 1 cm. These are likely rel ated to inflammatory disease. There is spurring in the thoracic spine. I see no focal bone destructio n. IMPRESSION: NO EVIDENCE OF PULMONARY EMBOLISM. GROUNDGLASS INTERSTITIAL PULMONARY DENSITY CONSISTENT WITH INTERST ITIAL LUNG DISEASE THAT IS SLIGHTLY WORSE THAN OLD CT SCAN. STABLE SUBPLEURAL RIGHT UPPER LOBE NODULE S. STABLE MILD MEDIASTINAL AND BRONCHIAL ADENOPATHY.
[2018-01-08] MEDS ORDERED: methylPREDNISolone SOD SUCCI 125 MG/2 ML VIAL IV STA (20:47)
[2018-01-08] MEDS ORDERED: traMADol 50 MG TAB PO PRN (20:56)
[2018-01-08] MEDS: SODIUM CHLORIDE 0.9% 1,000 ML IV SCH (21:16)
[2018-01-08 22:20] LABS: Glucose,Whole Blood 243 mg/dL (75-99)
[2018-01-08] MEDS: FERROUS SULFATE 325 MG TAB PO SCH (22:30)
[2018-01-08] MEDS: metFORMIN 500 MG TAB PO SCH (22:30)
[2018-01-08] MEDS: APIXABAN 5 MG TAB PO SCH (22:30)
[2018-01-08] MEDS: GABAPENTIN 300 MG CAP PO SCH (22:30)
[2018-01-08] MEDS: NYSTATIN 100,000 UNIT/GM POWD 15 GM TOPICAL SCH (22:31)
[2018-01-08] MEDS: INSULIN ASPART 100 UNIT/ML 1 ML 10 ML VIAL SQ SCH (22:40)
[2018-01-08] MEDS: IPRATROPIUM-ALBUTEROL 3 ML NEB INHALATION SCH (23:09)
[2018-01-09] MEDS: hydrOXYzine PAMOATE 25 MG CAP PO SCH ×5 (00:33→23:21)
[2018-01-09] MEDS: methylPREDNISolone SOD SUCCI 125 MG/2 ML VIAL IV SCH ×4 (00:35→18:18)
[2018-01-09] MEDS: IPRATROPIUM-ALBUTEROL 3 ML NEB INHALATION SCH ×6 (02:41→23:09)
[2018-01-09] MEDS: LEVOTHYROXINE 88 MCG TAB PO SCH (06:17)
[2018-01-09 07:32] LABS: Glucose,Whole Blood 397 mg/dL (75-99)
[2018-01-09] MEDS: INSULIN ASPART 100 UNIT/ML 1 ML 10 ML VIAL SQ SCH ×4 (08:55→21:31)
[2018-01-09] MEDS: metFORMIN 500 MG TAB PO SCH ×2 (08:56→17:42)
[2018-01-09] MEDS: FERROUS SULFATE 325 MG TAB PO SCH ×2 (08:56→20:23)
[2018-01-09] MEDS: GABAPENTIN 300 MG CAP PO SCH ×2 (08:56→20:23)
[2018-01-09] MEDS: APIXABAN 5 MG TAB PO SCH ×2 (08:56→20:23)
[2018-01-09] MEDS: NYSTATIN 100,000 UNIT/GM POWD 15 GM TOPICAL SCH ×2 (08:59→20:27)
[2018-01-09] MEDS ORDERED: NON-FORMULARY DRUG (Liraglutide [Victoza 2-Pak] 1.8 MG) SQ SCH (09:00)
[2018-01-09] MEDS: Vilazodone Hcl [Viibryd] 40 MG PO SCH (09:56)
[2018-01-09] MEDS: LINAGLIPTIN 5 MG TABLET PO SCH (10:07)
[2018-01-09] MEDS: FAMOTIDINE 20 MG TAB PO SCH (10:07)
[2018-01-09] MEDS: INSULIN DETEMIR 100 UNIT/ML 10 ML VIAL SQ SCH (10:07)
[2018-01-09] MEDS: OXYBUTYNIN XL 5 MG TAB.ER.24 PO SCH (10:08)
[2018-01-09] MEDS: MELOXICAM 7.5 MG TAB PO SCH (10:08)
[2018-01-09 11:53] LABS: Glucose,Whole Blood 362 mg/dL (75-99)
[2018-01-09] MEDS: LOPERAMIDE 2 MG CAP PO PRN ×2 (14:57→18:46)
--- NOTE | 2018-01-09 15:47 | P.CNPUL ---
History of Present Illness Consult date: 01/09/18 Reason for consult: dyspnea Chief complaint: Shortness of breath History of present illness: This is of 62-year-old white female patient of Dr. Montilla, with past medical history of chronic bronchial asthma, chronic hypoxemic respiratory failure, type 2 diabetes mellitus, history of a possible pulmonary embolism in November of this year following the surgery, currently on Eliquis, hypothyroidism, who presented to the emergency department on 01/08/2018 with complaints of shortness of breath that has been intermittent in nature. She denies any fever , chills, nausea, vomiting or sweats. She has a rescue inhaler, no other maintenance inhalers for her history of chronic bronchial asthma. She denied any cough, no wheezing, no phlegm production, no sweats, no chest wall tenderness. Patient states she also noticed she has been sleeping a lot, up to 16 hours a day. Patient was desaturating on room air down to 82% with minimal exertion. Chest x-ray was completed, showed increased and traditional density, but no pleural effusions, no infiltrates. Normal heart. Lab work showed no leukocytosis, WBC of 7.1, hemoglobin is 12.1, electrolytes and renal profile were unremarkable, troponin was negative 1, proBNP was 169. Patient was started on IV steroids, nebulized bronchodilators, and admitted for acute exacerbation of bronchial asthma. CT angios of the chest showed no evidence of pulmonary embolism, there was groundglass interstitial pulmonary density consistent with interstitial lung disease that is slightly worsened old computed tomography scan. Stable subpleural right upper lobe nodules and stable mild mediastinal and bronchial adenopathy. EKG showed normal sinus rhythm with right bundle branch block. We're seeing this patient in consultation for dyspnea, acute on chronic hypoxemic respiratory failure related to acute exacerbation of chronic bronchial asthma, and possible interstitial lung disease Review of Systems All systems: negative Constitutional: Denies chills, Denies fever Eyes: denies blurred vision, denies pain Ears, nose, mouth and throat: Denies headache, Denies sore throat Cardiovascular: Denies chest pain, Denies shortness of breath Respiratory: Reports congestion, Reports dyspnea, Reports home oxygen, Denies cough Gastrointestinal: Denies abdominal pain, Denies diarrhea, Denies nausea, Denies vomiting Genitourinary: Denies dysuria, Denies hematuria Musculoskeletal: Denies myalgias Integumentary: Denies pruritus, Denies rash Neurological: Denies numbness, Denies weakness Psychiatric: Denies anxiety, Denies depression Endocrine: Denies fatigue, Denies weight change Past Medical History Past Medical History: Asthma, Diabetes Mellitus, Osteoarthritis (OA), Pulmonary Embolus (PE), Thyroid Disorder Additional Past Medical History / Comment(s): Questionable history of asthma, placed at one point on albuterol, but she doesn't take it on a regular basis. PE in lung 10/22/16. On Eliquis, states Dr Soriano instructed her to NOT stop it prior to surgery. Recent fall X2. History of Any Multi-Drug Resistant Organisms: None Reported Past Surgical History: Bariatric Surgery, Section, Cholecystectomy, Hernia Repair, Joint Replacement, Orthopedic Surgery Additional Past Surgical History / Comment(s): ABDOMINOPLASTY , SKIN REMOVED FROM UPPER LEGS,GASTRIC SLEEVE, STOMACH STAPLING, TOTAL LEFT KNEE, CATARACT SURGERY WITH IMPLANTS-BILATERAL, RIGHT TOTAL KNEE. Past Anesthesia/Blood Transfusion Reactions: Previous Problems w/ Anesthesia Additional Past Anesthesia/Blood Transfusion Reaction / Comment(s): Patient states OR "over anesthetized' her, was confused for 2 days, doesn't remember behavior. Past Psychological History: Depression Smoking Status: Never smoker Past Alcohol Use History: Rare Past Drug Use History: None Reported - Past Family History Sister(s) Family Medical History: Deep Vein Thrombosis (DVT) Additional Family Medical History / Comment(s): of stroke Daughter(s) Additional Family Medical History / Comment(s): Blood clot in brain Medications and Allergies Home Medications Medication Instructions Recorded Confirmed Type Vilazodone HCl [Viibryd] 40 mg PO DAILY 09/28/13 01/08/18 History metFORMIN HCL 1,000 mg PO BID 09/28/13 01/08/18 History rOPINIRole HCL [Requip] 1 mg PO QID 09/28/13 01/08/18 History Gabapentin [Neurontin] 300 mg PO BID 10/14/16 01/08/18 History Insulin Glargine,Hum.rec.anlog 35 units SQ DAILY 10/14/16 01/08/18 History [Jim Solzelda] Liraglutide [Victoza 2-John] 1.8 mg SQ DAILY 10/14/16 01/08/18 History sitaGLIPtin [Januvia] 100 mg PO DAILY 10/14/16 01/08/18 History Levothyroxine Sodium [Synthroid] 88 mcg PO QAM 10/18/16 01/08/18 History hydrOXYzine PAMOATE [Vistaril] 25 mg PO Q6HR #40 capsule 10/21/16 01/08/18 Rx Apixaban [Eliquis] 5 mg PO BID 11/05/16 01/08/18 History Famotidine [Pepcid] 20 mg PO QAM 11/14/16 01/08/18 History traMADol HCl [Ultram] 50 mg PO Q6H PRN #40 tab 11/18/16 01/08/18 Rx Ferrous Sulfate [Feosol] 325 mg PO BID 01/08/18 01/08/18 History Meloxicam [Mobic] 15 mg PO DAILY 01/08/18 01/08/18 History Nystatin [Nystop] 1 dose TOPICAL BID 01/08/18 01/08/18 History Tolterodine ER [Detrol LA] 4 mg PO DAILY 01/08/18 01/08/18 History Allergies Allergy/AdvReac Type Severity Reaction Status Date / Time adhesive tape Allergy Rash/Hives Verified 01/08/18 17:33 Physical Exam Vitals: Vital Signs Temp Pulse Pulse Pulse Pulse Pulse Pulse 01/09/18 15:00 98.3 F 102 H 01/09/18 11:23 92 01/09/18 11:11 90 01/09/18 10:54 99 90 115 H 01/09/18 09:33 99 01/09/18 09:30 98.6 F 99 01/09/18 07:25 70 01/09/18 07:11 69 01/09/18 05:45 98.6 F 98 01/09/18 02:51 68 01/09/18 02:42 68 01/08/18 23:17 65 01/08/18 23:11 65 01/08/18 22:37 97.7 F 67 01/08/18 21:36 64 01/08/18 19:20 68 01/08/18 17:43 73 01/08/18 17:33 72 01/08/18 17:05 98.4 F 92 Pulse Pulse Resp BP BP BP Pulse Ox 01/09/18 15:00 20 129/66 93 L 01/09/18 11:23 01/09/18 11:11 01/09/18 10:54 88 128 H 01/09/18 09:33 19 01/09/18 09:30 19 164/75 95 01/09/18 07:25 01/09/18 07:11 94 L 01/09/18 05:45 20 147/76 96 01/09/18 02:51 01/09/18 02:42 01/08/18 23:17 01/08/18 23:11 01/08/18 22:37 18 166/52 94 L 01/08/18 21:36 18 143/64 96 01/08/18 19:20 18 133/70 95 01/08/18 17:43 01/08/18 17:33 01/08/18 17:05 18 192/79 94 L Pulse Ox Pulse Ox Pulse Ox Pulse Ox Pulse Ox 01/09/18 15:00 01/09/18 11:23 01/09/18 11:11 01/09/18 10:54 95 96 93 L 94 L 86 L 01/09/18 09:33 01/09/18 09:30 01/09/18 07:25 01/09/18 07:11 01/09/18 05:45 01/09/18 02:51 01/09/18 02:42 01/08/18 23:17 01/08/18 23:11 01/08/18 22:37 01/08/18 21:36 01/08/18 19:20 01/08/18 17:43 01/08/18 17:33 01/08/18 17:05 Intake and Output 01/09/18 01/09/18 01/09/18 06:59 14:59 22:59 Intake Total 100 240 Balance 100 240 Intake: Oral 100 240 Other: Voiding Method Toilet # Voids 1 2 # Bowel Movements 0 2 Weight 132.676 kg GENERAL EXAM: Alert, pleasant, 62-year-old obese white female comfortable in no apparent distress. HEAD: Normocephalic/atraumatic. EYES: Normal reaction of pupils, equal size. Conjunctiva pink, sclera white. NOSE: Clear with pink turbinates. THROAT: No erythema or exudates. NECK: No masses, no JVD, no thyroid enlargement, no adenopathy. CHEST: No chest wall deformity. Symmetrical expansion. LUNGS: Equal air entry with no crackles, wheeze, rhonchi or dullness. CVS: Regular rate and rhythm, normal S1 and S2, no gallops, no murmurs, no rubs ABDOMEN: Soft, nontender. No hepatosplenomegaly, normal bowel sounds, no guarding or rigidity. EXTREMITIES: No clubbing, no edema, no cyanosis, 2+ pulses and upper and lower extremities. MUSCULOSKELETAL: Muscle strength and tone normal. SPINE: No scoliosis or deformity SKIN: No rashes CENTRAL NERVOUS SYSTEM: Alert and oriented -3. No focal deficits, tone is normal in all 4 extremities. PSYCHIATRIC: Alert and oriented -3. Appropriate affect. Intact judgment and insight. Results - Laboratory Findings CBC and BMP: 01/08/18 17:34 01/08/18 17:34 PT/INR, D-dimer PT 10.6 sec (9.0-12.0) 01/08/18 17:34 INR 1.1 (<1.2) 01/08/18 17:34 Abnormal lab findings: Abnormal Labs 01/08/18 01/08/18 01/08/18 17:34 17:34 22:18 BUN 18 H Glucose 375 H POC Glucose (mg/dL) 243 H Magnesium 1.4 L Total Creatine Kinase 24 L 01/09/18 01/09/18 07:04 11:52 BUN Glucose POC Glucose (mg/dL) 397 H 362 H Magnesium Total Creatine Kinase - Diagnostic Findings Chest x-ray: report reviewed, image reviewed CT scan - chest: report reviewed, image reviewed Additional studies: EKG reviewed Assessment and Plan Plan: Assessment #1. Acute on chronic hypoxemic respiratory failure secondary to acute exacerbation of chronic bronchial asthma, unspecified, and possible interstitial lung disease #2. Increased daytime somnolence possibly related to underlying narcolepsy versus sleep apnea #3. History of a possible pulmonary embolism after a knee surgery, currently patient is on Eliquis #4. Diabetes mellitus #5. Morbid obesity #6. Osteoarthritis #7. Hypothyroidism Plan: Continue IV steroids, nebulized bronchodilators, chest x-rays and CT chest reviewed by Dr. Bolton. No significant wheezing or congestion noted on physical exam, will continue current medical treatment. Patient will be evaluated for excessive daytime drowsiness an outpatient basis once she is over this acute illness. She will also need to have her pulmonary function testing again. We will continue to follow. I performed a history & physical examination of the patient and discussed their management with my nurse practitioner, Celi Santoyo. I reviewed the nurse practitioner's note and agree with the documented findings and plan of care. Lung sounds are positive for clear lungs. The findings and the impression was discussed with the patient. I attest to the documentation by the nurse practitioner. Time with Patient: Greater than 30
[2018-01-09 17:13] LABS: Glucose,Whole Blood 410 mg/dL (75-99)
[2018-01-09] MEDS: BUDESONIDE 1 MG/2 ML NEBU INHALATION SCH (19:58)
--- NOTE | 2018-01-09 19:59 | HP ---
HISTORY AND PHYSICAL DATE OF ADMISSION: 01/08/2018 DATE OF SERVICE: 01/09/2018. PRESENTING COMPLAINT: Short of breath. HISTORY OF PRESENTING COMPLAINT: This is a pleasant 62-year-old patient of Dr. Montilla. Chronic stable medical conditions include osteoarthritis, depression, diabetes, restless legs syndrome, home oxygen from restrictive lung disease and a pulmonary embolism in 2017, for which patient is on Eliquis. The patient presented with 2 days of worsening shortness of breath and some wheezing. Denies any cough. No fever. No chills. Decreased appetite. Tired, rundown. Chest CTA showed diffuse ground-glass interstitial density in the lungs and there was no evidence of pulmonary embolism. Admitted for the same. There is no sputum production. She was put on IV steroids. REVIEW OF SYSTEMS: CONSTITUTIONAL: Tired. HEENT: None. RESPIRATORY: As above. CARDIOVASCULAR: None. GASTROINTESTINAL: None. GENITOURINARY: None. MUSCULOSKELETAL: None. DERMATOLOGICAL: None. HEMATOLOGICAL: None. LYMPHATICS: None. PSYCHIATRY: None. NEUROLOGICAL: None. PAST MEDICAL HISTORY: 1. Diabetes. 2. Osteoarthritis. 3. Pulmonary embolism in 2017 following hip surgery. 4. Primary osteoarthritis. 5. Depression. PAST SURGICAL HISTORY: 1. Bariatric surgery. 2. . 3. Cholecystectomy. 4. Hernia repair. 5. Joint replacement. 6. Abdominoplasty. 7. Skin removed from the upper legs. 8. Gastric sleeve. 9. Stomach stapling. 10.Total left knee. 11.Cataract surgery and implants. 12.Right total knee. SOCIAL HISTORY: . Never smoked. Alcohol rarely. FAMILY HISTORY: DVT and stroke. HOME MEDICATIONS: 1. Ultram 50 mg q.6 p.r.n. 2. Januvia 100 mg p.o. daily. 3. Requip 1 mg p.o. q.i.d. 4. Metformin 1000 mg b.i.d. 5. Viibryd 40 mg p.o. daily. 6. Detrol LA 4 mg p.o. daily. 7. Nystop 1 dose topically b.i.d. 8. Mobic 50 mg p.o. daily. 9. Victoza 2-pack 1.8 subcutaneously daily. 10.Synthroid 88 mcg p.o. daily. 11.Toujeo 35 units subcutaneously daily. 12.Neurontin 300 mg b.i.d. 13.Iron 325 p.o. b.i.d. 14.Pepcid 20 mg p.o. daily. 15.Eliquis 5 mg p.o. b.i.d. ALLERGIES: ADHESIVE TAPE. PHYSICAL EXAMINATION: VITAL SIGNS ON PRESENTATION: Temperature 98.4, pulse 92, respiration 18, blood pressure 133/70, pulse ox 95% on 2 L. GENERAL APPEARANCE: Well built; BMI 57.1. Lying in bed, tired-appearing. EYES: Pupils equal. Conjunctivae normal. HEENT: External appearance of nose and ears normal. Oral cavity normal. NECK: JVD not raised. Mass not palpable. RESPIRATORY: Effort increased. LUNGS: Diminished breath sounds. Prolonged expiration. CARDIOVASCULAR: First and second sounds normal. No edema. ABDOMEN: Soft, non-tender. Liver and spleen not palpable. LYMPHATIC: No lymph node palpable in neck or axillae. PSYCHIATRY: Alert and oriented x3. Mood and affect normal. NEUROLOGICAL: Pupils equal. Cranial nerves grossly intact. Power and sensation grossly intact. MUSCULOSKELETAL: Evidence of osteoarthritis in the hands. INVESTIGATIONS: White count 7.1, hemoglobin 12.1, potassium 4.5, BUN 18, creatinine 0.6. Accu-Cheks noted to be 375, 243, 397. Magnesium 1.4. Troponin negative. ProBNP 169. Chest x-ray film, personally reviewed by me, shows some prominent interstitium. No obvious infiltrates. Chest CTA shows ground-glass interstitial pulmonary density, progressed from the previous older scan. EKG tracing, personally reviewed by me, shows right bundle branch block. ASSESSMENT: 1. Acute exacerbation of interstitial lung disease, type unknown. There was evidence on a previous CT scan. There is no obvious evidence of acute infection at this point. 2. Primary osteoarthritis. 3. Morbid obesity with body mass index of 57.1. 4. Depression not otherwise specified. 5. Diabetes mellitus, type 2, chronically on insulin, uncontrolled with hyperglycemia. 6. Restless legs syndrome. 7. Chronic hypoxic respiratory failure, on home oxygen. 8. Chronic pulmonary embolism in 2017, for which patient is on Eliquis. 9. Hypothyroidism. PLAN: Patient was started on IV steroids and inhaled steroids. Home medications are resumed. Accu-Cheks will be followed. Pulmonary was consulted. Care was discussed with the patient. Questions were answered. MMODL / IJN: [id number] /
[2018-01-09] MEDS: SODIUM CHLORIDE 0.9% 1,000 ML IV SCH (20:27)
[2018-01-09 20:47] LABS: Glucose,Whole Blood 351 mg/dL (75-99)
[2018-01-09] MEDS: methylPREDNISolone SOD SUCCI 40 MG/ML 1 ML VIAL IV SCH (23:21)
[2018-01-10] MEDS: IPRATROPIUM-ALBUTEROL 3 ML NEB INHALATION SCH ×4 (03:48→15:52)
[2018-01-10] MEDS: hydrOXYzine PAMOATE 25 MG CAP PO SCH ×3 (05:37→17:48)
[2018-01-10] MEDS: LEVOTHYROXINE 88 MCG TAB PO SCH (05:37)
[2018-01-10] MEDS: BUDESONIDE 1 MG/2 ML NEBU INHALATION SCH (07:18)
[2018-01-10 07:37] LABS: Glucose,Whole Blood 338 mg/dL (75-99)
[2018-01-10] MEDS: INSULIN ASPART 100 UNIT/ML 1 ML 10 ML VIAL SQ SCH ×3 (08:20→18:13)
[2018-01-10] MEDS: MELOXICAM 7.5 MG TAB PO SCH (08:20)
[2018-01-10] MEDS: INSULIN DETEMIR 100 UNIT/ML 10 ML VIAL SQ SCH (08:20)
[2018-01-10] MEDS: OXYBUTYNIN XL 5 MG TAB.ER.24 PO SCH (08:20)
[2018-01-10] MEDS: LINAGLIPTIN 5 MG TABLET PO SCH (08:20)
[2018-01-10] MEDS: metFORMIN 500 MG TAB PO SCH ×2 (08:21→17:48)
[2018-01-10] MEDS: APIXABAN 5 MG TAB PO SCH (08:21)
[2018-01-10] MEDS: FAMOTIDINE 20 MG TAB PO SCH (08:21)
[2018-01-10] MEDS: GABAPENTIN 300 MG CAP PO SCH (08:21)
[2018-01-10] MEDS: FERROUS SULFATE 325 MG TAB PO SCH (08:21)
[2018-01-10] MEDS: methylPREDNISolone SOD SUCCI 40 MG/ML 1 ML VIAL IV SCH ×2 (08:22→18:03)
[2018-01-10] MEDS: Vilazodone Hcl [Viibryd] 40 MG PO SCH (08:22)
--- NOTE | 2018-01-10 10:48 | P.PN ---
Subjective Progress Note Date: 01/10/18 Principal diagnosis: Acute on chronic hypoxemic respiratory failure secondary to acute exacerbation of chronic bronchial asthma, and possible interstitial lung disease This is of 62-year-old white female patient of Dr. Montilla, with past medical history of chronic bronchial asthma, chronic hypoxemic respiratory failure, type 2 diabetes mellitus, history of a possible pulmonary embolism in November of this year following the surgery, currently on Eliquis, hypothyroidism, who presented to the emergency department on 01/08/2018 with complaints of shortness of breath that has been intermittent in nature. She denies any fever , chills, nausea, vomiting or sweats. She has a rescue inhaler, no other maintenance inhalers for her history of chronic bronchial asthma. She denied any cough, no wheezing, no phlegm production, no sweats, no chest wall tenderness. Patient states she also noticed she has been sleeping a lot, up to 16 hours a day. Patient was desaturating on room air down to 82% with minimal exertion. Chest x-ray was completed, showed increased and traditional density, but no pleural effusions, no infiltrates. Normal heart. Lab work showed no leukocytosis, WBC of 7.1, hemoglobin is 12.1, electrolytes and renal profile were unremarkable, troponin was negative 1, proBNP was 169. Patient was started on IV steroids, nebulized bronchodilators, and admitted for acute exacerbation of bronchial asthma. CT angios of the chest showed no evidence of pulmonary embolism, there was groundglass interstitial pulmonary density consistent with interstitial lung disease that is slightly worsened old computed tomography scan. Stable subpleural right upper lobe nodules and stable mild mediastinal and bronchial adenopathy. EKG showed normal sinus rhythm with right bundle branch block. We're seeing this patient in consultation for dyspnea, acute on chronic hypoxemic respiratory failure related to acute exacerbation of chronic bronchial asthma, and possible interstitial lung disease On 01/02/2018 patient seen in follow-up on medical surgical floor. Sitting up in the chair, in no acute distress, room air pulse ox is 90%, patient is afebrile, hemodynamically stable, sounds are positive for faint end expiratory wheezing on today's exam. No rhonchi, no rales. No cough, no chest congestion. Patient has been treated with steroids, nebulized bronchodilators, Pulmicort. No chest pain, no worsening dyspnea. Objective - Vital Signs Vital signs: Vital Signs Temp 98.6 F 01/10/18 09:41 Pulse 99 01/10/18 09:44 Resp 19 01/10/18 09:44 BP 123/54 01/10/18 09:41 Pulse Ox 90 L 01/10/18 09:41 Intake & Output 01/09/18 01/10/18 01/10/18 18:59 06:59 18:59 Intake Total 240 500 Balance 240 500 Weight 132.676 kg Intake: Oral 240 500 Other: Voiding Method Toilet Toilet Toilet # Voids 2 2 # Bowel Movements 2 - Exam GENERAL EXAM: Alert, pleasant, 62-year-old obese white female comfortable in no apparent distress. HEAD: Normocephalic/atraumatic. EYES: Normal reaction of pupils, equal size. Conjunctiva pink, sclera white. NOSE: Clear with pink turbinates. THROAT: No erythema or exudates. NECK: No masses, no JVD, no thyroid enlargement, no adenopathy. CHEST: No chest wall deformity. Symmetrical expansion. LUNGS: Equal air entry with no crackles, wheeze, rhonchi or dullness. CVS: Regular rate and rhythm, normal S1 and S2, no gallops, no murmurs, no rubs ABDOMEN: Soft, nontender. No hepatosplenomegaly, normal bowel sounds, no guarding or rigidity. EXTREMITIES: No clubbing, no edema, no cyanosis, 2+ pulses and upper and lower extremities. MUSCULOSKELETAL: Muscle strength and tone normal. SPINE: No scoliosis or deformity SKIN: No rashes CENTRAL NERVOUS SYSTEM: Alert and oriented -3. No focal deficits, tone is normal in all 4 extremities. PSYCHIATRIC: Alert and oriented -3. Appropriate affect. Intact judgment and insight. - Labs CBC & Chem 7: 01/08/18 17:34 01/08/18 17:34 Labs: Abnormal Lab Results - Last 24 Hours (Table) 01/09/18 01/09/18 01/09/18 Range/Units 11:52 17:11 20:41 POC Glucose (mg/dL) 362 H 410 H 351 H (75-99) mg/dL 01/10/18 Range/Units 07:20 POC Glucose (mg/dL) 338 H (75-99) mg/dL Assessment and Plan Plan: Assessment #1. Acute on chronic hypoxemic respiratory failure secondary to acute exacerbation of chronic bronchial asthma, unspecified, and possible interstitial lung disease #2. Increased daytime somnolence possibly related to underlying narcolepsy versus sleep apnea #3. History of a possible pulmonary embolism after a knee surgery, currently patient is on Eliquis #4. Diabetes mellitus #5. Morbid obesity #6. Osteoarthritis #7. Hypothyroidism Plan: Patient is stable, no worsening dyspnea, no chest congestion, no cough. Vital signs are stable, from pulmonary perspective patient is stable for discharge home today on outpatient course of prednisone taper, nebulized bronchodilators, she will need follow-up in the outpatient clinic with Dr. Bolton in 7-10 days. I performed a history & physical examination of the patient and discussed their management with my nurse practitioner, Celi Santoyo. I reviewed the nurse practitioner's note and agree with the documented findings and plan of care. Lung sounds are positive for clear lungs. The findings and the impression was discussed with the patient. I attest to the documentation by the nurse practitioner. Time with Patient: Less than 30
[2018-01-10 12:10] LABS: Glucose,Whole Blood 368 mg/dL (75-99)
[2018-01-10 13:14] LABS: Hemoglobin A1C 8.8 % (4.0-6.0)
[2018-01-10] MEDS: NYSTATIN 100,000 UNIT/GM POWD 15 GM TOPICAL SCH (13:15)
[2018-01-10 13:57] VITALS: BP 142/96; PULSE 90; RESP 19; TEMP 97.7
[2018-01-10 17:10] LABS: Glucose,Whole Blood 266 mg/dL (75-99)
--- NOTE | 2018-01-10 23:36 | DS ---
DISCHARGE SUMMARY DATE OF ADMISSION: 01/08/2018 DATE OF DISCHARGE: 01/10/2018 FINAL DIAGNOSES: 1. Acute exacerbation of interstitial lung disease, type unknown. 2. Primary osteoarthritis. 3. Secondary bronchospasm with no obvious evidence of asthma. 4. Morbid obesity with body mass index of 57.1. 5. Depression not otherwise specified. 6. Diabetes mellitus, type 2, chronically on insulin, uncontrolled with hyperglycemia. 7. Restless legs syndrome. 8. Chronic hypoxic respiratory failure, on home oxygen. 9. Chronic pulmonary embolism in 2017, for which patient is on Eliquis. 10.Hypothyroidism. HOSPITAL COURSE: This patient presented with shortness of breath. CT scan showed diffuse ground-glass interstitial density in the lungs. There was no PE. The patient was given a burst of steroids, to which she responded. Patient showed some progression of interstitial lung pattern on the CT scan. Did discuss this at length with the patient today. Also spoke to Dr. Bolton over the phone. He will follow up the same in the office. Patient is doing better at the time of discharge. On examination, temperature 97.7, pulse 90, respiration 19, blood pressure 142/96, pulse ox 95% on room air. LUNGS: Fair air entry. CARDIOVASCULAR: First and second sounds normal. Accu-Cheks running high. DISCHARGE MEDICATIONS: 1. Viibryd 40 mg a day. 2. Metformin 1000 mg b.i.d. 3. Requip 1 mg p.o. q.i.d. 4. Neurontin 300 mg b.i.d. 5. Insulin Lantus Toujeo 35 units subcutaneously daily. 6. Victoza 2-John 1.8 mg subcutaneously daily. 7. Januvia 100 mg a day. 8. Synthroid 88 mcg a day. 9. Eliquis 5 mg b.i.d. 10.Pepcid 20 mg a day. 11.Ultram 50 mg q.6 p.r.n. 12.Iron 325 mg b.i.d. 13.Mobic 50 mg p.o. daily. 14.Nystatin 1 dose topically b.i.d. 15.Detrol LA 4 mg p.o. daily. 16.Ventolin HFA 1-2 puffs q.6 p.r.n. 17.Prednisone taper. Follow up with Dr. Montilla on 01/17/2018. Follow up with Dr. Bolton in one week. ADDITIONAL NOTE: Patient was told to take additional 8 units of Levemir in addition to her scheduled dose for the next 3 days. Discussion and discharge planning more than 35 minutes. MMODL / IJN: [id number] /
== END 2018-01-10 18:46 | disposition home or self-care (01) | DRG 196 ==
LOC: EC 17:03 → 4MS4W 20:53
PROVIDERS: ADMIT Hospitalist; ATTEND Hospitalist
DX: J84.9 Interstitial pulmonary disease, unspecified (principal); J96.21 Acute and chronic respiratory failure with hypoxia; I27.82 Chronic pulmonary embolism; Z68.43 Body mass index [BMI] 50.0-59.9, adult; E11.65 Type 2 diabetes mellitus with hyperglycemia; E66.01 Morbid (severe) obesity due to excess calories; E83.42 Hypomagnesemia; J98.01 Acute bronchospasm; F32.9 Major depressive disorder, single episode, unspecified; E03.9 Hypothyroidism, unspecified; G25.81 Restless legs syndrome; I45.10 Unspecified right bundle-branch block; M19.91 Primary osteoarthritis, unspecified site; G47.419 Narcolepsy without cataplexy; G47.30 Sleep apnea, unspecified; R91.8 Other nonspecific abnormal finding of lung field; R59.0 Localized enlarged lymph nodes; Z79.01 Long term (current) use of anticoagulants; Z79.4 Long term (current) use of insulin; Z79.1 Long term (current) use of non-steroidal anti-inflammatories (NSAID); Z79.890 Hormone replacement therapy; Z79.899 Other long term (current) drug therapy; Z91.048 Other nonmedicinal substance allergy status; Z98.84 Bariatric surgery status; Z96.653 Presence of artificial knee joint, bilateral; Z90.49 Acquired absence of other specified parts of digestive tract; Z98.42 Cataract extraction status, left eye; Z98.41 Cataract extraction status, right eye; Z96.1 Presence of intraocular lens; Z99.81 Dependence on supplemental oxygen; Z82.3 Family history of stroke
CPT/HCPCS: 36415; 71046; 71275; 80053; 82550; 82553; 83036; 83735; 83880; 84484; 85025; 85610; 85730; 93005; 94640; 94760; 96365; 96375; 99291

== ENCOUNTER → 2018-03-26 | Outpatient (CLI) | payer MEDICARE ==
--- NOTE | 2018-03-26 14:48 | CT ---
EXAMINATION TYPE: CT chest wo con DATE OF EXAM: 03/26/2018 COMPARISON: 01/08/2018 HISTORY: pulmonary nodules, SOB CT DLP: 1342 mGycm High-resolution noncontrast CT of the chest was performed with the patient in the prone and supine po sitions. Lung and mediastinal window settings are submitted. The lungs appear to be well-aerated. I do not see evidence for fibrotic change. There is no eviden ce for bronchiectasis, groundglass infiltrate or mass. Previously noted nodules are not appropriately redemonstrated however I do recommend further evaluation with low dose CT versus standard CT of the chest. No pleural effusion is identified. I do not see evidence for hilar or mediastinal mass or gertrudis nopathy. IMPRESSION: No significant abnormality is seen. Correlate clinically. Previously noted nodules are not appropriately redemonstrated however I do recommend further evaluation with low dose CT versus st andard CT of the chest.
== END ==
LOC: RADCTMAIN 13:37
PROVIDERS: ATTEND Internal Medicine Critical Care Medicine
DX: R91.1 Solitary pulmonary nodule (principal)
CPT/HCPCS: 71250

== ENCOUNTER 2018-04-13 15:24 | Observation (INO) | payer MEDICARE ==
[2018-04-13] MEDS ORDERED: SODIUM CHLORIDE 0.9% 1,000 ML IV STA (15:30)
[2018-04-13 16:01] LABS: Basophils % (A) 0 %; Eosinophils # (A) 0.3 k/uL (0-0.7); Eosinophils % (A) 5 %; HCT 42.6 % (34.0-46.0); HGB 13.8 gm/dL (11.4-16.0); Lymphocytes # (A) 1.7 k/uL (1.0-4.8); Lymphocytes % (A) 25 %; MCH 29.1 pg (25.0-35.0); MCHC 32.5 g/dL (31.0-37.0); MCV 89.6 fL (80.0-100.0); Mean Platelet Volume 6.9; Monocytes # (A) 0.4 k/uL (0-1.0); Monocytes % (A) 7 %; Neutrophils # (A) 4.2 k/uL (1.3-7.7); Neutrophils % (A) 62 %; Platelet Count 175 k/uL (150-450); RBC 4.75 m/uL (3.80-5.40); RDW 13.9 % (11.5-15.5); WBC 6.7 k/uL (3.8-10.6)
[2018-04-13 16:12] LABS: ALT 57 U/L (9-52); AST 46 U/L (14-36); Albumin 4.1 g/dL (3.5-5.0); Alkaline Phosphatase 54 U/L (38-126); Anion Gap 8 mmol/L; Blood Urea Nitrogen 22 mg/dL (7-17); Calcium 9.7 mg/dL (8.4-10.2); Carbon Dioxide 26 mmol/L (22-30); Chloride 105 mmol/L (98-107); Glucose 187 mg/dL (74-99); Lipase 80 U/L (23-300); Magnesium 1.3 mg/dL (1.6-2.3); Sodium 139 mmol/L (137-145); Total Bilirubin 0.8 mg/dL (0.2-1.3); Total Protein 7.3 g/dL (6.3-8.2)
[2018-04-13 16:15] LABS: Potassium 5.3 mmol/L (3.5-5.1)
[2018-04-13 16:17] LABS: Partial Thromboplastin Time 24.6 sec (22.0-30.0); Prothrombin Time 10.3 sec (9.0-12.0)
--- NOTE | 2018-04-13 16:27 | XR ---
EXAMINATION TYPE: XR chest 2V DATE OF EXAM: 04/13/2018 COMPARISON: 01/08/2018 TECHNIQUE: PA and lateral views submitted. HISTORY: Pain FINDINGS: The lungs are clear and there is no pneumothorax, pleural effusion, or focal pneumonia. Hypertrophi c and degenerative change of the spine. Interstitium somewhat coarsened but stable. Heart mildly enla rged. IMPRESSION: 1. Heart is enlarged and is a mild coarsened interstitium which was also noted on the previous exam. May represent mild chronic interstitial lung disease or venous congestion. Correlate clinically.
--- NOTE | 2018-04-13 16:28 | ED ---
Chest Pain HPI - General Chief Complaint: Chest Pain Stated Complaint: Chest and rt arm pain Time Seen by Provider: 04/13/18 15:30 Source: patient, RN notes reviewed, old records reviewed Mode of arrival: wheelchair Limitations: no limitations - History of Present Illness Initial Comments: This is a 59-year-old female the ER for evaluation of right arm pain right arm tingling and chest pain. No shortness of breath and diaphoresis symptoms admit for the symptoms episodic throughout the day. Intermittent. A she is currently with chest pain. No recent travel history or sick contacts no fever cough or congestion, patient has no history of high blood pressures positive for diabetes denies high cholesterol or family history, no smoking history. Patient does suffer from low oxygen, she does wear oxygen during the day for this fact. His main reason she sleep at night that her oxygen dropped low. Patient denies fever cough or congestion MD Complaint: chest pain -: hour(s) Onset: during rest, during exertion Pain Location: substernal, right chest Pain Radiation: RUE Severity: mild Severity scale (1-10): 3 Quality: tightness, aching Consistency: intermittent Improves With: nothing Worsens With: nothing Context: other Anginal Symptoms: other (None) Other Symptoms: other - Related Data Home Medications Medication Instructions Recorded Confirmed Vilazodone HCl [Viibryd] 40 mg PO DAILY 09/28/13 04/13/18 metFORMIN HCL 1,000 mg PO BID 09/28/13 04/13/18 rOPINIRole HCL [Requip] 1 mg PO QID 09/28/13 04/13/18 Gabapentin [Neurontin] 300 mg PO BID 10/14/16 04/13/18 Levothyroxine Sodium [Synthroid] 88 mcg PO QAM 10/18/16 04/13/18 Apixaban [Eliquis] 5 mg PO BID 11/05/16 04/13/18 Famotidine [Pepcid] 20 mg PO QAM 11/14/16 04/13/18 Ferrous Sulfate [Feosol] 325 mg PO BID 01/08/18 04/13/18 Meloxicam [Mobic] 15 mg PO DAILY 01/08/18 04/13/18 Tolterodine ER [Detrol LA] 4 mg PO DAILY 01/08/18 04/13/18 Insulin Degludec/Liraglutide 25 unit SQ DAILY 04/13/18 04/13/18 [Xultophy 100 Unit-3.6MG/ml Pen] Melatonin 10 mg PO HS 04/13/18 04/13/18 Allergies Allergy/AdvReac Type Severity Reaction Status Date / Time adhesive tape Allergy Rash/Hives Verified 04/13/18 15:29 Review of Systems ROS Statement: Those systems with pertinent positive or pertinent negative responses have been documented in the HPI. ROS Other: All systems not noted in ROS Statement are negative. EKG Findings - EKG Comments: EKG Findings:: EKG shows sinus rhythm rate of 75, RI 136, QRS 134, QTc 451 Past Medical History Past Medical History: Asthma, Diabetes Mellitus, Osteoarthritis (OA), Pulmonary Embolus (PE), Thyroid Disorder Additional Past Medical History / Comment(s): Questionable history of asthma, placed at one point on albuterol, but she doesn't take it on a regular basis. PE in lung 10/22/16. On Eliquis, states Dr Soriano instructed her to NOT stop it prior to surgery. Recent fall X2. History of Any Multi-Drug Resistant Organisms: None Reported Past Surgical History: Bariatric Surgery, Section, Cholecystectomy, Hernia Repair, Joint Replacement, Orthopedic Surgery Additional Past Surgical History / Comment(s): ABDOMINOPLASTY , SKIN REMOVED FROM UPPER LEGS,GASTRIC SLEEVE, STOMACH STAPLING, TOTAL LEFT KNEE, CATARACT SURGERY WITH IMPLANTS-BILATERAL, RIGHT TOTAL KNEE. Past Anesthesia/Blood Transfusion Reactions: Previous Problems w/ Anesthesia Additional Past Anesthesia/Blood Transfusion Reaction / Comment(s): Patient states OR "over anesthetized' her, was confused for 2 days, doesn't remember behavior. Past Psychological History: Depression Smoking Status: Never smoker Past Alcohol Use History: Rare Past Drug Use History: None Reported - Past Family History Sister(s) Family Medical History: Deep Vein Thrombosis (DVT) Additional Family Medical History / Comment(s): of stroke Daughter(s) Additional Family Medical History / Comment(s): Blood clot in brain General Exam Limitations: no limitations General appearance: alert, in no apparent distress Head exam: Present: atraumatic, normocephalic, normal inspection Eye exam: Present: normal appearance, PERRL, EOMI. Absent: scleral icterus, conjunctival injection, periorbital swelling ENT exam: Present: normal exam, mucous membranes moist Neck exam: Present: normal inspection. Absent: tenderness, meningismus, lymphadenopathy Respiratory exam: Present: normal lung sounds bilaterally. Absent: respiratory distress, wheezes, rales, rhonchi, stridor Cardiovascular Exam: Present: regular rate, normal rhythm, normal heart sounds. Absent: systolic murmur, diastolic murmur, rubs, gallop, clicks GI/Abdominal exam: Present: soft, normal bowel sounds. Absent: distended, tenderness, guarding, rebound, rigid Extremities exam: Present: normal inspection, full ROM, normal capillary refill. Absent: tenderness, pedal edema, joint swelling, calf tenderness Back exam: Present: normal inspection Neurological exam: Present: alert, oriented X3, CN II-XII intact Psychiatric exam: Present: normal affect, normal mood Skin exam: Present: warm, dry, intact, normal color. Absent: rash Course Vital Signs 04/13/18 15:27 Temperature 97.8 F Pulse Rate 70 Respiratory 18 Rate Blood Pressure 167/79 O2 Sat by Pulse 96 Oximetry - Reevaluation(s) Reevaluation #1: 04/13/18 17:33 Medical record reviewed Reevaluation #2: 04/13/18 17:33 Patient's chest pain remains Chest Pain MDM - MDM 62 female the ER for evaluation. Patient does suffer from morbid obesity, patient denies family history of heart disease and high blood pressure, she is unsure disease high cholesterol. Patient is positive for diabetes. Patient has a chest pain chest pain is right-sided right-sided central, patient remained chest pain currently, will be admitted for cardiac observation Critical Care Time Critical Care Time: Yes Total Critical Care Time: 31 Disposition Clinical Impression: Chest pain Disposition: ADMITTED IP TO THIS HOSP Instructions (If sedation given, give patient instructions): Chest Pain (ED) Is patient prescribed a controlled substance at d/c from ED?: No Referrals: Maxim Montilla MD [Primary Care Provider] - 1-2 days
[2018-04-13] MEDS ORDERED: NITROGLYCERIN SL TABS 0.4 MG TAB SUBLINGUAL PRN (17:30)
[2018-04-13] MEDS ORDERED: HEPARIN SODIUM,PORCINE 5,000 UNIT/ML 1 ML VIAL IV ONE (17:30)
[2018-04-13] MEDS ORDERED: HEPARIN SODIUM,PORCINE 5,000 UNIT/ML 1 ML VIAL IV PRN (17:30)
[2018-04-13] MEDS ORDERED: HEPARIN SOD,PORK IN 0.45% NACL 25,000 UNIT in 0.45% NACL 1 250ML.BAG IV SCH (17:30)
[2018-04-13] MEDS: METOPROLOL TARTRATE 25 MG TAB PO SCH (20:22)
[2018-04-13] MEDS ORDERED: LOPERAMIDE 2 MG CAP PO PRN (21:06)
[2018-04-13 21:41] LABS: Glucose,Whole Blood 181 mg/dL (75-99)
[2018-04-14 06:08] LABS: Mean Platelet Volume 7.4; Platelet Count 177 k/uL (150-450)
[2018-04-14 06:28] LABS: Cholesterol 273 mg/dL (<200); HDL Cholesterol 41 mg/dL (40-60)
[2018-04-14 06:36] LABS: Triglycerides 726 mg/dL (<150)
[2018-04-14 06:42] LABS: Glucose,Whole Blood 179 mg/dL (75-99)
--- NOTE | 2018-04-14 08:33 | P.CRDCN ---
History of Present Illness Consult date: 04/14/18 History of present illness: This is a 61-year-old female who was admitted from our emergency room for evaluation of pain in the right arm and right side of the chest.. 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 Not associated with any nausea or vomiting. The pain is increased on movements of the arm. There is tenderness in the shoulder area on the anterior chest on the right side. These pains appear to be atypical and muscular skeletal. Her EKG did not show any acute changes. Cardiac enzymes are negative. She had a stress echocardiogram in July which was negative for ischemia. Based on was fact, no further cardiac intervention is suggested. Further evaluation for muscle skeletal pain to be done to the primary care physician and will be seeing her on when necessary basis Past Medical History Past Medical History: Asthma, Diabetes Mellitus, Osteoarthritis (OA), Pulmonary Embolus (PE), Thyroid Disorder Additional Past Medical History / Comment(s): Questionable history of asthma, placed at one point on albuterol, but she doesn't take it on a regular basis. PE in lung 10/22/16. On Eliquis, states Dr Soriano instructed her to NOT stop it prior to surgery. Recent fall X2. History of Any Multi-Drug Resistant Organisms: None Reported Past Surgical History: Bariatric Surgery, Section, Cholecystectomy, Hernia Repair, Joint Replacement, Orthopedic Surgery Additional Past Surgical History / Comment(s): ABDOMINOPLASTY , SKIN REMOVED FROM UPPER LEGS,GASTRIC SLEEVE, STOMACH STAPLING, TOTAL LEFT KNEE, CATARACT SURGERY WITH IMPLANTS-BILATERAL, RIGHT TOTAL KNEE. Past Anesthesia/Blood Transfusion Reactions: Previous Problems w/ Anesthesia Additional Past Anesthesia/Blood Transfusion Reaction / Comment(s): Patient states OR "over anesthetized' her, was confused for 2 days, doesn't remember behavior. Past Psychological History: Depression Smoking Status: Never smoker Past Alcohol Use History: Rare Past Drug Use History: None Reported - Past Family History Sister(s) Family Medical History: Deep Vein Thrombosis (DVT) Additional Family Medical History / Comment(s): of stroke Daughter(s) Additional Family Medical History / Comment(s): Blood clot in brain Medications and Allergies Home Medications Medication Instructions Recorded Confirmed Type Vilazodone HCl [Viibryd] 40 mg PO DAILY 09/28/13 04/13/18 History metFORMIN HCL 1,000 mg PO BID 09/28/13 04/13/18 History rOPINIRole HCL [Requip] 1 mg PO QID 09/28/13 04/13/18 History Gabapentin [Neurontin] 300 mg PO BID 10/14/16 04/13/18 History Levothyroxine Sodium [Synthroid] 88 mcg PO QAM 10/18/16 04/13/18 History Apixaban [Eliquis] 5 mg PO BID 11/05/16 04/13/18 History Famotidine [Pepcid] 20 mg PO QAM 11/14/16 04/13/18 History Ferrous Sulfate [Feosol] 325 mg PO BID 01/08/18 04/13/18 History Meloxicam [Mobic] 15 mg PO DAILY 01/08/18 04/13/18 History Tolterodine ER [Detrol LA] 4 mg PO DAILY 01/08/18 04/13/18 History Insulin Degludec/Liraglutide 25 unit SQ DAILY 04/13/18 04/13/18 History [Xultophy 100 Unit-3.6MG/ml Pen] Melatonin 10 mg PO HS 04/13/18 04/13/18 History Allergies Allergy/AdvReac Type Severity Reaction Status Date / Time adhesive tape Allergy Rash/Hives Verified 04/13/18 15:29 Physical Exam Vitals: Vital Signs Temp Pulse Pulse Resp BP BP Pulse Ox 04/14/18 08:00 98.3 F 51 L 18 127/74 99 04/14/18 04:00 16 04/14/18 03:34 98.1 F 67 16 134/77 99 04/14/18 00:00 16 04/13/18 23:36 98.1 F 65 16 143/70 93 L 04/13/18 20:00 16 04/13/18 19:00 98.2 F 64 16 175/90 95 04/13/18 15:27 97.8 F 70 18 167/79 96 Intake and Output 04/13/18 04/14/18 04/14/18 22:59 06:59 14:59 Intake Total 149.730 Balance 149.730 Intake: Intake, IV Titration 149.730 Amount Heparin Sod,Pork in 0.45% 149.730 NaCl 25,000 unit In 0.45 % NaCl 1 250ml.bag @ 8.02 UNITS/KG/HR 10 mls/hr IV .Q24H [facility] Rx#:[id number] Other: Voiding Method Toilet Toilet # Voids 2 Weight 124.738 kg GENERAL EXAM: Patient is alert and oriented and doesn't appear to be in any acute distress HEENT: Normocephalic. Normal reaction of pupils, equal size, normal range of extraocular motion. No erythema or exudates in the throat. NECK: No masses, no nuchal rigidity. CHEST: No chest wall deformity. LUNGS: Equal air entry with no crackles or wheeze. HEART: S1 and S2 normal with no audible mumurs or gallops. Regular rhythm, femorals equal on both sides.. ABDOMEN: No hepatosplenomegaly, normal bowel sounds, no guarding or rigidity. SKIN: No rashes CENTRAL NERVOUS SYSTEM: No focal deficits. EXTREMITIES: No cyanosis, clubbing or edema. Results 04/14/18 05:24 04/13/18 15:51 Cardiac Enzymes 04/13/18 04/13/18 04/13/18 Range/Units 15:51 15:51 22:38 AST 46 H (14-36) U/L Troponin I <0.012 <0.012 (0.000-0.034) ng/mL 04/14/18 Range/Units 03:29 AST (14-36) U/L Troponin I <0.012 (0.000-0.034) ng/mL Coagulation 04/13/18 04/13/18 04/14/18 Range/Units 15:51 22:38 05:24 PT 10.3 (9.0-12.0) sec APTT 24.6 32.8 H 36.7 H (22.0-30.0) sec Lipids 04/14/18 Range/Units 05:24 Triglycerides 726 H (<150) mg/dL Cholesterol 273 H (<200) mg/dL HDL Cholesterol 41 (40-60) mg/dL CBC 04/13/18 04/14/18 Range/Units 15:51 05:24 WBC 6.7 (3.8-10.6) k/uL RBC 4.75 (3.80-5.40) m/uL Hgb 13.8 (11.4-16.0) gm/dL Hct 42.6 (34.0-46.0) % Plt Count 175 177 (150-450) k/uL Comprehensive Metabolic Panel 04/13/18 Range/Units 15:51 Sodium 139 (137-145) mmol/L Potassium 5.3 H (3.5-5.1) mmol/L Chloride 105 (98-107) mmol/L Carbon Dioxide 26 (22-30) mmol/L BUN 22 H (7-17) mg/dL Creatinine 0.51 L (0.52-1.04) mg/dL Glucose 187 H (74-99) mg/dL Calcium 9.7 (8.4-10.2) mg/dL AST 46 H (14-36) U/L ALT 57 H (9-52) U/L Alkaline Phosphatase 54 (38-126) U/L Total Protein 7.3 (6.3-8.2) g/dL Albumin 4.1 (3.5-5.0) g/dL Current Medications Generic Name Dose Route Start Last Admin Trade Name Freq PRN Reason Stop Dose Admin Aspirin 325 mg 04/14/18 09:00 Aspirin PO DAILY [facility] Atorvastatin Calcium 80 mg 04/14/18 09:00 Lipitor PO DAILY [facility] Heparin Sodium (Porcine) 0 unit 04/13/18 17:30 Heparin IV Q6HR PRN Low PTT Protocol Heparin Sodium/Sodium Chloride 250 mls @ 10 mls/hr 04/13/18 17:30 04/14/18 06 :23 25,000 unit/ Sodium Chloride IV 14.03 units/kg/hr .Q24H [facility] 17.5 mls/hr Titration Protocol 8.02 UNITS/KG/HR Loperamide HCl 2 mg 04/13/18 21:06 04/13/18 21:28 Imodium PO 2 mg QID PRN Administration Diarrhea Metoprolol Tartrate 25 mg 04/13/18 21:00 04/13/18 20:22 Lopressor PO 25 mg BID [facility] Administration Nitroglycerin 0.4 mg 04/13/18 17:30 Nitrostat SUBLINGUAL Q5M PRN Chest Pain Ropinirole HCl 1 mg 04/13/18 23:30 04/13/18 23:24 Requip PO 1 mg QID [facility] Administration Intake and Output 04/13/18 04/14/18 04/14/18 22:59 06:59 14:59 Intake Total 149.730 Balance 149.730 Intake: Intake, IV Titration 149.730 Amount Heparin Sod,Pork in 0.45% 149.730 NaCl 25,000 unit In 0.45 % NaCl 1 250ml.bag @ 8.02 UNITS/KG/HR 10 mls/hr IV .Q24H [facility] Rx#:[id number] Other: Voiding Method Toilet Toilet # Voids 2 Weight 124.738 kg 04/14/18 05:24 04/13/18 15:51 EKG Interpretations (text) Sinus rhythm without acute changes Assessment and Plan (1) History of asthma Current Visit: Yes Status: Acute Code(s): Z87.09 - PERSONAL HISTORY OF OTHER DISEASES OF THE RESPIRATORY SYSTEM SNOMED Code(s): 824433694 (2) Chest pain Current Visit: Yes Status: Acute Code(s): R07.9 - CHEST PAIN, UNSPECIFIED SNOMED Code(s): 23168180 (3) Pulmonary embolism Current Visit: No Status: Acute Code(s): I26.99 - OTHER PULMONARY EMBOLISM WITHOUT ACUTE COR PULMONALE SNOMED Code(s): 73356113 (4) Diabetes mellitus Current Visit: No Status: Acute Code(s): E11.9 - TYPE 2 DIABETES MELLITUS WITHOUT COMPLICATIONS SNOMED Code(s): 70916512 Plan: Patient's chest and right arm pain, appeared to be muscular skeletal. EKGs and cardiac enzymes are negative. Stress echo done in July of last year was negative. No further cardiac workup at this time. Thank you
[2018-04-14] MEDS ORDERED: ASPIRIN 325 MG TAB PO SCH (09:00)
[2018-04-14] MEDS ORDERED: ATORVASTATIN 80 MG TAB PO SCH (09:00)
[2018-04-14] MEDS ORDERED: GABAPENTIN 300 MG CAP PO SCH (10:15)
[2018-04-14] MEDS ORDERED: MELOXICAM 7.5 MG TAB PO SCH (10:15)
[2018-04-14] MEDS ORDERED: OXYBUTYNIN XL 5 MG TAB.ER.24 PO SCH (10:15)
[2018-04-14] MEDS ORDERED: LEVOTHYROXINE 88 MCG TAB PO SCH (10:15)
[2018-04-14] MEDS ORDERED: NON-FORMULARY DRUG (Vilazodone Hcl [Viibryd] 40 MG) PO SCH (10:15)
[2018-04-14] MEDS ORDERED: metFORMIN 500 MG TAB PO SCH (10:15)
[2018-04-14] MEDS ORDERED: APIXABAN 5 MG TAB PO SCH (10:15)
[2018-04-14] MEDS ORDERED: FERROUS SULFATE 325 MG TAB PO SCH (10:15)
[2018-04-14] MEDS ORDERED: FAMOTIDINE 20 MG TAB PO SCH (10:15)
[2018-04-14] MEDS: ACETAMINOPHEN TAB 325 MG TAB PO PRN ×2 (10:24→16:58)
[2018-04-14] MEDS: MAGNESIUM OXIDE 400 MG TAB PO SCH ×2 (10:24→16:56)
[2018-04-14] MEDS: METOPROLOL TARTRATE 25 MG TAB PO SCH (10:26)
[2018-04-14] MEDS: INSULIN ASPART (NovoLOG) 100 UNIT/ML VIAL SQ SCH ×3 (10:31→16:56)
[2018-04-14 11:44] LABS: Glucose,Whole Blood 216 mg/dL (75-99)
[2018-04-14 16:01] VITALS: BP 169/74; PULSE 69; RESP 18; TEMP 97.6
[2018-04-14 16:34] LABS: Glucose,Whole Blood 212 mg/dL (75-99)
--- NOTE | 2018-04-14 17:57 | DS ---
DISCHARGE SUMMARY HISTORY AND PHYSICAL AND DISCHARGE SUMMARY: DATE OF ADMISSION: 04/13/2018 DATE OF DISCHARGE: 04/14/2018 PRESENTING COMPLAINT: Chest pain. HISTORY OF PRESENTING COMPLAINT: This is a very pleasant 62-year-old patient who follows with Dr. Montilla. Chronic stable medical conditions include interstitial lung disease, osteoarthritis, morbid obesity, depression, diabetes, restless legs syndrome, chronic hypoxic respiratory failure, hypothyroidism and chronic pulmonary embolism. Yesterday the patient went to the [employer] store, was standing in the line, then developed what she described as a pressure across the chest, more like a tightening. There was no shortness of breath. No dizziness. Did feel a bit tired. No perspiration. She came out and sat in the car for about 30 minutes, then decided to come to the hospital. Later in the evening patient developed more pain in the right arm, to the point she was not able to use her right arm, and when she did get a Tylenol, the pain greatly improved. The patient had a negative stress test last July by Dr. Barnes. She has also been worked up for pulmonary issues by Dr. Bolton. REVIEW OF SYSTEMS: CONSTITUTIONAL: None. HEENT: None. RESPIRATORY: As above. CARDIOVASCULAR: As above. GASTROINTESTINAL: None. GENITOURINARY: None. MUSCULOSKELETAL: Arthritic pain in joints. DERMATOLOGICAL: None. HEMATOLOGICAL: None. LYMPHATICS: None. PSYCHIATRY: None. NEUROLOGICAL: None. PAST MEDICAL HISTORY: 1. Interstitial lung disease. 2. Primary osteoarthritis. 3. Secondary bronchospasm. 4. Morbid obesity. 5. Depression. 6. Diabetes mellitus, type 2. 7. Restless legs syndrome. 8. Chronic hypoxic respiratory failure. 9. Chronic pulmonary embolism. 10.Hypothyroidism. PAST SURGICAL HISTORY: 1. Bariatric surgery. 2. . 3. Cholecystectomy. 4. Hernia repair. 5. Abdominoplasty. 6. Skin removed from her right upper leg. 7. Gastric sleeve. 8. Stomach stapling. 9. Total knee joint. 10.Cataract surgery with implants. SOCIAL HISTORY: No smoking. Alcohol rarely. . FAMILY HISTORY: Stroke and DVT. HOME MEDICATIONS: 1. Requip 1 mg p.o. q.i.d. 2. Metformin 1000 mg p.o. b.i.d. 3. Viibryd 40 mg p.o. daily. 4. Detrol LA 4 mg p.o. daily. 5. Mobic 15 mg p.o. daily. 6. Melatonin 10 mg at bedtime. 7. Synthroid 88 mcg a day. 8. Xultophy 25 units subcutaneously daily. 9. Neurontin 300 mg b.i.d. 10.Iron 325 p.o. b.i.d. 11.Pepcid 20 mg p.o. daily. 12.Eliquis 5 mg b.i.d. ALLERGIES: ADHESIVE TAPE. PHYSICAL EXAMINATION: VITAL SIGNS ON PRESENTATION: Temperature 98.2, pulse 54, respiration 16, blood pressure 175/90, pulse ox 96% on room air. GENERAL APPEARANCE: Well built; BMI 53.7. Sitting up, awake, comfortable. EYES: Pupils equal. Conjunctivae normal. HEENT: External appearance of nose and ears normal. Oral cavity normal. NECK: JVD not raised. Mass not palpable. RESPIRATORY: Effort normal. LUNGS: Distant breath sounds. CARDIOVASCULAR: First and second sounds normal. No edema. ABDOMEN: Soft, non-tender. Liver and spleen not palpable. LYMPHATIC: No lymph node palpable in neck or axillae. PSYCHIATRY: Alert and oriented x3. Mood and affect normal. NEUROLOGICAL: Pupils equal. Cranial nerves grossly intact. Power and sensation grossly intact. INVESTIGATIONS: White count 6.7, hemoglobin 13.8, potassium 5.3, BUN 22, creatinine 0.51, triglycerides 726. Troponin x3 negative. EKG tracing, personally reviewed by me, shows a right bundle branch block. Chest x-ray film, personally reviewed by me, shows slight cardiomegaly. Lung gonzalez are clear. ASSESSMENT: 1. Anterior chest wall pain with right arm pain. It became painful to move her right arm. Did improve with Tylenol. Most likely musculoskeletal. Rule out a cardiac cause, felt to be unlikely. 2. Interstitial lung disease. 3. Primary osteoarthritis. 4. Morbid obesity; body mass index 53.7. 5. Depression not otherwise specified. 6. Diabetes mellitus, type 2, chronically on insulin. 7. Restless legs syndrome. 8. Chronic hypoxic respiratory failure. Does desaturate . 9. Chronic pulmonary embolism in 2017, for which patient is on Eliquis. 10.Hypothyroidism. PLAN: Patient was seen by Cardiology, Dr. Barnes. He felt this is more musculoskeletal. Patient's home medications are otherwise renewed. Care was discussed with the patient and her at the bedside. Patient is to follow up with Dr. Barnes in the office. Questions were answered. Home medications will remain the same as above. Follow up with Dr. Barnes in one week. Follow up with Dr. Montilla in one week. MMODL / IJN: [id number] /
[2018-04-14] MEDS ORDERED: MELATONIN 5 MG TABLET PO SCH (21:00)
== END 2018-04-14 18:00 | disposition home or self-care (01) ==
LOC: EC 15:24 → 1SOBS 17:30
PROVIDERS: ADMIT Hospitalist; ATTEND Hospitalist
DX: R07.89 Other chest pain (principal); M79.601 Pain in right arm; E03.9 Hypothyroidism, unspecified; E66.01 Morbid (severe) obesity due to excess calories; E11.9 Type 2 diabetes mellitus without complications; G25.81 Restless legs syndrome; I27.82 Chronic pulmonary embolism; J45.909 Unspecified asthma, uncomplicated; J84.9 Interstitial pulmonary disease, unspecified; J96.11 Chronic respiratory failure with hypoxia; M19.91 Primary osteoarthritis, unspecified site; F32.9 Major depressive disorder, single episode, unspecified; Z68.43 Body mass index [BMI] 50.0-59.9, adult; Z79.01 Long term (current) use of anticoagulants; Z79.1 Long term (current) use of non-steroidal anti-inflammatories (NSAID); Z79.4 Long term (current) use of insulin; Z79.899 Other long term (current) drug therapy; Z79.890 Hormone replacement therapy; Z98.84 Bariatric surgery status; Z98.42 Cataract extraction status, left eye; Z98.41 Cataract extraction status, right eye; Z96.1 Presence of intraocular lens; Z90.49 Acquired absence of other specified parts of digestive tract; Z82.3 Family history of stroke; Z91.048 Other nonmedicinal substance allergy status; Z91.81 History of falling; Z96.653 Presence of artificial knee joint, bilateral
CPT/HCPCS: 96361; 96366 ×2; 96376; 96365; 99291; 36415; 93005; 83880; 80061; 80053; 83690; 83735; 84484 ×2; 85025; 85049; 85610; 85730 ×2; 71046; G0378 ×2; J1644 ×2

== ENCOUNTER → 2018-06-20 | Outpatient (CLI) | payer MEDICARE ==
--- NOTE | 2018-06-21 09:44 | ECHOF ---
Referral Reason:Dyspnea R06.00, E66.2 Morbid (severe) obesity with MEASUREMENTS -------- HEIGHT: 127.0 cm WEIGHT: 136.1 kg BP: RVIDd: 3.1 cm (< 3.3) IVSd: 1.5 cm (0.6 - 1.1) LVIDd: 3.1 cm (3.9 - 5.3) LVPWd: 1.6 cm (0.6 - 1.1) IVSs: 1.9 cm LVIDs: 1.5 cm LVPWs: 2.1 cm Ao Diam: 2.8 cm (2.0 - 3.7) AV Cusp: 2.2 cm (1.5 - 2.6) LA Diam: 3.1 cm (2.7 - 3.8) MV EXCURSION: 16.312 mm (> 18.000) MV EF SLOPE: 106 mm/s (70 - 150) EPSS: 0.3 cm MV E Doron: 0.85 m/s MV DecT: 279 ms MV A Doron: 0.81 m/s MV E/A Ratio: 1.05 RAP: 5.00 mmHg RVSP: 14.52 mmHg FINDINGS -------- Sinus rhythm. This was a technically difficult study with suboptimal views. The left ventricular size is normal. There is moderate concentric left ventricular hypertrophy. O verall left ventricular systolic function is normal with, an EF between 55 - 60 %. The right ventricle is normal in size. Normal LA size by volume 22+/-6 ml/m2. The right atrial size is normal. Lumason used Interatrial and interventricular septum intact. The aortic valve is trileaflet and appears structurally normal. Mild mitral regurgitation is present. Mild tricuspid regurgitation present. The right ventricular systolic pressure, as measured by Doppl er, is 14.52mmHg. Pulmonic valve appears structurally normal. The aortic root size is normal. IVC Not well visulized. There is no pericardial effusion. CONCLUSIONS -------- 1. Sinus rhythm. 2. This was a technically difficult study with suboptimal views. 3. The left ventricular size is normal. 4. There is moderate concentric left ventricular hypertrophy. 5. Overall left ventricular systolic function is normal with, an EF between 55 - 60 %. 6. The right ventricle is normal in size. 7. Normal LA size by volume 22+/-6 ml/m2. 8. The right atrial size is normal. 9. Lumason used 10. Interatrial and interventricular septum intact. 11. The aortic valve is trileaflet and appears structurally normal. 12. Mild mitral regurgitation is present. 13. Mild tricuspid regurgitation present. 14. The right ventricular systolic pressure, as measured by Doppler, is 14.52mmHg. 15. Pulmonic valve appears structurally normal. 16. The aortic root size is normal. 17. IVC Not well visulized. 18. There is no pericardial effusion. C[employer] TENDER: Luanne Carlson RDCS
== END ==
LOC: RADECHMAIN 13:57
PROVIDERS: ATTEND Internal Medicine
DX: E66.2 Morbid (severe) obesity with alveolar hypoventilation (principal); Z68.43 Body mass index [BMI] 50.0-59.9, adult; R06.00 Dyspnea, unspecified; G47.33 Obstructive sleep apnea (adult) (pediatric)
CPT/HCPCS: C8929; Q9950; 93306

== ENCOUNTER → 2018-07-23 | Outpatient (CLI) | payer MEDICARE | END | disposition home or self-care (01) | LOC: RADMAMWWP 15:18 | PROVIDERS: ATTEND Family Medicine | DX: Z53.9 Procedure and treatment not carried out, unspecified reason (principal) ==

== ENCOUNTER 2018-11-05 14:38 | Emergency (ER) | payer MEDICARE ==
[2018-11-05 14:48] VITALS: BP 147/60; PULSE 89; RESP 18; TEMP 98.4
--- NOTE | 2018-11-05 15:39 | XR ---
EXAMINATION TYPE: XR chest 2V DATE OF EXAM: 11/05/2018 COMPARISON: 04/13/2018 INDICATION: Swallowed tooth TECHNIQUE: Frontal and lateral views of the chest are obtained. FINDINGS: The heart size is normal. The pulmonary vasculature is normal. The lungs are clear. No radiopaque foreign bodies to suggest a tooth or within the [id number]. IMPRESSION: 1. No acute pulmonary process. 2. No radiopaque foreign body to suggest tooth aspiration.
--- NOTE | 2018-11-05 15:42 | ED ---
ENT HPI - General Chief complaint: ENT Stated complaint: Swallowed a tooth Source: family Mode of arrival: ambulatory Limitations: no limitations - History of Present Illness Initial comments: 63-year-old female presenting for evaluation of possible ingestion of a tooth during dental procedure. Patient states she disposition she felt something during extraction of all of her teeth. She states her dentist finished the appointment and recommended she come for imaging studies at the emergency department. Patient denies coughing indigestion chest pain shortness breath or any other symptoms she states she is unsure that she swallowed that she states she feels normal. - Related Data Home Medications Medication Instructions Recorded Confirmed Vilazodone HCl [Viibryd] 40 mg PO DAILY 09/28/13 04/13/18 metFORMIN HCL 1,000 mg PO BID 09/28/13 04/13/18 rOPINIRole HCL [Requip] 1 mg PO QID 09/28/13 04/13/18 Gabapentin [Neurontin] 300 mg PO BID 10/14/16 04/13/18 Levothyroxine Sodium [Synthroid] 88 mcg PO QAM 10/18/16 04/13/18 Apixaban [Eliquis] 5 mg PO BID 11/05/16 04/13/18 Famotidine [Pepcid] 20 mg PO QAM 11/14/16 04/13/18 Ferrous Sulfate [Feosol] 325 mg PO BID 01/08/18 04/13/18 Meloxicam [Mobic] 15 mg PO DAILY 01/08/18 04/13/18 Tolterodine ER [Detrol LA] 4 mg PO DAILY 01/08/18 04/13/18 Insulin Degludec/Liraglutide 25 unit SQ DAILY 04/13/18 04/13/18 [Xultophy 100 Unit-3.6MG/ml Pen] Melatonin 10 mg PO HS 04/13/18 04/13/18 Previous Rx's Medication Instructions Recorded Atorvastatin Calcium [Lipitor] 40 mg PO HS #30 tablet 04/14/18 Allergies Allergy/AdvReac Type Severity Reaction Status Date / Time adhesive tape Allergy Rash/Hives Verified 11/05/18 14:48 Review of Systems ROS Statement: Those systems with pertinent positive or pertinent negative responses have been documented in the HPI. ROS Other: All systems not noted in ROS Statement are negative. Past Medical History Past Medical History: Asthma, Diabetes Mellitus, Osteoarthritis (OA), Pulmonary Embolus (PE), Thyroid Disorder Additional Past Medical History / Comment(s): Questionable history of asthma, placed at one point on albuterol, but she doesn't take it on a regular basis. PE in lung 10/22/16. On Eliquis, states Dr Soriano instructed her to NOT stop it prior to surgery. Recent fall X2. History of Any Multi-Drug Resistant Organisms: None Reported Past Surgical History: Bariatric Surgery, Section, Cholecystectomy, Hernia Repair, Joint Replacement, Orthopedic Surgery Additional Past Surgical History / Comment(s): ABDOMINOPLASTY , SKIN REMOVED FROM UPPER LEGS,GASTRIC SLEEVE, STOMACH STAPLING, TOTAL LEFT KNEE, CATARACT SURGERY WITH IMPLANTS-BILATERAL, RIGHT TOTAL KNEE. Past Anesthesia/Blood Transfusion Reactions: Previous Problems w/ Anesthesia Additional Past Anesthesia/Blood Transfusion Reaction / Comment(s): Patient states OR "over anesthetized' her, was confused for 2 days, doesn't remember behavior. Past Psychological History: Depression Smoking Status: Never smoker Past Alcohol Use History: Rare Past Drug Use History: None Reported - Past Family History Sister(s) Family Medical History: Deep Vein Thrombosis (DVT) Additional Family Medical History / Comment(s): of stroke Daughter(s) Additional Family Medical History / Comment(s): Blood clot in brain General Exam - General Exam Comments Initial Comments: General: The patient is awake and alert, in no distress, and does not appear acutely ill. Eye: Pupils are equal, round and reactive to light, extra-ocular movements are intact. No nystagmus. There is normal conjunctiva bilaterally. No signs of icterus. Ears, nose, mouth and throat: There are moist mucous membranes and no oral l esions. Cardiovascular: There is a regular rate and rhythm. No murmur, rub or gallop is appreciated. Respiratory: Lungs are clear to auscultation, respirations are non-labored, breath sounds are equal. No wheezes, stridor, rales, or rhonchi. Musculoskeletal: Normal ROM, no tenderness. Strength 5/5. Sensation intact. R adial pulses equal bilaterally 2+. Neurological: A&O x 3. CN II-XII intact, There are no obvious motor or sensory deficits. Coordination appears grossly intact. Speech is normal. Skin: Skin is warm and dry and no rashes or lesions are noted. Psychiatric: Cooperative, appropriate mood & affect, normal judgment. Limitations: no limitations Course Vital Signs 11/05/18 11/05/18 14:45 16:10 Temperature 98.4 F 98.4 F Pulse Rate 89 89 Respiratory 18 18 Rate Blood Pressure 147/60 147/60 O2 Sat by Pulse 94 L 94 L Oximetry Medical Decision Making - Medical Decision Making 63 female presenting for possible ingestion of tooth. Chest x-ray clear no evidence of aspiration of tooth. No evidence of obvious foreign body in stomach. At this time patient is a cigarette fishes stable for discharge patient agreeable patient discharged appearing well no other complaints. Disposition Clinical Impression: Gingival bleeding Disposition: HOME SELF-CARE Condition: Good Additional Instructions: Please use medication as discussed. Please follow-up with dentist as scheduled. Please return to emergency room if the symptoms increase or worsen or for any other concerns. Is patient prescribed a controlled substance at d/c from ED?: No Referrals: Maxim Montilla MD [Primary Care Provider] - 1-2 days Time of Disposition: 15:43
== END 2018-11-05 16:10 | disposition home or self-care (01) ==
LOC: EC 14:38
DX: K06.8 Other specified disorders of gingiva and edentulous alveolar ridge (principal); E11.9 Type 2 diabetes mellitus without complications; M19.90 Unspecified osteoarthritis, unspecified site; E07.9 Disorder of thyroid, unspecified; F32.9 Major depressive disorder, single episode, unspecified; Z79.4 Long term (current) use of insulin; Z79.01 Long term (current) use of anticoagulants; Z79.1 Long term (current) use of non-steroidal anti-inflammatories (NSAID); Z79.899 Other long term (current) drug therapy; Z86.711 Personal history of pulmonary embolism; Z98.84 Bariatric surgery status; Z90.49 Acquired absence of other specified parts of digestive tract; Z91.048 Other nonmedicinal substance allergy status; Z96.651 Presence of right artificial knee joint; Z98.41 Cataract extraction status, right eye; Z98.42 Cataract extraction status, left eye
CPT/HCPCS: 71046; 99283